=== PATIENT | male | born 1995 | race Caucasian/White ===

== ENCOUNTER 2018-12-30 19:53 | Emergency (ER) | payer SELFPAY ==
[2018-12-30] MEDS ORDERED: METHYLPREDNISOLONE 125 MG INJ ONE (20:53)
[2018-12-30] MEDS ORDERED: ALBUTEROL 2.5 MG/3 ML NEB SOL ONE (20:54)
[2018-12-30] MEDS ORDERED: NA CHLORIDE 0.9% 1,000 ML ONE (20:54)
[2018-12-30] MEDS ORDERED: IPRATROPIUM BROM 0.5MG/2.5ML ONE (20:54)
--- NOTE | 2018-12-30 22:01 | ER ---
Nurse's Notes [facility] Name: Reggie Calvo Age: 23 yrs Sex: Male : 1995 Arrival Date: 12/30/2018 Time: 19:57 Bed 26 Private MD: Diagnosis: Unspecified asthma with (acute) exacerbation Presentation: 12/30 19:59 Presenting complaint: Patient states: Asthma exacerbation for 2 days with little relief aj from rescue inhaler. Transition of care: patient was not received from another setting of care. Onset of symptoms was December 28, 2018. Risk Assessment: Do you want to hurt yourself or someone else? Patient reports no desire to harm self or others. Initial Sepsis Screen: Does the patient meet any 2 criteria? No. Patient's initial sepsis screen is negative. Does the patient have a suspected source of infection? No. Patient's initial sepsis screen is negative. Care prior to arrival: None. 19:59 Method Of Arrival: Ambulatory aj 19:59 Acuity: LINDA 4 aj Triage Assessment: 20:01 General: Appears in no apparent distress. comfortable, Behavior is calm, cooperative, aj appropriate for age. Pain: Denies pain. Neuro: Level of Consciousness is awake, alert, obeys commands, Oriented to person, place, time, situation, Appropriate for age. Respiratory: Reports shortness of breath Breath sounds with wheezes bilaterally. the patient has mild shortness of breath. Derm: Skin is intact, is healthy with good turgor, Skin is pink, warm \T\ dry. normal. Historical: - Allergies: 20:01 No Known Allergies; aj - Home Meds: 20:01 Singulair Oral [Active]; ProAir HFA inhalation inhalation [Active]; aj - PMHx: 20:01 Asthma; aj - PSHx: 20:01 None; aj - Immunization history:: Adult Immunizations up to date. - Social history:: Smoking status: Patient uses tobacco products, smokes one-half pack cigarettes per day. - Ebola Screening: : Patient negative for fever greater than or equal to 101.5 degrees Fahrenheit, and additional compatible Ebola Virus Disease symptoms Patient denies exposure to infectious person Patient denies travel to an Ebola-affected area in the 21 days before illness onset No symptoms or risks identified at this time. Screenin:34 Abuse screen: Denies threats or abuse. Denies injuries from another. Nutritional rv screening: No deficits noted. Tuberculosis screening: No symptoms or risk factors identified. Fall Risk None identified. Assessment: 20:32 General: Appears in no apparent distress. comfortable, Behavior is calm, cooperative. rv Pain: Denies pain. Neuro: Level of Consciousness is awake, alert, obeys commands, Oriented to person, place, time, situation. Cardiovascular: Patient's skin is warm and dry. Respiratory: Airway is patent Respiratory effort is even, Breath sounds with wheezes bilaterally. GI: No signs and/or symptoms were reported involving the gastrointestinal system. : No signs and/or symptoms were reported regarding the genitourinary system. EENT: No signs and/or symptoms were reported regarding the EENT system. Derm: Skin is intact. Musculoskeletal: No signs and/or symptoms reported regarding the musculoskeletal system. 21:58 Reassessment: Patient appears in no apparent distress at this time. Patient and/or rv family updated on plan of care and expected duration. Pain level reassessed. Patient is alert, oriented x 3, equal unlabored respirations, skin warm/dry/pink. Patient denies pain at this time. Patient states feeling better. Patient states symptoms have improved. Vital Signs: 20:01 BP 114 / 74; Pulse 66; Resp 21; Temp 97.8; Pulse Ox 97% on R/A; Weight 54.43 kg; Height aj 5 ft. 5 in. (165.10 cm); 21:00 BP 111 / 65; Pulse 77; Resp 17; Temp 98; Pulse Ox 96% on R/A; rv 21:49 BP 109 / 68; Pulse 73; Resp 18; Pulse Ox 100% on R/A; mg2 20:01 Body Mass Index 19.97 (54.43 kg, 165.10 cm) ED Course: 19:57 Patient arrived in ED. do 20:00 Triage completed. aj 20:01 Arm band placed on right wrist. Patient placed in an exam room. aj 20:06 Brigette Cat FNP-C is PHCP. snw 20:06 David Reyes MD is Attending Physician. snw 20:17 Joseph Harris RN is Primary Nurse. rv 20:33 Inserted saline lock: 20 gauge in right forearm, using aseptic technique. rv 20:34 Patient has correct armband on for positive identification. Bed in low position. Call rv light in reach. Side rails up X 1. Adult w/ patient. Pulse ox on. NIBP on. 21:50 No provider procedures requiring assistance completed. mg2 22:07 IV discontinued, intact, bleeding controlled, No redness/swelling at site. Pressure rv dressing applied. Administered Medications: 20:30 Drug: DuoNeb (3:1) (2.5 mg - 0.5 mg) 3 ml Route: Nebulizer; rv 20:50 Follow up: Response: Marked relief of symptoms rv 20:35 Drug: SOLU-Medrol 125 mg Route: IVP; Site: right forearm; rv 20:49 Follow up: Response: Marked relief of symptoms rv 20:35 Drug: NS 0.9% 1000 ml Route: IV; Rate: 1 bolus; Site: right forearm; rv 21:19 Follow up: IV Status: Completed infusion; IV Intake: 1000ml rv Intake: 21:19 IV: 1000ml; Total: 1000ml. rv Outcome: 22:00 Discharged to home ambulatory. rv 22:00 Condition: improved 22:00 Discharge instructions given to patient, Instructed on discharge instructions, follow up and referral plans. medication usage, Demonstrated understanding of instructions, follow-up care, medications, Prescriptions given X 3. 22:01 Discharge ordered by MD. arechiga 22:07 Patient left the ED. rv Signatures: Lucía Rivera, RN RN Brigette Galan FNP-C PROCEDURES ANALYST-Csnw Salome Alicea Michele, RN RN mg2 Vicente, Ronaldo, RN RN rv
--- NOTE | 2018-12-30 22:02 | EDPHYS ---
Physician Documentation [facility] Name: Reggie Calvo Age: 23 yrs Sex: Male : 1995 Arrival Date: 12/30/2018 Time: 19:57 Bed 26 Private MD: ED Physician David Reyes HPI: 12/30 21:28 This 23 yrs old Male presents to ER via Ambulatory with complaints of Asthma snw Exacerbation. 21:28 The patient presents to the emergency department with wheezing, Current therapy: snw albuterol inhaler, singulair. Onset: The symptoms/episode began/occurred suddenly, 2 day(s) ago, and became persistent. Modifying factors: The symptoms are alleviated by nothing. Associated signs and symptoms: The patient has no apparent associated signs or symptoms. Severity of symptoms: At their worst the symptoms were moderate in the emergency department the symptoms are unchanged. It is unknown whether or not the patient has had similar symptoms in the past. The patient has not recently seen a physician. pt unable to afford symbicort. 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 Historical: - Allergies: 20:01 No Known Allergies; aj - Home Meds: 20:01 Singulair Oral [Active]; ProAir HFA inhalation inhalation [Active]; aj - PMHx: 20:01 Asthma; aj - PSHx: 20:01 None; aj - Immunization history:: Adult Immunizations up to date. - Social history:: Smoking status: Patient uses tobacco products, smokes one-half pack cigarettes per day. - Ebola Screening: : Patient negative for fever greater than or equal to 101.5 degrees Fahrenheit, and additional compatible Ebola Virus Disease symptoms Patient denies exposure to infectious person Patient denies travel to an Ebola-affected area in the 21 days before illness onset No symptoms or risks identified at this time. ROS: 20:36 Constitutional: Negative for fever, chills, and weight loss, Eyes: Negative for injury, snw pain, redness, and discharge, ENT: Negative for injury, pain, and discharge, Neck: Negative for injury, pain, and swelling, Cardiovascular: Negative for chest pain, palpitations, and edema, Abdomen/GI: Negative for abdominal pain, nausea, vomiting, diarrhea, and constipation, Back: Negative for injury and pain, : Negative for injury, bleeding, discharge, and swelling, MS/Extremity: Negative for injury and deformity, Skin: Negative for injury, rash, and discoloration, Neuro: Negative for headache, weakness, numbness, tingling, and seizure, Psych: Negative for depression, anxiety, suicide ideation, homicidal ideation, and hallucinations. 20:36 Respiratory: Positive for cough, shortness of breath, wheezing. Exam: 20:36 Constitutional: This is a well developed, well nourished patient who is awake, alert, snw and in no acute distress. Head/Face: Normocephalic, atraumatic. Eyes: Pupils equal round and reactive to light, extra-ocular motions intact. Lids and lashes normal. Conjunctiva and sclera are non-icteric and not injected. Cornea within normal limits. Periorbital areas with no swelling, redness, or edema. ENT: Nares patent. No nasal discharge, no septal abnormalities noted. Tympanic membranes are normal and external auditory canals are clear. Oropharynx with no redness, swelling, or masses, exudates, or evidence of obstruction, uvula midline. Mucous membranes moist. Neck: Trachea midline, no thyromegaly or masses palpated, and no cervical lymphadenopathy. Supple, full range of motion without nuchal rigidity, or vertebral point tenderness. No Meningismus. Chest/axilla: Normal chest wall appearance and motion. Nontender with no deformity. No lesions are appreciated. Cardiovascular: Regular rate and rhythm with a normal S1 and S2. No gallops, murmurs, or rubs. Normal PMI, no JVD. No pulse deficits. Abdomen/GI: Soft, non-tender, with normal bowel sounds. No distension or tympany. No guarding or rebound. No evidence of tenderness throughout. Back: No spinal tenderness. No costovertebral tenderness. Full range of motion. Skin: Warm, dry with normal turgor. Normal color with no rashes, no lesions, and no evidence of cellulitis. MS/ Extremity: Pulses equal, no cyanosis. Neurovascular intact. Full, normal range of motion. Neuro: Awake and alert, GCS 15, oriented to person, place, time, and situation. Cranial nerves II-XII grossly intact. Motor strength 5/5 in all extremities. Sensory grossly intact. Cerebellar exam normal. Normal gait. Psych: Awake, alert, with orientation to person, place and time. Behavior, mood, and affect are within normal limits. 20:36 Respiratory: mild respiratory distress is noted, Respirations: labored breathing, shallow respirations, tachypnea, Breath sounds: decreased breath sounds, wheezing: Vital Signs: 20:01 BP 114 / 74; Pulse 66; Resp 21; Temp 97.8; Pulse Ox 97% on R/A; Weight 54.43 kg; Height aj 5 ft. 5 in. (165.10 cm); 21:00 BP 111 / 65; Pulse 77; Resp 17; Temp 98; Pulse Ox 96% on R/A; rv 21:49 BP 109 / 68; Pulse 73; Resp 18; Pulse Ox 100% on R/A; mg2 20:01 Body Mass Index 19.97 (54.43 kg, 165.10 cm) aj MDM: 20:07 Patient medically screened. barry 22:00 Data reviewed: vital signs, nurses notes. Data interpreted: Pulse oximetry: on room air snw is 100 %. Interpretation: normal. Counseling: I had a detailed discussion with the patient and/or guardian regarding: the historical points, exam findings, and any diagnostic results supporting the discharge/admit diagnosis, the need for outpatient follow up, to return to the emergency department if symptoms worsen or persist or if there are any questions or concerns that arise at home, smoking cessation. Response to treatment: the patient's symptoms have markedly improved after treatment. Special discussion: Based on the history and exam findings, there is no indication for further emergent testing or inpatient evaluation. I discussed with the patient/guardian the need to see the primary care provider for further evaluation of the symptoms. 12/30 20:35 Order name: IV Start; Complete Time: 20:35 rv Administered Medications: 20:30 Drug: DuoNeb (3:1) (2.5 mg - 0.5 mg) 3 ml Route: Nebulizer; rv 20:50 Follow up: Response: Marked relief of symptoms rv 20:35 Drug: SOLU-Medrol 125 mg Route: IVP; Site: right forearm; rv 20:49 Follow up: Response: Marked relief of symptoms rv 20:35 Drug: NS 0.9% 1000 ml Route: IV; Rate: 1 bolus; Site: right forearm; rv 21:19 Follow up: IV Status: Completed infusion; IV Intake: 1000ml rv Disposition: 12/31 06:49 Co-signature as Attending Physician, David Reyes MD I agree with the assessment and barry plan of care. Disposition: 12/30/18 22:01 Discharged to Home. Impression: Unspecified asthma with (acute) exacerbation. - Condition is Stable. - Discharge Instructions: Asthma, Adult, Steps to Quit Smoking, Smoking Hazards, Form - Asthma Action Plan, Adult. - Prescriptions for Zyrtec 10 mg Oral Tablet - take 1 tablet by ORAL route once daily As needed; 20 tablet. Prednisone 20 mg Oral Tablet - take 2 tablet by ORAL route once daily for 5 days; 10 tablet. Albuterol Sulfate 90 mcg/actuation - inhale 1-2 puff by INHALATION route every 4-6 hours; 1 Inhaler. - Work release form, Medication Reconciliation Form, Thank You Letter, Antibiotic Education, Prescription Opioid Use form. - Follow up: Private Physician; When: 2 - 3 days; Reason: Recheck today's complaints, Continuance of care, Re-evaluation by your physician. Follow up: Emergency Department; When: As needed; Reason: Worsening of condition. Signatures: Lucía Rivera, RN David Taveras MD MD cha Therrien, Shelly, SEED POTATO ARRANGER-C SEED POTATO ARRANGER-Csnw Joseph Harris RN RN rv Corrections: (The following items were deleted from the chart) 12/30 22:07 22:01 12/30/2018 22:01 Discharged to Home. Impression: Unspecified asthma with (acute) rv exacerbation. Condition is Stable. Discharge Instructions: Asthma, Adult, Form - Asthma Action Plan, Adult. Prescriptions for Zyrtec 10 mg Oral Tablet - take 1 tablet by ORAL route once daily As needed; 20 tablet, Prednisone 20 mg Oral Tablet - take 2 tablet by ORAL route once daily for 5 days; 10 tablet, Albuterol Sulfate 90 mcg/actuation - inhale 1-2 puff by INHALATION route every 4-6 hours; 1 Inhaler. and Forms are Work release form, Medication Reconciliation Form, Thank You Letter, Antibiotic Education, Prescription Opioid Use. Follow up: Private Physician; When: 2 - 3 days; Reason: Recheck today's complaints, Continuance of care, Re-evaluation by your physician. Follow up: Emergency Department; When: As needed; Reason: Worsening of condition. snw
== END 2018-12-30 22:07 | disposition home or self-care (01) ==
LOC: ER 19:53
DX: J45.901 Unspecified asthma with (acute) exacerbation (principal); F17.210 Nicotine dependence, cigarettes, uncomplicated
CPT/HCPCS: 94640; 96361; 96374; 99284; J2930; J7030

== ENCOUNTER 2019-01-19 13:49 | Observation (INO) | payer SELFPAY ==
--- OUTSIDE RECORDS SUMMARY | 2019-01-19 13:54 | XMS REPORT ---
:1995 Author Organization [employer] Care Team Providers Name Role Phone Cydney Mccollum Provider Role Unavailable Allergies No Known Allergies Problems Problem Type Condition Code Onset Dates Condition Status Problem Costochondral chest pain R07.1 Active Problem Allergic rhinitis, unspecified J30.9 Active Problem Asthma J45.909 Active Medications No Known Medications Results No Known Results Summary Purpose [employer] Submission
--- OUTSIDE RECORDS SUMMARY | 2019-01-19 13:54 | XMS REPORT ---
:1995 [facility] Address [address] [place]. [address] [place] [id number] Care Team Providers Name Role Phone Unavailable Unavailable Unavailable Problems This patient has no known problems. Allergies, Adverse Reactions, Alerts This patient has no known allergies or adverse reactions. Medications This patient has no known medications.
--- OUTSIDE RECORDS SUMMARY | 2019-01-19 13:54 | XMS REPORT ---
:1995 Author Organization [employer] Care Team Providers Name Role Phone Cydney Mccollum Provider Role Unavailable Allergies, Adverse Reactions, Alerts Substance Reaction Event Type Pet dander shortness of breath Non Drug Allergy Problems Problem Type Condition Code Onset Dates Condition Status Problem Costochondral chest pain R07.1 Active Problem Allergic rhinitis, unspecified J30.9 Active Problem Asthma J45.909 Active Assessment Asthma J45.909 Active Medications Medication Code Code Instructions Start End Date Status Dosage System Date Symbicort [facility] 87732515035 160-4.5 MCG/ACT Jul 08, Active 2 puffs Inhalation Twice 2019 a day Albuterol [facility] [id number] 108 (90 Base) Active 2 puffs Sulfate HFA MCG/ACT as needed Inhalation every 6 hrs Results No Known Results Summary Purpose [employer]Works Submission
--- OUTSIDE RECORDS SUMMARY | 2019-01-19 13:54 | XMS REPORT ---
:1995 Author Organization [employer] Care Team Providers Name Role Phone [place] gam[place] Provider Role Unavailable Allergies, Adverse Reactions, Alerts Substance Reaction Event Type Pet dander shortness of breath Non Drug Allergy Problems Problem Type Condition Code Onset Dates Condition Status Problem Costochondral chest pain R07.1 Active Problem Allergic rhinitis, unspecified J30.9 Active Problem Asthma J45.909 Active Assessment Hemorrhoids, external K64.4 Active Assessment Asthma J45.909 Active Medications Medication Code Code Instructions Start End Status Dosage System Date Date Symbicort [facility] 54334508832 160-4.5 MCG/ACT Jul 08, November 05, Active 2 puffs Inhalation Twice 2018 2019 a day Albuterol [facility] [address]-93 108 (90 Base) Active 2 puffs Sulfate HFA MCG/ACT as needed Inhalation every 6 hrs Results No Known Results Summary Purpose eClinicalWorks Submission
--- OUTSIDE RECORDS SUMMARY | 2019-01-19 13:54 | XMS REPORT ---
:1995 Author Organization [employer] Care Team Providers Name Role Phone Citronelle Cydney Provider Role Unavailable Allergies No Known Allergies Problems Problem Type Condition Code Onset Dates Condition Status Problem Costochondral chest pain R07.1 Active Problem Allergic rhinitis, unspecified J30.9 Active Problem Asthma J45.909 Active Medications No Known Medications Results No Known Results Summary Purpose [employer]ClinicalWorks Submission
[2019-01-19] MEDS ORDERED: dexAMETHasone 10 MG/ML VIAL ONE ×2 (13:58→14:02)
[2019-01-19] MEDS ORDERED: METHYLPREDNISOLONE 125 MG INJ ONE ×2 (13:58→14:02)
[2019-01-19] MEDS ORDERED: IPRATROPIUM BROM 0.5MG/2.5ML ONE ×2 (13:59→14:02)
[2019-01-19] MEDS ORDERED: ALBUTEROL 2.5 MG/3 ML NEB SOL ONE (13:59)
[2019-01-19] MEDS ORDERED: LEVALBUTEROL 1.25 MG/3 ML NEB ONE ×2 (14:03→15:27)
--- NOTE | 2019-01-19 14:07 | ER ---
Nurse's Notes [facility] Name: Reggie Calvo Age: 23 yrs Sex: Male : 1995 Arrival Date: 01/19/2019 Time: 13:50 Bed 19 Private MD: Diagnosis: Asthma;Acute upper respiratory infection, unspecified;Hypoxemia Presentation: 01/19 13:53 Presenting complaint: Patient states: SOB with difficulty breathing since waking up. aj Albuterol not helping. Transition of care: patient was not received from another setting of care. Onset of symptoms was January 19, 2019 at 13:53. Risk Assessment: Do you want to hurt yourself or someone else? Patient reports no desire to harm self or others. Initial Sepsis Screen: Does the patient meet any 2 criteria? No. Patient's initial sepsis screen is negative. Does the patient have a suspected source of infection? No. Patient's initial sepsis screen is negative. Care prior to arrival: None. 13:53 Method Of Arrival: Ambulatory 13:53 Acuity: LINDA 2 hb Triage Assessment: 13:54 General: Appears in no apparent distress. uncomfortable, Behavior is calm, cooperative, aj appropriate for age. Pain: Denies pain. Neuro: Level of Consciousness is awake, alert, obeys commands, Oriented to person, place, time, situation, Appropriate for age. Respiratory: Reports shortness of breath at rest Airway is patent Respiratory effort is even, unlabored, Respiratory pattern is tachypnea. Derm: Skin is intact, is healthy with good turgor, Skin is pink, warm \T\ dry. normal. Historical: - Allergies: 13:54 No Known Allergies; aj - Home Meds: 15:35 ProAir HFA inhalation [Active]; Singulair Oral [Active]; hb - PMHx: 15:35 Asthma; hb - PSHx: 15:35 None; hb - Immunization history:: Adult Immunizations up to date. - Social history:: Smoking status: Patient uses tobacco products, smokes one pack cigarettes per day. - Ebola Screening: : Patient negative for fever greater than or equal to 101.5 degrees Fahrenheit, and additional compatible Ebola Virus Disease symptoms Patient denies exposure to infectious person Patient denies travel to an Ebola-affected area in the 21 days before illness onset No symptoms or risks identified at this time. - Family history:: not pertinent. Screenin:30 Abuse screen: Denies threats or abuse. Denies injuries from another. Nutritional hb screening: No deficits noted. Tuberculosis screening: No symptoms or risk factors identified. Fall Risk None identified. Assessment: 14:00 General: Appears distressed, Behavior is cooperative, anxious, restless. Pain: Denies hb pain. Neuro: Level of Consciousness is awake, alert, obeys commands, Oriented to person, place, time, situation. Cardiovascular: Heart tones S1 S2 present Capillary refill < 3 seconds Patient's skin is warm and dry. Respiratory: Airway is patent Respiratory effort is labored, Respiratory pattern is tachypnea Breath sounds with wheezes bilaterally. GI: No signs and/or symptoms were reported involving the gastrointestinal system. : No signs and/or symptoms were reported regarding the genitourinary system. EENT: No signs and/or symptoms were reported regarding the EENT system. Derm: Skin is intact, is healthy with good turgor, Skin is pink, warm \T\ dry. Musculoskeletal: No signs and/or symptoms reported regarding the musculoskeletal system. 15:00 Reassessment: Patient and/or family updated on plan of care and expected duration. Pain hb level reassessed. Patient is alert, oriented x 3, equal unlabored respirations, skin warm/dry/pink. R22-26, respirations mildly labored, improved from previous assessment. SpO2 94-98% on RA. Dr. Reyes aware. Family remains at bedside. Vital Signs: 13:54 BP 141 / 86; Pulse 100; Resp 29; Temp 97.6; Pulse Ox 92% on R/A; Weight 54.43 kg; aj Height 5 ft. 5 in. (165.10 cm); 14:15 BP 132 / 82; Pulse 78; Resp 22; Pulse Ox 96% on R/A; hb 14:30 BP 127 / 68; Pulse 97; Resp 24; Pulse Ox 94% on R/A; Pain 0/10; hb 13:54 Body Mass Index 19.97 (54.43 kg, 165.10 cm) ED Course: 13:50 Patient arrived in ED. as 13:51 David Reyes MD is Attending Physician. [facility] 13:54 Triage completed. aj 13:54 Arm band placed on left wrist. Patient placed in an exam room. aj 14:05 Will, Salman, MD is Hospitalizing Provider. barry 14:05 Initial lab(s) drawn, by me, sent to lab. Inserted saline lock: 20 gauge in right dh3 antecubital area, using aseptic technique. Blood collected. 14:08 Jaida Beaulieu, RN is Primary Nurse. hb 14:16 XRAY Chest (1 view) In Process Unspecified. EDMS 14:20 Second set of blood cultures drawn by me. 3 14:30 Patient has correct armband on for positive identification. Bed in low position. Call hb light in reach. Side rails up X 1. 14:43 EKG done, by solid waste technician. reviewed by David Reyes MD. 3 14:51 BIPAP Sent. hb 15:55 No provider procedures requiring assistance completed. Patient admitted, IV remains in hb place. Administered Medications: 14:08 Drug: AtroVENT Aerosol 0.5 mg Route: Inhalation; hb 15:00 Follow up: Response: No adverse reaction hb 14:09 Drug: Xopenex 3.75 mg Route: Inhalation; hb 15:00 Follow up: Response: No adverse reaction hb 14:09 Drug: SOLU-Medrol 125 mg Route: IVP; Site: right antecubital; hb 14:40 Follow up: Response: No adverse reaction hb 14:09 Drug: Decadron - Dexamethasone 10 mg Route: IVP; Site: right antecubital; hb 14:40 Follow up: Response: No adverse reaction hb 14:24 Drug: Rocephin 1 grams Route: IV; Rate: per protocol; Site: right antecubital; hb 15:00 Follow up: Response: No adverse reaction; IV Status: Completed infusion hb 14:24 Drug: Magnesium Sulfate 2 grams Route: IVPB; Infused Over: 2 hrs; Site: right hb antecubital; 15:57 Follow up: IV Status: Infusion continued upon admission hb 15:24 Drug: Zithromax 500 mg Route: IVPB; Infused Over: 1 hrs; Site: right antecubital; hb 15:50 Follow up: IV Status: Infusion continued upon admission hb 15:30 Drug: Xopenex 2.5 mg Route: Inhalation; hb 15:54 Follow up: Response: No adverse reaction hb Outcome: 14:05 Decision to Hospitalize by Provider. barry 15:55 Admitted to Med/surg accompanied by tech, via wheelchair, room 224, with chart, Report hb called to Niyah HOYT 15:55 Condition: stable 15:55 Instructed on the need for admit, Demonstrated understanding of instructions. 15:55 Patient left the ED. hb Signatures: Dispatcher [employer] Lucía Sharma, David Taveras RN, MD MD cha Martinez, Amelia as Baxter, Heather, RN RN hb Herrera, Deanna 3 Martina Renee 3 Corrections: (The following items were deleted from the chart) 14:10 13:53 Acuity: LINDA 3 aj seng
--- NOTE | 2019-01-19 14:07 | EDPHYS ---
Physician Documentation [facility] Name: Reggie Calvo Age: 23 yrs Sex: Male : 1995 Arrival Date: 01/19/2019 Time: 13:50 Bed 19 Private MD: ED Physician David Reyes HPI: 01/19 14:01 This 23 yrs old Male presents to ER via Ambulatory with complaints of Asthma barry Exacerbation. 14:01 The patient presents to the emergency department with wheezing, Current therapy: barry albuterol nebs, that began without any particular precipitating event. Onset: The symptoms/episode began/occurred yesterday. Modifying factors: The symptoms are alleviated by nothing, the symptoms are aggravated by nothing. Associated signs and symptoms: The patient has no apparent associated signs or symptoms. Severity of symptoms: At their worst the symptoms were mild in the emergency department the symptoms are unchanged. The patient has not experienced similar symptoms in the past. Historical: - Allergies: 13:54 No Known Allergies; aj - Home Meds: 15:35 ProAir HFA inhalation [Active]; Singulair Oral [Active]; hb - PMHx: 15:35 Asthma; hb - PSHx: 15:35 None; hb - Immunization history:: Adult Immunizations up to date. - Social history:: Smoking status: Patient uses tobacco products, smokes one pack cigarettes per day. - Ebola Screening: : Patient negative for fever greater than or equal to 101.5 degrees Fahrenheit, and additional compatible Ebola Virus Disease symptoms Patient denies exposure to infectious person Patient denies travel to an Ebola-affected area in the 21 days before illness onset No symptoms or risks identified at this time. - Family history:: not pertinent. ROS: 14:01 Constitutional: Negative for fever, chills, and weight loss, Eyes: Negative for injury, barry pain, redness, and discharge, ENT: Negative for injury, pain, and discharge, Neck: Negative for injury, pain, and swelling, Cardiovascular: Negative for chest pain, palpitations, and edema, Abdomen/GI: Negative for abdominal pain, nausea, vomiting, diarrhea, and constipation, Back: Negative for injury and pain, : Negative for injury, bleeding, discharge, and swelling, MS/Extremity: Negative for injury and deformity, Skin: Negative for injury, rash, and discoloration, Neuro: Negative for headache, weakness, numbness, tingling, and seizure, Psych: Negative for depression, anxiety, suicide ideation, homicidal ideation, and hallucinations, Allergy/Immunology: Negative for hives, rash, and allergies, Endocrine: Negative for neck swelling, polydipsia, polyuria, polyphagia, and marked weight changes, Hematologic/Lymphatic: Negative for swollen nodes, abnormal bleeding, and unusual bruising. 14:01 Respiratory: Positive for cough, shortness of breath, wheezing, inspiratory, expiratory. Exam: 14:01 Constitutional: This is a well developed, well nourished patient who is awake, alert, barry and in no acute distress. Head/Face: Normocephalic, atraumatic. Eyes: Pupils equal round and reactive to light, extra-ocular motions intact. Lids and lashes normal. Conjunctiva and sclera are non-icteric and not injected. Cornea within normal limits. Periorbital areas with no swelling, redness, or edema. ENT: Nares patent. No nasal discharge, no septal abnormalities noted. Tympanic membranes are normal and external auditory canals are clear. Oropharynx with no redness, swelling, or masses, exudates, or evidence of obstruction, uvula midline. Mucous membranes moist. Neck: Trachea midline, no thyromegaly or masses palpated, and no cervical lymphadenopathy. Supple, full range of motion without nuchal rigidity, or vertebral point tenderness. No Meningismus. Chest/axilla: Normal chest wall appearance and motion. Nontender with no deformity. No lesions are appreciated. Cardiovascular: Regular rate and rhythm with a normal S1 and S2. No gallops, murmurs, or rubs. Normal PMI, no JVD. No pulse deficits. Abdomen/GI: Soft, non-tender, with normal bowel sounds. No distension or tympany. No guarding or rebound. No evidence of tenderness throughout. Back: No spinal tenderness. No costovertebral tenderness. Full range of motion. Male : Normal genitalia with no discharge or lesions. Skin: Warm, dry with normal turgor. Normal color with no rashes, no lesions, and no evidence of cellulitis. MS/ Extremity: Pulses equal, no cyanosis. Neurovascular intact. Full, normal range of motion. Neuro: Awake and alert, GCS 15, oriented to person, place, time, and situation. Cranial nerves II-XII grossly intact. Motor strength 5/5 in all extremities. Sensory grossly intact. Cerebellar exam normal. Normal gait. Psych: Awake, alert, with orientation to person, place and time. Behavior, mood, and affect are within normal limits. 14:01 Respiratory: moderate respiratory distress is noted, Respirations: labored breathing, that is moderate, Breath sounds: bronchial sounds, decreased breath sounds, rhonchi, + upper airway congestion. wheezing: inspiratory expiratory is heard diffusely. Vital Signs: 13:54 BP 141 / 86; Pulse 100; Resp 29; Temp 97.6; Pulse Ox 92% on R/A; Weight 54.43 kg; aj Height 5 ft. 5 in. (165.10 cm); 14:15 BP 132 / 82; Pulse 78; Resp 22; Pulse Ox 96% on R/A; hb 14:30 BP 127 / 68; Pulse 97; Resp 24; Pulse Ox 94% on R/A; Pain 0/10; hb 13:54 Body Mass Index 19.97 (54.43 kg, 165.10 cm) aj MDM: 13:58 Patient medically screened. [facility] 14:03 Data reviewed: vital signs, nurses notes, lab test result(s), EKG, radiologic studies, barry plain films. 01/19 14:01 Order name: Basic Metabolic Panel; Complete Time: 15:16 [facility] 01/19 14:01 Order name: CBC with Diff; Complete Time: 15:16 [facility] 01/19 14:01 Order name: LFT's; Complete Time: 15:16 [facility] 01/19 14:01 Order name: Magnesium; Complete Time: 15:16 [facility] 01/19 14:01 Order name: NT PRO-BNP; Complete Time: 15:16 [facility] 01/19 14:01 Order name: PT-INR; Complete Time: 15:16 [facility] 01/19 14:01 Order name: Troponin (emerg Dept Use Only); Complete Time: 15:16 [facility] 01/19 14:01 Order name: XRAY Chest (1 view); Complete Time: 15:16 [facility] 01/19 14:01 Order name: Blood Culture Adult (2) [facility] 01/19 14:01 Order name: BIPAP [facility] 01/19 14:01 Order name: Flu [facility] 01/19 14:01 Order name: EKG; Complete Time: 14:03 [facility] 01/19 14:01 Order name: Cardiac monitoring; Complete Time: 14:09 [facility] 01/19 14:01 Order name: EKG - Nurse/Tech; Complete Time: 14:51 [facility] 01/19 14:01 Order name: IV Saline Lock; Complete Time: 14:10 [facility] 01/19 14:01 Order name: Labs collected and sent; Complete Time: 14:14 [facility] 01/19 14:01 Order name: O2 Per Protocol; Complete Time: 14:10 [facility] 01/19 14:01 Order name: O2 Sat Monitoring; Complete Time: 14:14 [facility] Administered Medications: 14:08 Drug: AtroVENT Aerosol 0.5 mg Route: Inhalation; hb 15:00 Follow up: Response: No adverse reaction hb 14:09 Drug: Xopenex 3.75 mg Route: Inhalation; hb 15:00 Follow up: Response: No adverse reaction hb 14:09 Drug: SOLU-Medrol 125 mg Route: IVP; Site: right antecubital; hb 14:40 Follow up: Response: No adverse reaction hb 14:09 Drug: Decadron - Dexamethasone 10 mg Route: IVP; Site: right antecubital; hb 14:40 Follow up: Response: No adverse reaction hb 14:24 Drug: Rocephin 1 grams Route: IV; Rate: per protocol; Site: right antecubital; hb 15:00 Follow up: Response: No adverse reaction; IV Status: Completed infusion hb 14:24 Drug: Magnesium Sulfate 2 grams Route: IVPB; Infused Over: 2 hrs; Site: right hb antecubital; 15:57 Follow up: IV Status: Infusion continued upon admission hb 15:24 Drug: Zithromax 500 mg Route: IVPB; Infused Over: 1 hrs; Site: right antecubital; hb 15:50 Follow up: IV Status: Infusion continued upon admission hb 15:30 Drug: Xopenex 2.5 mg Route: Inhalation; hb 15:54 Follow up: Response: No adverse reaction hb Disposition: 01/19/19 14:05 Hospitalization ordered by Maral Solis for Inpatient Admission. Preliminary diagnosis are Asthma, Acute upper respiratory infection, unspecified, Hypoxemia. - Bed requested for Telemetry/MedSurg (Inpatient). - Status is Inpatient Admission. hb - Condition is Serious. - Problem is new. - Symptoms have improved. UTI on Admission? No Signatures: Dispatcher [employer] EDMS Magdalene Oropeza Lucía Rivera RN RN David Reyes MD MD barry Jaida Beaulieu, RN EVELINA Joe Vega RN RN ja1 Corrections: (The following items were deleted from the chart) 15:15 14:05 Hospitalization Ordered by Maral Solis MD for Inpatient Admission. Preliminary bd diagnosis is Asthma; Acute upper respiratory infection, unspecified; Hypoxemia. Bed requested for Telemetry/MedSurg (Inpatient). Status is Inpatient Admission. Condition is Serious. Problem is new. Symptoms have improved. UTI on Admission? No. barry 15:25 15:15 01/19/2019 14:05 Hospitalization Ordered by Maral Solis MD for Inpatient ja1 Admission. Preliminary diagnosis is Asthma; Acute upper respiratory infection, unspecified; Hypoxemia. Bed requested for Telemetry/MedSurg (Inpatient). Status is Inpatient Admission. Condition is Serious. Problem is new. Symptoms have improved. UTI on Admission? No. bd 15:55 15:25 01/19/2019 14:05 Hospitalization Ordered by Maral Solis MD for Inpatient Admission. Preliminary diagnosis is Asthma; Acute upper respiratory infection, unspecified; Hypoxemia. Bed requested for Telemetry/MedSurg (Inpatient). Status is Inpatient Admission. Condition is Serious. Problem is new. Symptoms have improved. UTI on Admission? No. ja1
[2019-01-19] MEDS ORDERED: CEFTRIAXONE/SWI 1gm 1 GM/10 ML SYR ONE (14:14)
[2019-01-19] MEDS ORDERED: Magnesium Sulfate 2gm IVPB 2 G/50 ML BAG IV ONE (14:14)
[2019-01-19 14:23] LABS: Absolute Lymphocytes (CBC) 2.6 K/uL (0.7-4.9); Basophils % 0.7 % (0-1.3); Hematocrit 51.5 % (39.6-49.0); Lymphocytes % 26.9 % (15.3-44.8); MPV 9.7 fL (7.6-11.3); RBC Red Blood Cell Count 5.48 M/uL (4.33-5.43)
[2019-01-19 14:26] LABS: Protime INR 1.01
[2019-01-19] MEDS ORDERED: AZITHROMYCIN IV 500 MG in NA CHLORIDE 0.9% 250 ML IVPB ONE (14:30)
--- NOTE | 2019-01-19 14:39 | RAD REPORT ---
EXAM DESCRIPTION: RAD - Chest Single View - 01/19/2019 2:14 pm CLINICAL HISTORY: Dyspnea, shortness of breath COMPARISON: None. TECHNIQUE: AP portable chest image was obtained 1407 hours . FINDINGS: Lung serrano are hyperexpanded but otherwise clear. No peribronchial thickening. Interstiti al markings are not outside of normal range. Heart and vasculature are normal. No measurable pleural effusion and no pneumothorax. No acute bony abnormality seen. No acute aortic findings suspected. IMPRESSION: No infiltrate or other acute cardiopulmonary finding seen. Hyper expanded lung serrano are present. This may be baseline for the patient but could indicate react corky airway disease.
[2019-01-19 14:51] LABS: ALT/SGPT 20 U/L (12-78); AST/SGOT 17 U/L (15-37); Albumin 4.2 g/dL (3.4-5.0); Alkaline Phosphatase 64 U/L (45-117); BUN Blood Urea Nitrogen 9 mg/dL (7-18); Bicarbonate 25 mmol/L (21-32); Bilirubin Direct 0.2 mg/dL (0-0.2); Bilirubin Total 0.9 mg/dL (0.2-1.0); Glucose Level 100 mg/dL (74-106); Magnesium 2.4 mg/dL (1.8-2.4); NT PRO-BNP 147 pg/mL (<125); Potassium 4.1 mmol/L (3.5-5.1); Protein, Total 8.2 g/dL (6.4-8.2); Sodium Level 141 mmol/L (136-145); Troponin (Emerg Dept Use Only) < 0.02 ng/mL (0.0-0.045)
[2019-01-19] MEDS ORDERED: ONDANSETRON 4 MG/2 ML VIAL IV PRN (16:43)
[2019-01-19] MEDS ORDERED: ACETAMINOPHEN 500 MG TAB PO PRN (16:43)
[2019-01-19] MEDS: METHYLPREDNISOLONE 40 MG INJ IV SCH (16:47)
[2019-01-19] MEDS: IPRATROPIUM BROM 0.5MG/2.5ML NEB SCH ×2 (18:05→20:00)
[2019-01-19] MEDS: ALBUTEROL 2.5 MG/3 ML NEB SOL NEB SCH ×2 (18:05→20:00)
[2019-01-19] MEDS: DULERA 200/5 (MOMETASONE/FORMOTEROL) INHALER IH SCH (20:11)
[2019-01-19] MEDS ORDERED: MONTELUKAST 10 MG TAB PO SCH (21:00)
[2019-01-20 01:06] LABS: Urine Appearance CLEAR; Urine Bilirubin NEGATIVE (NEG); Urine Blood NEGATIVE (NEG); Urine Color YELLOW; Urine Glucose 3+ (NEG); Urine Protein NEGATIVE (NEG); Urine Specific Gravity >=1.030 (1.005-1.030); Urine Urobilinogen 0.2 mg/dL (0.2-1.0)
[2019-01-20 01:09] LABS: Urine Microscopic Reflex NO UMIC
[2019-01-20] MEDS: METHYLPREDNISOLONE 40 MG INJ IV SCH ×2 (01:19→08:59)
[2019-01-20] MEDS: NA CHLORIDE 0.9% 1,000 ML IV SCH ×2 (02:18→02:19)
--- NOTE | 2019-01-20 03:20 | HP ---
Date of Admission: 01/19/2019 Chief Complaint: Shortness of breath. History Of Present Illness: The patient is a 23-year-old male with past medical history of asthma, c omes in with shortness of breath, which is worse than his usual wheezing and which is worsened with e xertion. The patient states he is allergic to cats and dogs; however, he has both cats and dogs and live with him. He was on Singulair and Symbicort. However, currently due to lack of insurance, he i s only using a ProAir rescue inhaler. He is not on any maintenance medications. He does have nightt beverly symptoms as well. Patient's symptoms were constant, moderate, progressively worsening, therefore he came into the ER for further evaluation. Upon arrival, his vitals showed 92% on room air. He wa s tachycardic and tachypneic. The patient was then started on breathing treatments and given IV ster oids as well as IV antibiotics, which helped to improve his symptoms. The patient has received 2 g o f magnesium. The patient was then referred for admission. When seen in the ER, he was awake, alert, oriented x3. Past Medical History: Asthma. Past Surgical History: None. Allergies: NO KNOWN DRUG ALLERGIES. Medications: ProAir rescue inhaler as needed. Family History: Mother has diabetes and pancreatitis and father of complications from coronary artery disease. Social History: Patient smokes electronic cigarettes and states he drinks every other week. Denies any illicit drug use. The patient is . Review of Systems: Ten-point system reviewed, negative except as per HPI. Physical Examination: Vital Signs: Blood pressure 141/86, pulse 100, respirations 29, temperature 97.6, O2 92% on room air . General: Awake, alert, oriented x3, in some mild respiratory distress, ill-appearing male. HEENT: Normocephalic, atraumatic. PERRLA. EOMI. Moist mucous membranes. Oropharynx is clear. No rmal dentition. Conjunctivae are anicteric. Neck: Supple. No JVD. Trachea midline. CV: S1, S2. Sinus tachycardia. Peripheral pulses present. No murmurs. Respiratory: Diminished breath sounds. Diffuse wheezing is heard. Patient is tachypneic. With use of accessory muscles. Gastrointestinal: Abdomen is soft, nontender, nondistended. Positive bowel sounds. No guarding or rigidity. Extremities: No clubbing, cyanosis, or edema. No calf tenderness. Neuro: Cranial nerves 2 through 12 intact grossly. No focal neurological deficit. Speech is normal . Strength is 5/5 bilateral upper and lower extremities. Sensation intact to light touch. Skin: No rashes, normal skin turgor. Psych: Mood is okay. Affect is full. Insight and judgment are good. Laboratory Data: Sodium 141, potassium 4.1, chloride 110, CO2 25, BUN 9, creatinine 0.94, glucose 10 0, calcium 8.6. Magnesium 2.4. Troponin less than 0.02. WBC 9.7, hemoglobin and hematocrit 17.1 an d 51.5, platelets 203, neutrophils 58%. INR 1. Influenza screen pending. Chest x-ray personally re viewed, shows no infiltrate or other acute cardiopulmonary finding. Hyperexpanded lung serrano are pr esent. This may be baseline for the patient could indicate reactive airway disease. Assessment: A 23-year-old male with: 1.Acute asthma exacerbation. The patient has moderate persistent asthma with daily symptoms and nig httime symptoms more than twice a week. The patient is allergic to cats and dogs, however, still con tinues to have pets that live with him indoors. The patient currently out of his Symbicort and Singu lair. For now, we will continue on nebulizer treatments and IV steroids. Measure peak flow now and before discharge. The patient will need an action plan upon discharge as well. 2.Acute respiratory distress, improved with supplemental oxygenation. 3.Allergic status to pet dander specifically cats and dogs. 4.Deep venous thrombosis prophylaxis with Lovenox. Plan: Admit the patient to Med-Surg, place as observation. Patient was given information on good Rx . Patient is able to apply for prescription assistance program with [employer] and can receive his Symbicort better discounted delatorre. The patient counseled regarding avoiding allergens including pet dander. The patient voiced understanding, however, at this time is not ready to part with his pets. JOSE Voice ID: [id number]
[2019-01-20] MEDS: ALBUTEROL 2.5 MG/3 ML NEB SOL NEB SCH ×4 (04:00→12:00)
[2019-01-20] MEDS: IPRATROPIUM BROM 0.5MG/2.5ML NEB SCH ×4 (04:00→12:00)
--- NOTE | 2019-01-20 05:31 | EKG ---
Test Date: 2019-01-19 Test Time: 14:39:01 Representative Government Relations: YUDI MEASUREMENT RESULTS: Intervals: Rate: 92 NJ: 136 QRSD: 92 QT: 344 QTc: 425 [place]: P: 87 NJ: 136 QRS: 265 T: 82 INTERPRETIVE STATEMENTS: Normal sinus rhythm Right atrial enlargement Right superior axis deviation Pulmonary disease pattern Incomplete right bundle branch block Abnormal ECG No previous ECG available for comparison Electronically Signed On 01-20-19 05:30:46 CDT by Wilfrido Soto
[2019-01-20 06:38] LABS: Absolute Lymphocytes (CBC) 0.7 K/uL (0.7-4.9); Basophils % 0.3 % (0-1.3); Hematocrit 42.1 % (39.6-49.0); Lymphocytes % 5.1 % (15.3-44.8); MPV 9.6 fL (7.6-11.3); RBC Red Blood Cell Count 4.49 M/uL (4.33-5.43)
[2019-01-20 06:39] LABS: BUN Blood Urea Nitrogen 8 mg/dL (7-18); Bicarbonate 22 mmol/L (21-32); Glucose Level 154 mg/dL (74-106); Potassium 3.9 mmol/L (3.5-5.1); Sodium Level 142 mmol/L (136-145)
[2019-01-20 08:16] LABS: Blood Morphology Comment NOT SEEN (NOT SEEN); Platelet Estimate ADEQ
[2019-01-20 08:26] LABS: Platelets, Giant PRESENT
[2019-01-20] MEDS: DULERA 200/5 (MOMETASONE/FORMOTEROL) INHALER IH SCH (08:59)
[2019-01-20] MEDS ORDERED: ENOXAPARIN 40 MG/0.4 ML SQ SCH (09:00)
[2019-01-20] MEDS ORDERED: POTASSIUM CL SA 10 MEQ TAB PO ONE (09:00)
--- NOTE | 2019-01-21 06:50 | DS ---
Date of Discharge: 01/20/2019 Discharge Diagnoses: 1.Acute asthma exacerbation. 2.Acute respiratory distress. 3.Allergic status to pet dander. 4.Metabolic acidosis. 5.Steroid-induced leukocytosis. 6.Nicotine dependence with cigarette smoking, uncomplicated. Hospital Course: Patient is a 23-year-old male with a past medical history of moderate persistent as thma, who has not been on his Symbicort or Singulair due to financial constraints, comes in with shor tness of breath. Patient was tachycardic, tachypneic, in respiratory distress, requiring supplementa l oxygen. He was admitted to the hospital for asthma exacerbation. He improved with nebulizer treat ments and IV steroids. Patient was able to be weaned off oxygen and was able to ambulate without dif ficulty. The patient did receive magnesium in the ER as well as a dose of antibiotics. He did not h ave any evidence of bacterial infection, therefore antibiotics were discontinued. His chest x-ray di d not show any acute infiltrates, however, did show some reactive airway disease. Patient was counse led regarding avoiding asthma triggers including pet dander. He states that currently his living sit uation has animals including a cat, however, he will make arrangements so that he is not exposed to t he cat. Overall, patient did well over the course of the hospital stay. He was encouraged to use [employer]ake, which he can download the forms to fill up [place] to request patient's assistance for the Symbicort. Patient was then cleared for discharge, sent home in a stable condition. Activity: As tolerated. Medications: As per medication reconciliation list. No smoking. Followup: Follow up with primary care physician in 2 to 3 days. Return to ER for worsening conditio n. Physical Examination: General: Awake, alert, oriented x3. No acute distress. CV: S1, S2. No murmurs. Respiratory: Moving air well bilaterally. No wheezing. Gastrointestinal: Abdomen is soft, nontender, nondistended. Positive bowel sounds. Extremities: No clubbing, cyanosis, or edema. Neurologic: Nonfocal. SA/MODL Voice ID: [id number] Report ID: [id number]
== END 2019-01-20 12:00 | disposition home or self-care (01) ==
LOC: ER 13:49 → ERHOLD 14:59 → 2ND 15:49
PROVIDERS: ADMIT Family Medicine; ATTEND Family Medicine
DX: J45.901 Unspecified asthma with (acute) exacerbation (principal); R06.03 Acute respiratory distress; E87.2 Acidosis; D72.829 Elevated white blood cell count, unspecified; F17.210 Nicotine dependence, cigarettes, uncomplicated; Z99.81 Dependence on supplemental oxygen
CPT/HCPCS: 36415; 71045; 80048; 80076; 81003; 83735; 83880; 84484; 85025; 85610; 87040; 87804; 93005; 94010; 96365; 96367; 96368; 96375; 99285; G0378; J0456; J0696; J1100; J1650; J2920; J2930; J3475; J7030; J7606

== ENCOUNTER 2019-04-29 04:29 | Emergency (ER) | payer SELFPAY ==
--- OUTSIDE RECORDS SUMMARY | 2019-04-29 04:31 | XMS REPORT ---
:1995 Author Organization [employer] Care Team Providers Name Role Phone RubyBessie gamay Provider Role Unavailable Allergies, Adverse Reactions, [...] End Status Dosage System Date Date Symbicort [facility] 23727051923 160-4.5 MCG/ACT Jul 08, November 05, Active 2 puffs Inhalation Twice 2018 2019 a day Albuterol [facility] [address]-22 108 (90 Base) Active 2 puffs Sulfate HFA MCG/ACT as needed Inhalation every 6 hrs Results No Known Results Summary Purpose [employer] Submission
--- OUTSIDE RECORDS SUMMARY | 2019-04-29 04:31 | XMS REPORT ---
[...] End Date Status Dosage System Date Symbicort [facility] 47404303990 160-4.5 MCG/ACT Jul 08, Active 2 puffs Inhalation Twice 2019 a day Albuterol [facility] [id number] 108 (90 Base) Active 2 puffs Sulfate HFA MCG/ACT as needed Inhalation every 6 hrs Results No Known Results Summary Purpose [employer] Submission
--- OUTSIDE RECORDS SUMMARY | 2019-04-29 04:31 | XMS REPORT ---
:1995 [facility] Address [address] [place]. [address] [place] [id number] Care Team Providers Name Role Phone Unavailable Unavailable Unavailable Problems This patient has no known problems. Allergies, Adverse Reactions, Alerts This patient has no known allergies or adverse reactions. Medications This patient has no known medications.
--- OUTSIDE RECORDS SUMMARY | 2019-04-29 04:31 | XMS REPORT ---
:1995 Author Organization [employer] Care Team Providers Name Role Phone [place] C[place] Provider Role Unavailable Allergies No Known Allergies Problems Problem Type Condition Code Onset Dates Condition Status Problem Costochondral chest pain R07.1 Active Problem Allergic rhinitis, unspecified J30.9 Active Problem Asthma J45.909 Active Medications No Known Medications Results No Known Results Summary Purpose [employer] Submission
[2019-04-29] MEDS ORDERED: METHYLPREDNISOLONE 125 MG INJ ONE (05:06)
[2019-04-29] MEDS ORDERED: ALBUTEROL 2.5 MG/3 ML NEB SOL ONE ×2 (05:06→05:59)
[2019-04-29] MEDS ORDERED: ONDANSETRON 4 MG/2 ML VIAL ONE (05:07)
[2019-04-29] MEDS ORDERED: MORPHINE 2 MG/ML SYR ONE (05:07)
[2019-04-29] MEDS ORDERED: PIPER/TAZO/NS 3.375gm 3.375 GM/100 ML BAG ONE (05:07)
[2019-04-29] MEDS ORDERED: NA CHLORIDE 0.9% 1,000 ML ONE (05:07)
[2019-04-29] MEDS ORDERED: IPRATROPIUM BROM 0.5MG/2.5ML ONE (05:07)
[2019-04-29 05:45] LABS: Protime INR 1.13
[2019-04-29 05:52] LABS: Absolute Lymphocytes (CBC) 3.1 K/uL (0.7-4.9); Basophils % 0.6 % (0-1.3); Hematocrit 46.3 % (39.6-49.0); Lymphocytes % 23.1 % (15.3-44.8); MPV 9.8 fL (7.6-11.3); RBC Red Blood Cell Count 5.07 M/uL (4.33-5.43)
[2019-04-29 05:59] LABS: ALT/SGPT 26 U/L (12-78); AST/SGOT 23 U/L (15-37); Albumin 4.1 g/dL (3.4-5.0); Alkaline Phosphatase 59 U/L (45-117); BUN Blood Urea Nitrogen 14 mg/dL (7-18); Bicarbonate 27 mmol/L (21-32); Bilirubin Direct 0.2 mg/dL (0-0.2); Bilirubin Total 0.5 mg/dL (0.2-1.0); Glucose Level 87 mg/dL (74-106); Magnesium 2.2 mg/dL (1.8-2.4); NT PRO-BNP 40 pg/mL (<125); Potassium 4.2 mmol/L (3.5-5.1); Protein, Total 7.7 g/dL (6.4-8.2); Sodium Level 138 mmol/L (136-145); Troponin (Emerg Dept Use Only) < 0.02 ng/mL (0.0-0.045)
[2019-04-29] MEDS ORDERED: VANCOMYCIN 1 GM/VIAL ONE (05:59)
[2019-04-29] MEDS ORDERED: NA CHLORIDE 0.9% 250 ML ONE (06:00)
[2019-04-29] MEDS ORDERED: SMZ./TMP. 800/160 MG TABLET ONE (06:03)
[2019-04-29] MEDS ORDERED: predniSONE 20 MG TAB ONE (06:03)
[2019-04-29] MEDS ORDERED: LIDOCAINE 1% W/EPI 1:100,000 MDV 20 ML VIAL ONE (06:04)
[2019-04-29] MEDS ORDERED: DOXYCYCLINE 100 MG CAP PO ONE (06:04)
--- NOTE | 2019-04-29 06:07 | ER ---
Nurse's Notes [facility] Name: Reggie Calvo Age: 24 yrs Sex: Male : 1995 Arrival Date: 04/29/2019 Time: 04:37 Bed 7 Private MD: Diagnosis: Asthma;Cutaneous abscess of buttock;Tobacco abuse counseling;Tobacco use Presentation: 04/29 04:37 Presenting complaint: Patient states: cough and int SOB for past couple weeks. Reports aa1 hx of asthma and has not had inhaler. Also states he's allergic to dogs and has been around dogs lately. Transition of care: patient was not received from another setting of care. Onset of symptoms was March 2019. Risk Assessment: Do you want to hurt yourself or someone else? Patient reports no desire to harm self or others. Initial Sepsis Screen: Does the patient meet any 2 criteria? No. Patient's initial sepsis screen is negative. Does the patient have a suspected source of infection? No. Patient's initial sepsis screen is negative. Care prior to arrival: None. 04:37 Method Of Arrival: Ambulatory aa1 04:37 Acuity: LINDA 4 aa1 Triage Assessment: 04:37 General: Appears in no apparent distress. comfortable, Behavior is calm, cooperative, aa1 appropriate for age. Historical: - Allergies: 05:24 No Known Allergies; rr5 - Home Meds: 05:24 Albuterol Nebulizer [Active]; ProAir HFA inhalation [Active]; Singulair Oral [Active]; rr5 - PMHx: 05:24 Asthma; rr5 - PSHx: 05:24 None; rr5 - Immunization history:: Flu vaccine is not up to date. - Social history:: Smoking status: Patient uses tobacco products, smokes one pack cigarettes per day. - Ebola Screening: : Patient denies exposure to infectious person Patient denies travel to an Ebola-affected area in the 21 days before illness onset. Screenin:37 Abuse screen: Denies threats or abuse. Denies injuries from another. Nutritional rr5 screening: No deficits noted. Tuberculosis screening: No symptoms or risk factors identified. Fall Risk None identified. Total Braun Fall Scale indicates No Risk (0-24 pts). Assessment: 04:39 General: Appears uncomfortable, Behavior is calm, cooperative, appropriate for age. rr5 Pain: Complains of pain in chest Pain does not radiate. Pain currently is 5 out of 10 on a pain scale. Quality of pain is described as aching, Pain began gradually, Is intermittent. Neuro: Level of Consciousness is awake, alert, obeys commands, Oriented to person, place, time, situation, Appropriate for age. Cardiovascular: Capillary refill < 3 seconds Patient's skin is warm and dry. Respiratory: Reports shortness of breath Airway is patent Respiratory effort is even, unlabored, Respiratory pattern is regular, symmetrical, tachypnea Breath sounds with wheezes. GI: No signs and/or symptoms were reported involving the gastrointestinal system. : No signs and/or symptoms were reported regarding the genitourinary system. EENT: Reports abscess right butt area. Derm: Skin is intact, is healthy with good turgor, Skin temperature is warm. Musculoskeletal: Circulation, motion, and sensation intact. Capillary refill < 3 seconds. 04:39 Cardiovascular: Reports chest pain. rr5 05:30 Reassessment: Patient appears in no apparent distress at this time. Patient is alert, rr5 oriented x 3, equal unlabored respirations, skin warm/dry/pink. Patient states feeling better. Patient states symptoms have improved. Vital Signs: 04:37 BP 127 / 102; Pulse 83; Resp 20; Temp 97.8; Pulse Ox 97% on R/A; Weight 54.43 kg; aa1 Height 5 ft. 5 in. (165.10 cm); Pain 5/10; 05:30 BP 115 / 70; Pulse 80; Resp 17; Pulse Ox 98% on R/A; Pain 0/10; rr5 06:30 BP 110 / 62; Pulse 89; Resp 16; Pulse Ox 98% on R/A; rr5 07:00 BP 116 / 84; Pulse 80; Resp 18; Temp 99.2; Pulse Ox 98% on R/A; Pain 0/10; rr5 04:37 Body Mass Index 19.97 (54.43 kg, 165.10 cm) aa1 ED Course: 04:37 Patient arrived in ED. aa1 04:37 Lang Man RN is Primary Nurse. rr5 04:37 Patient has correct armband on for positive identification. Bed in low position. Call rr5 light in reach. Side rails up X 1. Pulse ox on. NIBP on. 04:37 Arm band placed on right wrist. aa1 04:41 Triage completed. aa1 04:51 David Reyes MD is Attending Physician. barry 05:13 EKG done, by ED staff, reviewed by David Reyes MD. Inserted saline lock: 20 gauge in ao right antecubital area, using aseptic technique. Blood collected. 05:51 XRAY Chest (1 view) In Process Unspecified. EDMS 06:05 Isidro Colorado MD is Referral Physician. barry 06:05 Tc Palomo MD is Referral Physician. barry 06:50 Assist provider with I \T\ D: of an abscess on right gluteal area Set up I\T\D tray. rr 5 Performed by David Reyes MD Culture sent to lab. Wound packed. iodoform gauze, Dressing with Neosporin and 4X4s, tape Patient tolerated well. 06:50 IV discontinued, intact, bleeding controlled, No redness/swelling at site. Pressure rr5 dressing applied. Administered Medications: 05:10 Drug: Albuterol - atroVENT (3:1) (2.5 mg - 0.5 mg) 3 ml Route: Nebulizer; rr5 06:00 Follow up: Response: No adverse reaction; Marked relief of symptoms rr5 05:11 Drug: SOLU-Medrol 125 mg Route: IVP; Site: right antecubital; rr5 06:11 Follow up: Response: No adverse reaction rr5 05:15 Drug: NS 0.9% 1000 ml Route: IV; Rate: 1 bolus; Site: right antecubital; rr5 06:15 Follow up: Response: No adverse reaction; IV Status: Completed infusion; IV Intake: rr5 1000ml 05:15 Drug: Zofran 4 mg Route: IVP; Site: right antecubital; rr5 07:02 Follow up: Response: No adverse reaction rr5 05:17 Drug: morphine 2 mg {Note: rass 0.} Route: IVP; Site: right antecubital; rr5 06:20 Follow up: Response: No adverse reaction; Pain is decreased; RASS: Alert and Calm (0) rr5 05:23 Dru.375 grams of (Zosyn 3.375 grams, NS 0.9% 100 ml) Route: IVPB; Infused Over: 60 rr5 mins; Site: right antecubital; 06:20 Follow up: Response: No adverse reaction; IV Status: Completed infusion; IV Intake: rr5 100ml 05:59 Not Given (Duplicate Order): vancoMYCIN 1 grams IVPB once over 2 hrs barry 06:07 Drug: Albuterol 5 mg Route: Inhalation; rr5 06:08 Drug: predniSONE 40 mg Route: PO; rr5 07:01 Follow up: Response: No adverse reaction; Marked relief of symptoms rr5 06:08 Drug: Bactrim (160 mg-800 mg (DS) 1 tablet Route: PO; rr5 07:01 Follow up: Response: No adverse reaction rr5 06:08 Drug: Doxycycline 100 mg Route: PO; rr5 07:00 Follow up: Response: No adverse reaction rr5 06:18 Drug: Lidocaine-Epinephrine -1%: (1:100,000) 10 ml {Note: given by dr. reyes.} rr5 Volume: 20 ml; Route: Infiltration; 06:20 Drug: Albuterol 5 mg Route: Inhalation; rr5 06:30 Drug: Albuterol 5 mg Route: Inhalation; rr5 07:01 Follow up: Response: No adverse reaction; Marked relief of symptoms rr5 Intake: 06:15 IV: 1000ml; Total: 1000ml. rr5 06:20 IV: 100ml; Total: 1100ml. rr5 Outcome: 06:06 Discharge ordered by . barry 07:00 Discharged to home ambulatory. rr5 07:00 Condition: stable 07:00 Discharge instructions given to patient, Instructed on discharge instructions, follow up and referral plans. medication usage, Demonstrated understanding of instructions, follow-up care, medications, Prescriptions given X 4. 07:05 Patient left the ED. rr5 Addendum: 05/02/2019 09:56 Addendum: Culture Results: Positive wound culture. No further action required. Bacteria i w sensitive to prescribed antibiotic. Signatures: Dispatcher [employer] EDMS Susy Sorensen RN RN aaDavid Cardenas MD MD cha Williams, Irene, RN RN iw Ortiz, Alex, RN RN ao Roque, Raymond RN RN rr5 Corrections: (The following items were deleted from the chart) 04/29 05:26 04:39 EENT: No signs and/or symptoms were reported regarding the EENT system. rr5 rr5
--- NOTE | 2019-04-29 06:07 | EDPHYS ---
Physician Documentation [facility] Name: Reggie Calvo Age: 24 yrs Sex: Male : 1995 Arrival Date: 04/29/2019 Time: 04:37 Bed 7 Private MD: ED Physician David Reyes HPI: 04/29 05:03 This 24 yrs old Male presents to ER via Ambulatory with complaints of barry Shortness Of Breath. 05:03 The patient has shortness of breath at rest, with light activity. Onset: The barry symptoms/episode began/occurred 2 day(s) ago. Duration: The symptoms are continuous, and are steadily getting worse. Historical: - Allergies: 05:24 No Known Allergies; rr5 - Home Meds: 05:24 Albuterol Nebulizer [Active]; ProAir HFA inhalation [Active]; Singulair Oral [Active]; rr5 - PMHx: 05:24 Asthma; rr5 - PSHx: 05:24 None; rr5 - Immunization history:: Flu vaccine is not up to date. - Social history:: Smoking status: Patient uses tobacco products, smokes one pack cigarettes per day. - Ebola Screening: : Patient denies exposure to infectious person Patient denies travel to an Ebola-affected area in the 21 days before illness onset. ROS: 05:03 Constitutional: Negative for fever, chills, and weight loss, Eyes: Negative for injury, barry pain, redness, and discharge, ENT: Negative for injury, pain, and discharge, Neck: Negative for injury, pain, and swelling, Cardiovascular: Negative for chest pain, palpitations, and edema, Abdomen/GI: Negative for abdominal pain, nausea, vomiting, diarrhea, and constipation, Back: Negative for injury and pain, : Negative for injury, bleeding, discharge, and swelling, MS/Extremity: Negative for injury and deformity, Neuro: Negative for headache, weakness, numbness, tingling, and seizure, Psych: Negative for depression, anxiety, suicide ideation, homicidal ideation, and hallucinations, Allergy/Immunology: Negative for hives, rash, and allergies, Endocrine: Negative for neck swelling, polydipsia, polyuria, polyphagia, and marked weight changes, Hematologic/Lymphatic: Negative for swollen nodes, abnormal bleeding, and unusual bruising. 05:03 Respiratory: Positive for cough, shortness of breath, wheezing, inspiratory, expiratory. 05:03 Skin: Positive for abscess, cellulitis, swelling, of the right gluteus harpreet. Exam: 05:03 Constitutional: This is a well developed, well nourished patient who is awake, alert, barry and in no acute distress. Head/Face: Normocephalic, atraumatic. Eyes: Pupils equal round and reactive to light, extra-ocular motions intact. Lids and lashes normal. Conjunctiva and sclera are non-icteric and not injected. Cornea within normal limits. Periorbital areas with no swelling, redness, or edema. ENT: Nares patent. No nasal discharge, no septal abnormalities noted. Tympanic membranes are normal and external auditory canals are clear. Oropharynx with no redness, swelling, or masses, exudates, or evidence of obstruction, uvula midline. Mucous membranes moist. Neck: Trachea midline, no thyromegaly or masses palpated, and no cervical lymphadenopathy. Supple, full range of motion without nuchal rigidity, or vertebral point tenderness. No Meningismus. Chest/axilla: Normal chest wall appearance and motion. Nontender with no deformity. No lesions are appreciated. Cardiovascular: Regular rate and rhythm with a normal S1 and S2. No gallops, murmurs, or rubs. Normal PMI, no JVD. No pulse deficits. Abdomen/GI: Soft, non-tender, with normal bowel sounds. No distension or tympany. No guarding or rebound. No evidence of tenderness throughout. Back: No spinal tenderness. No costovertebral tenderness. Full range of motion. Male : Normal genitalia with no discharge or lesions. MS/ Extremity: Pulses equal, no cyanosis. Neurovascular intact. Full, normal range of motion. Neuro: Awake and alert, GCS 15, oriented to person, place, time, and situation. Cranial nerves II-XII grossly intact. Motor strength 5/5 in all extremities. Sensory grossly intact. Cerebellar exam normal. Normal gait. Psych: Awake, alert, with orientation to person, place and time. Behavior, mood, and affect are within normal limits. 05:03 Respiratory: mild respiratory distress is noted, Respirations: labored breathing, that is mild, that is moderate, Breath sounds: bronchial sounds, decreased breath sounds, rhonchi, that are mild, wheezing: inspiratory expiratory Vital Signs: 04:37 BP 127 / 102; Pulse 83; Resp 20; Temp 97.8; Pulse Ox 97% on R/A; Weight 54.43 kg; aa1 Height 5 ft. 5 in. (165.10 cm); Pain 5/10; 05:30 BP 115 / 70; Pulse 80; Resp 17; Pulse Ox 98% on R/A; Pain 0/10; rr5 06:30 BP 110 / 62; Pulse 89; Resp 16; Pulse Ox 98% on R/A; rr5 07:00 BP 116 / 84; Pulse 80; Resp 18; Temp 99.2; Pulse Ox 98% on R/A; Pain 0/10; rr5 04:37 Body Mass Index 19.97 (54.43 kg, 165.10 cm) aa1 MDM: 04:51 Patient medically screened. [facility] [place] 05:03 Data reviewed: vital signs, nurses notes, lab test result(s), EKG, radiologic studies, barry plain films. 04/29 05:02 Order name: Basic Metabolic Panel [facility] [place] 04/29 05:02 Order name: CBC with Diff; Complete Time: 05:59 [facility] [place] 04/29 05:02 Order name: LFT's [facility] [place] 04/29 05:02 Order name: Magnesium [facility] [place] 04/29 05:02 Order name: NT PRO-BNP [facility] [place] 04/29 05:02 Order name: PT-INR; Complete Time: 05:55 [facility] [place] 04/29 05:02 Order name: Troponin (emerg Dept Use Only) [facility] [place] 04/29 05:02 Order name: XRAY Chest (1 view) [facility] [place] 04/29 06:03 Order name: Wound Culture [facility] [place] 04/29 05:02 Order name: EKG; Complete Time: 05:03 [facility] [place] 04/29 05:02 Order name: Cardiac monitoring; Complete Time: 05:19 [facility] [place] 04/29 05:02 Order name: EKG - Nurse/Tech; Complete Time: 05:19 [facility] [place] 04/29 05:02 Order name: IV Saline Lock; Complete Time: 05:19 [facility] [place] 04/29 05:02 Order name: Labs collected and sent; Complete Time: 05:19 [facility] [place] 04/29 05:02 Order name: O2 Per Protocol; Complete Time: 05:19 [facility] [place] 04/29 05:02 Order name: O2 Sat Monitoring; Complete Time: 05:19 [facility] [place] 04/29 06:03 Order name: Dressing - Wound; Complete Time: 06:18 [facility] [place] 04/29 06:03 Order name: Gloves, Sterile; Complete Time: 06:18 [facility] [place] 04/29 06:03 Order name: Setup Suture Tray; Complete Time: 06:18 [facility] [place] Administered Medications: 05:10 Drug: Albuterol - atroVENT (3:1) (2.5 mg - 0.5 mg) 3 ml Route: Nebulizer; rr5 06:00 Follow up: Response: No adverse reaction; Marked relief of symptoms rr5 05:11 Drug: SOLU-Medrol 125 mg Route: IVP; Site: right antecubital; rr5 06:11 Follow up: Response: No adverse reaction rr5 05:15 Drug: NS 0.9% 1000 ml Route: IV; Rate: 1 bolus; Site: right antecubital; rr5 06:15 Follow up: Response: No adverse reaction; IV Status: Completed infusion; IV Intake: rr5 1000ml 05:15 Drug: Zofran 4 mg Route: IVP; Site: right antecubital; rr5 07:02 Follow up: Response: No adverse reaction rr5 05:17 Drug: morphine 2 mg {Note: rass 0.} Route: IVP; Site: right antecubital; rr5 06:20 Follow up: Response: No adverse reaction; Pain is decreased; RASS: Alert and Calm (0) rr5 05:23 Dru.375 grams of (Zosyn 3.375 grams, NS 0.9% 100 ml) Route: IVPB; Infused Over: 60 rr5 mins; Site: right antecubital; 06:20 Follow up: Response: No adverse reaction; IV Status: Completed infusion; IV Intake: rr5 100ml 05:59 Not Given (Duplicate Order): vancoMYCIN 1 grams IVPB once over 2 hrs barry 06:07 Drug: Albuterol 5 mg Route: Inhalation; rr5 06:08 Drug: predniSONE 40 mg Route: PO; rr5 07:01 Follow up: Response: No adverse reaction; Marked relief of symptoms rr5 06:08 Drug: Bactrim (160 mg-800 mg (DS) 1 tablet Route: PO; rr5 07:01 Follow up: Response: No adverse reaction rr5 06:08 Drug: Doxycycline 100 mg Route: PO; rr5 07:00 Follow up: Response: No adverse reaction rr5 06:18 Drug: Lidocaine-Epinephrine -1%: (1:100,000) 10 ml {Note: given by dr. reyes.} rr5 Volume: 20 ml; Route: Infiltration; 06:20 Drug: Albuterol 5 mg Route: Inhalation; rr5 06:30 Drug: Albuterol 5 mg Route: Inhalation; rr5 07:01 Follow up: Response: No adverse reaction; Marked relief of symptoms rr5 Disposition: 04/29/19 06:06 Discharged to Home. Impression: Asthma, Cutaneous abscess of buttock, Tobacco abuse counseling, Tobacco use. - Condition is Stable. - Discharge Instructions: Skin Abscess, Asthma, Adult, Incision and Drainage, Steps to Quit Smoking, Smoking Hazards, Skin Abscess, [id number], Asthma, Adult, Lybr-td-Iumj, Steps to Quit Smoking, [id number]-[id number]. - Prescriptions for Albuterol Sulfate 2.5 mg /3 mL (0.083 %) Inhalation Solution for Nebulization - inhale 1 unit by NEBULIZATION route every 8 hours As needed; 1 box. Doxycycline Hyclate 100 mg Oral Tablet - take 1 tablet by ORAL route every 12 hours; 20 tablet. Bactrim DS 800- 160 mg Oral Tablet - take 1 tablet by ORAL route every 12 hours for 10 days; 20 tablet. Prednisone 20 mg Oral Tablet - take 2 tablets by ORAL route once daily for 6 days; 12 tablet. Albuterol Sulfate 90 mcg/actuation - inhale 1-2 puff by INHALATION route every 4-6 hours; 1 Inhaler. - Medication Reconciliation Form, Thank You Letter, Antibiotic Education, Prescription Opioid Use form. - Follow up: Private Physician; When: 2 - 3 days; Reason: Recheck today's complaints, Continuance of care, Re-evaluation by your physician. Follow up: Isidro [place] MD; When: 2 - 3 days; Reason: Recheck today's complaints, Re-evaluation by your physician. Follow up: Tc Palomo MD; When: 2 - 3 days; Reason: Recheck today's complaints, Re-evaluation by your physician. - Problem is new. - Symptoms have improved. Signatures: Dispatcher [employer] EDSusy Huddleston RN RN aa1 Eric, David, MD MD barry Man, Lang, RN RN rr5 Corrections: (The following items were deleted from the chart) 07:05 06:06 04/29/2019 06:06 Discharged to Home. Impression: Asthma; Cutaneous abscess of rr5 buttock; Tobacco abuse counseling; Tobacco use. Condition is Stable. Forms are Medication Reconciliation Form, Thank You Letter, Antibiotic Education, Prescription Opioid Use. Follow up: Private Physician; When: 2 - 3 days; Reason: Recheck today's complaints, Continuance of care, Re-evaluation by your physician. Follow up: Isidro [place]; When: 2 - 3 days; Reason: Recheck today's complaints, Re-evaluation by your physician. Follow up: Tc Palomo; When: 2 - 3 days; Reason: Recheck today's complaints, Re-evaluation by your physician. Problem is new. Symptoms have improved. barry
[2019-04-29 07:11] VITALS: O2SAT 98
[2019-04-29 07:13] VITALS: BP 116/84; TEMP 99.2
--- NOTE | 2019-04-29 07:54 | EKG ---
Test Date: 2019-04-29 Test Time: 05:14:48 Internal Grinder Tender: MISTY MEASUREMENT RESULTS: Intervals: Rate: 75 [place]: 142 QRSD: 96 QT: 360 QTc: 402 [place]: P: 87 [place]: 142 QRS: 20 T: 77 INTERPRETIVE STATEMENTS: Normal sinus rhythm with sinus arrhythmia Right atrial enlargement Incomplete right bundle branch block Borderline ECG Compared to ECG 01/19/2019 14:39:01 Right superior axis no longer present Electronically Signed On 04-29-19 07:53:59 CLERICAL ADVISER by Wilfrido Soto
--- NOTE | 2019-04-29 08:44 | RAD REPORT ---
EXAM DESCRIPTION: RAD - Chest Single View - 04/29/2019 5:54 am CLINICAL HISTORY: Cough;Dyspnea Chest pain. COMPARISON: Chest Single View dated 01/19/2019 FINDINGS: Portable technique limits examination quality. The lungs are grossly clear. The heart is normal in size. No displaced fractures. IMPRESSION: No acute intrathoracic process suspected.
== END 2019-04-29 07:05 | disposition home or self-care (01) ==
LOC: ER 04:29
DX: J45.909 Unspecified asthma, uncomplicated (principal); L02.31 Cutaneous abscess of buttock; Z72.0 Tobacco use; Z71.6 Tobacco abuse counseling
CPT/HCPCS: 36415; 71045; 80048; 80076; 83735; 83880; 84484; 85025; 85610; 87070; 87077; 87186; 87205; 93005; J2270; J2405; J2543; J2930; J7030; J7512

== ENCOUNTER 2019-05-09 03:38 | Emergency (ER) | payer SELFPAY ==
--- OUTSIDE RECORDS SUMMARY | 2019-05-09 03:40 | XMS REPORT ---
:1995 Author Organization [employer] Care Team Providers Name Role Phone HooppoleBessie gamay Provider Role Unavailable Allergies, Adverse Reactions, [...] End Status Dosage System Date Date Symbicort [facility] [id number] 160-4.5 MCG/ACT Jul 08, November 05, Active 2 puffs Inhalation Twice 2018 2019 a day Albuterol [facility] [id number] 108 (90 Base) Active 2 puffs Sulfate HFA MCG/ACT as needed Inhalation every 6 hrs Results No Known Results Summary Purpose [employer] Submission
--- OUTSIDE RECORDS SUMMARY | 2019-05-09 03:40 | XMS REPORT ---
:1995 Author Organization [employer] Care Team Providers Name Role Phone [place] Provider Role Unavailable Allergies No Known Allergies Problems Problem Type Condition Code Onset Dates Condition Status Problem Costochondral chest pain R07.1 Active Problem Allergic rhinitis, unspecified J30.9 Active Problem Asthma J45.909 Active Medications No Known Medications Results No Known Results Summary Purpose [employer] Submission
--- OUTSIDE RECORDS SUMMARY | 2019-05-09 03:40 | XMS REPORT ---
:1995 [facility] Address [address] [place]. [address] [place] [id number] Care Team Providers Name Role Phone Unavailable Unavailable Unavailable Problems This patient has no known problems. Allergies, Adverse Reactions, Alerts This patient has no known allergies or adverse reactions. Medications This patient has no known medications.
--- OUTSIDE RECORDS SUMMARY | 2019-05-09 03:40 | XMS REPORT ---
[...] End Date Status Dosage System Date Symbicort [facility] [id number] 160-4.5 MCG/ACT Jul 08, Active 2 puffs Inhalation Twice 2019 a day Albuterol [facility] [id number] 108 (90 Base) Active 2 puffs Sulfate HFA MCG/ACT as needed Inhalation every 6 hrs Results No Known Results Summary Purpose [employer] Submission
[2019-05-09] MEDS ORDERED: ALBUTEROL 2.5 MG/3 ML NEB SOL ONE (03:48)
[2019-05-09] MEDS ORDERED: IPRATROPIUM BROM 0.5MG/2.5ML ONE (03:48)
--- NOTE | 2019-05-09 04:27 | EDPHYS ---
Physician Documentation [facility] Name: Reggie Calvo Age: 24 yrs Sex: Male : 1995 Arrival Date: 05/09/2019 Time: 03:41 Bed 8 Private MD: ED Physician Moshe Pride HPI: 05/09 04:27 This 24 yrs old Male presents to ER via Ambulatory with complaints of tw4 Shortness Of Breath. 04:27 The patient has shortness of breath at rest. Onset: The symptoms/episode began/occurred tw4 2 day(s) ago. Duration: The symptoms are continuous, and are unchanged since they started. The patient's shortness of breath has no apparent modifying factors. Associated signs and symptoms: The patient has no apparent associated signs or symptoms. Severity of symptoms: At their worst the symptoms were mild in the emergency department the symptoms are unchanged. The patient has experienced similar episodes in the past, several times. Historical: - Allergies: 03:50 No Known Allergies; aa1 - Home Meds: 03:50 Albuterol Inhl [Active]; ProAir HFA inhalation [Active]; Singulair Oral [Active]; aa1 Prednisone Oral [Active]; - PMHx: 03:50 Asthma; aa1 - PSHx: 03:50 None; aa1 - Immunization history:: Flu vaccine is not up to date. - Social history:: Smoking status: Patient uses tobacco products, reports quitting a couple weeks ago. - Ebola Screening: : Patient denies exposure to infectious person Patient denies travel to an Ebola-affected area in the 21 days before illness onset. ROS: 04:27 Constitutional: Negative for fever, chills, and weight loss, Eyes: Negative for injury, tw4 pain, redness, and discharge, Cardiovascular: Negative for chest pain, palpitations, and edema, Abdomen/GI: Negative for abdominal pain, nausea, vomiting, diarrhea, and constipation, Back: Negative for injury and pain, MS/Extremity: Negative for injury and deformity, Skin: Negative for injury, rash, and discoloration, Neuro: Negative for headache, weakness, numbness, tingling, and seizure. 04:27 Respiratory: Positive for shortness of breath, wheezing. Exam: 04:27 Constitutional: This is a well developed, well nourished patient who is awake, alert, tw4 and in no acute distress. Head/Face: Normocephalic, atraumatic. Chest/axilla: Normal chest wall appearance and motion. Nontender with no deformity. No lesions are appreciated. Cardiovascular: Regular rate and rhythm with a normal S1 and S2. No gallops, murmurs, or rubs. Normal PMI, no JVD. No pulse deficits. Abdomen/GI: Soft, non-tender, with normal bowel sounds. No distension or tympany. No guarding or rebound. No evidence of tenderness throughout. Back: No spinal tenderness. No costovertebral tenderness. Full range of motion. Skin: Warm, dry with normal turgor. Normal color with no rashes, no lesions, and no evidence of cellulitis. MS/ Extremity: Pulses equal, no cyanosis. Neurovascular intact. Full, normal range of motion. Neuro: Awake and alert, GCS 15, oriented to person, place, time, and situation. Cranial nerves II-XII grossly intact. Motor strength 5/5 in all extremities. Sensory grossly intact. Cerebellar exam normal. Normal gait. 04:27 Respiratory: the patient does not display signs of respiratory distress, Respirations: normal, Breath sounds: wheezing: Vital Signs: 03:50 BP 140 / 108; Pulse 95; Resp 24; Temp 97.6; Pulse Ox 98% on R/A; Weight 54.43 kg; aa1 Height 5 ft. 5 in. (165.10 cm); Pain 5/10; 04:10 BP 119 / 78; Pulse 91; Resp 20; Pulse Ox 100% on Nebulizer Mask; rr5 03:50 Body Mass Index 19.97 (54.43 kg, 165.10 cm) aa1 MDM: 03:46 Patient medically screened. tw4 03:47 Data reviewed: vital signs, nurses notes. Counseling: I had a detailed discussion with tw4 the patient and/or guardian regarding: smoking cessation. 04:27 Differential diagnosis: asthma, Bronchitis pneumonia, Pneumothorax reactive airway tw4 disease. Antibiotic administration: Not indicated, the patient does not have an appreciated infiltrate. Data interpreted: Pulse oximetry: Interpretation: normal. Medication response: albuterol nebulizer treatment(s) relieved the patient's symptoms. The patient is no longer wheezing. Response to treatment: the patient's symptoms have resolved after treatment, and as a result, I will discharge patient. Special discussion: I discussed with the patient/guardian in detail that at this point there is no indication for admission to the hospital. It is understood, however, that if the symptoms persist or worsen the patient needs to return immediately for re-evaluation. Administered Medications: 03:55 Drug: Albuterol - atroVENT (3:1) (2.5 mg - 0.5 mg) 3 ml Route: Nebulizer; rr5 04:15 Follow up: Response: No adverse reaction; Marked relief of symptoms ea Disposition: 05/09/19 04:25 Discharged to Home. Impression: Mild intermittent asthma with (acute) exacerbation. - Condition is Stable. - Discharge Instructions: Asthma, Adult, Metered Dose Inhaler (No Spacer Used). - Prescriptions for Advair Diskus 500- 50 mcg/Dose Inhalation Disk with Device - inhale 1 puff by INHALATION route every 12 hours; 1 packet. - Medication Reconciliation Form, Thank You Letter, Antibiotic Education, Prescription Opioid Use form. - Follow up: Private Physician; When: Upon discharge from the Emergency Department; Reason: Recheck today's complaints, Continuance of care. - Problem is an ongoing problem. - Symptoms have improved. Signatures: Susy Sorensen RN RN aa1 Annie Cason RN RN Moshe Delgado MD MD tw4 Lang Man RN RN rr5 Corrections: (The following items were deleted from the chart) 04:32 04:25 05/09/2019 04:25 Discharged to Home. Impression: Mild intermittent asthma with ea (acute) exacerbation. Condition is Stable. Forms are Medication Reconciliation Form, Thank You Letter, Antibiotic Education, Prescription Opioid Use. Follow up: Private Physician; When: Upon discharge from the Emergency Department; Reason: Recheck today's complaints, Continuance of care. Problem is an ongoing problem. Symptoms have improved. tw4
--- NOTE | 2019-05-09 04:27 | ER ---
Nurse's Notes [facility] Name: Reggie Calvo Age: 24 yrs Sex: Male : 1995 Arrival Date: 05/09/2019 Time: 03:41 Bed 8 Private MD: Diagnosis: Mild intermittent asthma with (acute) exacerbation Presentation: 05/09 03:48 Presenting complaint: Patient states: cough \T\ SOB for past couply days; not relied with aa1 breathing tx. Transition of care: patient was not received from another setting of care. Onset of symptoms was May 05, 2019. Risk Assessment: Do you want to hurt yourself or someone else? Patient reports no desire to harm self or others. Initial Sepsis Screen: Does the patient meet any 2 criteria? RR > 20 per min. HR > 90 bpm. Does the patient have a suspected source of infection? No. Patient's initial sepsis screen is negative. Care prior to arrival: None. 03:48 Method Of Arrival: Ambulatory aa1 03:48 Acuity: LINDA 3 aa1 Triage Assessment: 03:50 General: Appears in no apparent distress. uncomfortable, Behavior is calm, cooperative, aa1 appropriate for age. Historical: - Allergies: 03:50 No Known Allergies; aa1 - Home Meds: 03:50 Albuterol Inhl [Active]; ProAir HFA inhalation [Active]; Singulair Oral [Active]; aa1 Prednisone Oral [Active]; - PMHx: 03:50 Asthma; aa1 - PSHx: 03:50 None; aa1 - Immunization history:: Flu vaccine is not up to date. - Social history:: Smoking status: Patient uses tobacco products, reports quitting a couple weeks ago. - Ebola Screening: : Patient denies exposure to infectious person Patient denies travel to an Ebola-affected area in the 21 days before illness onset. Screenin:48 Abuse screen: Denies threats or abuse. Denies injuries from another. Nutritional rr5 screening: No deficits noted. Tuberculosis screening: No symptoms or risk factors identified. Fall Risk None identified. Total Braun Fall Scale indicates No Risk (0-24 pts). Assessment: 03:48 General: Appears uncomfortable, mild distress. Behavior is calm, cooperative, rr5 appropriate for age, agitated. Pain: Complains of pain in back and chest Pain does not radiate. Pain currently is 5 out of 10 on a pain scale. Quality of pain is described as aching, Pain began gradually, Is intermittent. Neuro: Level of Consciousness is awake, alert, obeys commands, Oriented to person, place, time, situation, Appropriate for age. Cardiovascular: Reports chest pain, from coughing Capillary refill < 3 seconds Patient's skin is warm and dry. Rhythm is regular. Respiratory: Airway is patent Respiratory effort is even, pursed lip, Respiratory pattern is tachypnea Breath sounds with wheezes. GI: No signs and/or symptoms were reported involving the gastrointestinal system. : No signs and/or symptoms were reported regarding the genitourinary system. EENT: No signs and/or symptoms were reported regarding the EENT system. Derm: Skin is intact, Skin is pink, warm \T\ dry. Skin temperature is warm. Musculoskeletal: Circulation, motion, and sensation intact. Capillary refill < 3 seconds. 04:15 Reassessment: Patient appears in no apparent distress at this time. Patient is alert, rr5 oriented x 3, equal unlabored respirations, skin warm/dry/pink. Patient states feeling better. Patient states symptoms have improved. 04:31 Reassessment: Patient and/or family updated on plan of care and expected duration. Pain ea level reassessed. Patient is alert, oriented x 3, equal unlabored respirations, skin warm/dry/pink. Discharge instruction given to patient, verbalized the understanding of instruction. Pt left ED ambulatory accompanied by family tolerating well Patient states feeling better. Patient states symptoms have improved. Vital Signs: 03:50 BP 140 / 108; Pulse 95; Resp 24; Temp 97.6; Pulse Ox 98% on R/A; Weight 54.43 kg; aa1 Height 5 ft. 5 in. (165.10 cm); Pain 5/10; 04:10 BP 119 / 78; Pulse 91; Resp 20; Pulse Ox 100% on Nebulizer Mask; rr5 03:50 Body Mass Index 19.97 (54.43 kg, 165.10 cm) aa1 ED Course: 03:41 Patient arrived in ED. jg7 03:46 Moshe Pride MD is Attending Physician. tw4 03:48 Lang Man RN is Primary Nurse. rr5 03:49 Triage completed. aa1 03:50 Arm band placed on right wrist. aa1 03:51 Patient has correct armband on for positive identification. Bed in low position. Call rr5 light in reach. Pulse ox on. NIBP on. 03:51 Initial Neb Treatment Given as ordered Patient was instructed and evaluated on rr5 procedure. 04:31 No provider procedures requiring assistance completed. Patient did not have IV access ea during this emergency room visit. Administered Medications: 03:55 Drug: Albuterol - atroVENT (3:1) (2.5 mg - 0.5 mg) 3 ml Route: Nebulizer; rr5 04:15 Follow up: Response: No adverse reaction; Marked relief of symptoms ea Outcome: 04:25 Discharge ordered by . tw4 04:32 Discharged to home ambulatory, with family. ea 04:32 Condition: stable 04:32 Discharge instructions given to patient, Instructed on discharge instructions, follow up and referral plans. medication usage, Demonstrated understanding of instructions, follow-up care, medications, Prescriptions given X 1. 04:32 Patient left the ED. ea Signatures: Susy Sorensen, RN RN aa1 Annie Cason RN RN Moshe Delgado MD MD tw4 Lang Mna RN RN rr5 Connie Lemus7
[2019-05-09 04:37] VITALS: TEMP 97.6
[2019-05-09 04:39] VITALS: BP 119/78; O2SAT 100
== END 2019-05-09 04:32 | disposition home or self-care (01) ==
LOC: ER 03:38
DX: J45.21 Mild intermittent asthma with (acute) exacerbation (principal)
CPT/HCPCS: 94640; 99284

== ENCOUNTER 2020-03-31 15:03 | Emergency (ER) | payer SELFPAY ==
--- OUTSIDE RECORDS SUMMARY | 2020-03-31 15:05 | XMS REPORT | Continuity of Care Document ---
:1995 Author Organization [facility] t Address [address] [place] [address] [address] [place] [address] Care Team Providers Name Role Phone Unavailable Unavailable Unavailable Problems Condition Condition Condition Status Onset Resolution Last Treating Co mments Source Name Details Category Date Date Treatment Clinician Date Costochond Costochond Problem Active [facility] chest [facility] Allergic All[facility] Problem [facility], [facility] - unspecifie unspecifie Me moria d d [facility] Asthma Asthma Problem [facility] Allergies, Adverse Reactions, Alerts Allergy Allergy Status Severity Reaction(s) Onset Inactive Treating Comm ents Source Name Type Date Date Clinician Pet Adverse Active shortness of [facility] Reaction breath [facility] Medications Ordered Filled Start Stop Current Ordering Indication Dosage Frequency Signature Comments Components Source Medication Medication Date Date Medication? Clinician (SIG) Name Name Symbicort Symbicort 2019- No [place] [address] [facility] 1-24 05-24 [facility] Albuterol Albuterol Yes [place] [address] [facility] Sulfate HFA Sulfate HFA needed [facility] Procedures This patient has no known procedures. Encounters Start End Encounter Admission Attending Care Care Encounter Source Date/Time Date/Time Type Type Clinicians Facility Department ID 2018-10-01 2018-10-01 Outpatient Nelson Griffith [id number] [facility] 10[facility]30:00 10:30:[facility] Family [facility] 2018-08-09 2018-08-09 Outpatient Nelson Griffith [id number] [facility] 11:30[facility]00 11:30:[address] [facility] 2018-07-12 2018-07-12 Outpatient Nelson Griffith [id number] [facility] 14:13:00 14:13:00 t [facility] ent Clinics 2018-07-08 2018-07-08 Outpatient Nelson Griffith [id number] [facility] [address] 09:30:00 09:30:[address] [facility] ent Clinics Results This patient has no known results.
[2020-03-31] MEDS ORDERED: IPRATROPIUM BROM 0.5MG/2.5ML ONE (15:40)
[2020-03-31] MEDS ORDERED: dexAMETHasone 10 MG/ML VIAL ONE (15:40)
[2020-03-31] MEDS ORDERED: NA CHLORIDE 0.9% 1,000 ML ONE (15:40)
[2020-03-31] MEDS ORDERED: ALBUTEROL 2.5 MG/3 ML NEB SOL ONE (15:40)
[2020-03-31] MEDS ORDERED: MAGNESIUM SULFATE 1 gm IVPB 1 GM/100 ML BAG IV ONE (15:41)
[2020-03-31] MEDS ORDERED: DIPHENHYDRAMINE 50 MG/ML VIAL ONE (15:56)
[2020-03-31] MEDS ORDERED: FAMOTIDINE 20 MG/2 ML VIAL IV ONE (15:56)
--- NOTE | 2020-03-31 16:40 | EDPHYS ---
Physician Documentation [facility] Name: Reggie Calvo Age: 25 yrs Sex: Male : 1995 Arrival Date: 03/31/2020 Time: 15:03 Bed 17 Private MD: ED Physician Kai Goodwin HPI: 03/31 15:52 This 25 yrs old Male presents to ER via Unassigned with complaints of Asthma snw Exacerbation. 15:52 The patient presents to the emergency department with wheezing, Current therapy: snw albuterol nebs, that began after exposure to animal dander, the patient was reported to have audible wheezing, chest congestion, chest tightness, intercostal retractions, non-productive cough, trouble breathing, Pre-hospital care: ran out of albuterol last pm. Onset: The symptoms/episode began/occurred suddenly, last night. Modifying factors: The symptoms are alleviated by nothing, the symptoms are aggravated by animal dander, dust. Associated signs and symptoms: The patient has no apparent associated signs or symptoms. Severity of symptoms: At their worst the symptoms were moderate severe in the emergency department the symptoms are unchanged. The patient has experienced similar episodes in the past, multiple times. The patient has not recently seen a physician. Historical: - Allergies: 15:15 No Known Allergies; rb1 - Home Meds: 15:15 None [Active]; rb1 - PMHx: 15:15 Asthma; rb1 - PSHx: 15:15 None; rb1 - Immunization history:: Adult Immunizations not up to date. - Social history:: Smoking status: Reported history of juuling and/or vaping. ROS: 15:51 Constitutional: Negative for fever, chills, and weight loss, Eyes: Negative for injury, snw pain, redness, and discharge, ENT: Negative for injury, pain, and discharge, Neck: Negative for injury, pain, and swelling, Cardiovascular: Negative for chest pain, palpitations, and edema, Abdomen/GI: Negative for abdominal pain, nausea, vomiting, diarrhea, and constipation, Back: Negative for injury and pain, : Negative for injury, bleeding, discharge, and swelling, MS/Extremity: Negative for injury and deformity, Skin: Negative for injury, rash, and discoloration, Neuro: Negative for headache, weakness, numbness, tingling, and seizure, Psych: Negative for depression, anxiety, suicide ideation, homicidal ideation, and hallucinations. 15:51 Respiratory: Positive for cough, shortness of breath, at rest. wheezing. Exam: 15:51 Constitutional: This is a well developed, well nourished patient who is awake, alert, snw and in no acute distress. Head/Face: Normocephalic, atraumatic. Eyes: Pupils equal round and reactive to light, extra-ocular motions intact. Lids and lashes normal. Conjunctiva and sclera are non-icteric and not injected. Cornea within normal limits. Periorbital areas with no swelling, redness, or edema. ENT: Nares patent. No nasal discharge, no septal abnormalities noted. Tympanic membranes are normal and external auditory canals are clear. Oropharynx with no redness, swelling, or masses, exudates, or evidence of obstruction, uvula midline. Mucous membranes moist. Neck: Trachea midline, no thyromegaly or masses palpated, and no cervical lymphadenopathy. Supple, full range of motion without nuchal rigidity, or vertebral point tenderness. No Meningismus. Chest/axilla: Normal chest wall appearance and motion. Nontender with no deformity. No lesions are appreciated. Cardiovascular: Regular rate and rhythm with a normal S1 and S2. No gallops, murmurs, or rubs. Normal PMI, no JVD. No pulse deficits. Abdomen/GI: Soft, non-tender, with normal bowel sounds. No distension or tympany. No guarding or rebound. No evidence of tenderness throughout. Back: No spinal tenderness. No costovertebral tenderness. Full range of motion. Skin: Warm, dry with normal turgor. Normal color with no rashes, no lesions, and no evidence of cellulitis. MS/ Extremity: Pulses equal, no cyanosis. Neurovascular intact. Full, normal range of motion. Neuro: Awake and alert, GCS 15, oriented to person, place, time, and situation. Cranial nerves II-XII grossly intact. Motor strength 5/5 in all extremities. Sensory grossly intact. Cerebellar exam normal. Normal gait. Psych: Awake, alert, with orientation to person, place and time. Behavior, mood, and affect are within normal limits. 15:51 Respiratory: moderate respiratory distress is noted, Respirations: accessory muscle usage, that is moderate, intercostal retractions, shallow respirations, tachypnea, Breath sounds: wheezing: inspiratory expiratory that is severe, is heard diffusely, Respiratory rate: 24 Vital Signs: 15:15 BP 117 / 62; Pulse 73; Resp 22; Pulse Ox 96% on R/A; Weight 54.43 kg; Height 5 ft. 2 rb1 in. (157.48 cm); Pain 3/10; 16:15 BP 120 / 65; Pulse 84; Resp 18; Pulse Ox 97% on R/A; rb1 16:45 BP 110 / 71; Pulse 85; Resp 17; Pulse Ox 98% on R/A; rb1 15:15 Body Mass Index 21.95 (54.43 kg, 157.48 cm) rb1 Procedures: 15:33 Peripheral line: by aseptic technique a peripheral line was placed in the right forearm snw vein. MDM: 15:16 Patient medically screened. snw 16:48 Data reviewed: vital signs, nurses notes. Data interpreted: Pulse oximetry: on room air snw is 96 %. Plan: will initiate a nebulizer treatment. Counseling: I had a detailed discussion with the patient and/or guardian regarding: the historical points, exam findings, and any diagnostic results supporting the discharge/admit diagnosis, the need for outpatient follow up, to return to the emergency department if symptoms worsen or persist or if there are any questions or concerns that arise at home. Response to treatment: the patient's symptoms have markedly improved after treatment. Special discussion: Based on the history and exam findings, there is no indication for further emergent testing or inpatient evaluation. I discussed with the patient/guardian the need to see the windows application administrator for further evaluation of the symptoms. I discussed with the patient/guardian the need to see the primary care provider for further evaluation of the symptoms. I discussed with the patient/guardian the need to see the clinical laboratory medical director for further evaluation of the symptoms. Administered Medications: 15:31 Drug: Albuterol - atroVENT (3:1) (2.5 mg - 0.5 mg) 3 ml Route: Nebulizer; rb1 16:04 Follow up: Response: No adverse reaction; Marked relief of symptoms rb1 15:33 Drug: Decadron - Dexamethasone 10 mg Route: IVP; Site: right forearm; rb1 15:50 Follow up: Response: No adverse reaction rb1 15:33 Drug: NS 0.9% 1000 ml Route: IV; Rate: 1 bolus; Site: right forearm; rb1 16:30 Follow up: IV Status: Completed infusion rb1 15:37 Drug: Benadryl 25 mg Route: IVP; Site: right forearm; rb1 15:50 Follow up: Response: No adverse reaction rb1 15:37 Drug: Pepcid 20 mg Route: IVP; Site: right forearm; rb1 15:50 Follow up: Response: No adverse reaction rb1 15:51 Drug: Magnesium Sulfate 1 grams Route: IVPB; Infused Over: 1 hrs; Site: right forearm; rb1 16:55 Follow up: Response: No adverse reaction; IV Status: Completed infusion rb1 Disposition: 17:20 Co-signature as Attending Physician, Kai Goodwin MD. rn Disposition: 03/31/20 16:40 Discharged to Home. Impression: Unspecified asthma with (acute) exacerbation, Allergy, unspecified. - Condition is Stable. - Discharge Instructions: Allergies, Adult, Asthma, Adult, How to Use an Inhaler, Form - Asthma Action Plan, Adult. - Prescriptions for Advair Diskus 500- 50 mcg/Dose Inhalation Disk with Device - inhale 1 puff by INHALATION route every 12 hours; 1 packet. Zyrtec 10 mg Oral Tablet - take 1 tablet by ORAL route once daily As needed; 20 tablet. Albuterol Sulfate 2.5 mg /3 mL (0.083 %) Inhalation Solution for Nebulization - inhale 1 unit by NEBULIZATION route every 8 hours As needed; 1 box. Prednisone 20 mg Oral Tablet - take 2 tablet by ORAL route once daily for 5 days; 10 tablet. Albuterol Sulfate 90 mcg/actuation - inhale 1-2 puff by INHALATION route every 4-6 hours; 1 Inhaler. - Work release form, Medication Reconciliation Form, Thank You Letter, Antibiotic Education, Prescription Opioid Use form. - Follow up: Private Physician; When: 2 - 3 days; Reason: Recheck today's complaints, Continuance of care, Re-evaluation by your physician. Follow up: Emergency Department; When: As needed; Reason: Trouble breathing, Worsening of condition. - Notes: Rinse mouth with water after inhaler use (especially Advair). Signatures: Brigette Andrew FNP-C FELTMAKER-Csnw Goodwin, Kai, MD MD rn Leger, [place], RN RN rb1 Corrections: (The following items were deleted from the chart) 17:00 16:40 03/31/2020 16:40 Discharged to Home. Impression: Unspecified asthma with (acute) rb1 exacerbation; Allergy, unspecified. Condition is Stable. Forms are Medication Reconciliation Form, Thank You Letter, Antibiotic Education, Prescription Opioid Use. Follow up: Private Physician; When: 2 - 3 days; Reason: Recheck today's complaints, Continuance of care, Re-evaluation by your physician. Follow up: Emergency Department; When: As needed; Reason: Trouble breathing, Worsening of condition. snw
--- NOTE | 2020-03-31 16:40 | ER ---
Nurse's Notes [facility] Name: Reggie Calvo Age: 25 yrs Sex: Male : 1995 Arrival Date: 03/31/2020 Time: 15:03 Bed 17 Private MD: Diagnosis: Unspecified asthma with (acute) exacerbation;Allergy, unspecified Presentation: 03/31 15:15 Chief complaint: Patient states: His has three cats and last night he started rb1 having difficulty breathing due to his asthma. 15:15 Coronavirus screen: Client denies travel out of the [place] in the last 14 days. Ebola rb1 Screen: Patient denies travel to an Ebola-affected area in the 21 days before illness onset. Initial Sepsis Screen: Does the patient meet any 2 criteria? No. Patient's initial sepsis screen is negative. Does the patient have a suspected source of infection? No. Patient's initial sepsis screen is negative. Risk Assessment: Do you want to hurt yourself or someone else? Patient reports no desire to harm self or others. Onset of symptoms was March 30, 2020. 15:15 Method Of Arrival: Ambulatory rb1 15:15 Acuity: LINDA 3 rb1 Triage Assessment: 15:15 General: Appears uncomfortable, Behavior is calm, cooperative, Denies fever. Pain: rb1 Complains of pain in back Pain currently is 3 out of 10 on a pain scale. Pain began last night. Pt. reports that his back hurts from trying to breathe. Neuro: Level of Consciousness is awake, alert, obeys commands, Oriented to person, place, time, situation. Cardiovascular: Capillary refill Patient's skin is warm and dry. Respiratory: Airway is patent Respiratory effort is even, labored, Respiratory pattern is regular, symmetrical. GI: No signs and/or symptoms were reported involving the gastrointestinal system. : No signs and/or symptoms were reported regarding the genitourinary system. Derm: Skin is pink, warm \T\ dry. Musculoskeletal: Range of motion: intact in all extremities. Historical: - Allergies: 15:15 No Known Allergies; rb1 - Home Meds: 15:15 None [Active]; rb1 - PMHx: 15:15 Asthma; rb1 - PSHx: 15:15 None; rb1 - Immunization history:: Adult Immunizations not up to date. - Social history:: Smoking status: Reported history of juuling and/or vaping. Screenin:15 Abuse screen: Denies threats or abuse. Nutritional screening: No deficits noted. rb1 Tuberculosis screening: No symptoms or risk factors identified. Fall Risk None identified. Assessment: 15:15 General: See triage assessment. rb1 16:00 Reassessment: Patient appears in no apparent distress at this time. Patient and/or rb1 family updated on plan of care and expected duration. Pain level reassessed. Patient is alert, oriented x 3, equal unlabored respirations, skin warm/dry/pink. Patient states symptoms have improved. 16:48 Reassessment: Patient appears in no apparent distress at this time. Patient states rb1 feeling better. Patient states symptoms have improved. Vital Signs: 15:15 BP 117 / 62; Pulse 73; Resp 22; Pulse Ox 96% on R/A; Weight 54.43 kg; Height 5 ft. 2 rb1 in. (157.48 cm); Pain 3/10; 16:15 BP 120 / 65; Pulse 84; Resp 18; Pulse Ox 97% on R/A; rb1 16:45 BP 110 / 71; Pulse 85; Resp 17; Pulse Ox 98% on R/A; rb1 15:15 Body Mass Index 21.95 (54.43 kg, 157.48 cm) rb1 ED Course: 15:03 Patient arrived in ED. as 15:11 Brigette Andrew FNP-Guera is PHCP. snw 15:12 Kai Goodwin MD is Attending Physician. snw 15:15 Arm band placed on right wrist. rb1 15:15 Patient has correct armband on for positive identification. Bed in low position. Call rb1 light in reach. Side rails up X 1. Pulse ox on. NIBP on. 15:20 Inserted saline lock: 20 gauge in right forearm, using aseptic technique. ,using rb1 aseptic technique. IV started GABE Machuca Blood collected. 15:24 Lourdes Leger, RN is Primary Nurse. rb1 15:55 Triage completed. rb1 16:59 No provider procedures requiring assistance completed. IV discontinued, intact, rb1 bleeding controlled, No redness/swelling at site. Pressure dressing applied. Administered Medications: 15:31 Drug: Albuterol - atroVENT (3:1) (2.5 mg - 0.5 mg) 3 ml Route: Nebulizer; rb1 16:04 Follow up: Response: No adverse reaction; Marked relief of symptoms rb1 15:33 Drug: Decadron - Dexamethasone 10 mg Route: IVP; Site: right forearm; rb1 15:50 Follow up: Response: No adverse reaction rb1 15:33 Drug: NS 0.9% 1000 ml Route: IV; Rate: 1 bolus; Site: right forearm; rb1 16:30 Follow up: IV Status: Completed infusion rb1 15:37 Drug: Benadryl 25 mg Route: IVP; Site: right forearm; rb1 15:50 Follow up: Response: No adverse reaction rb1 15:37 Drug: Pepcid 20 mg Route: IVP; Site: right forearm; rb1 15:50 Follow up: Response: No adverse reaction rb1 15:51 Drug: Magnesium Sulfate 1 grams Route: IVPB; Infused Over: 1 hrs; Site: right forearm; rb1 16:55 Follow up: Response: No adverse reaction; IV Status: Completed infusion rb1 Outcome: 16:40 Discharge ordered by MD. arechiga 16:59 Discharged to home ambulatory, with family. rb1 16:59 Condition: stable 16:59 Discharge instructions given to patient, Instructed on discharge instructions, follow up and referral plans. medication usage, Demonstrated understanding of instructions, follow-up care, medications, Prescriptions given X x 5 17:00 Patient left the ED. rb1 Signatures: Brigette Andrew FNP-C FNP-Geno Ramos Rebecca, RN RN rb1
[2020-03-31 17:10] VITALS: BP 110/71; O2SAT 98
== END 2020-03-31 17:00 | disposition home or self-care (01) ==
LOC: ER 15:03
DX: J45.901 Unspecified asthma with (acute) exacerbation (principal); T78.40XA Allergy, unspecified, initial encounter
CPT/HCPCS: 96365; 96375; 99284; J1100; J1200; J3475; J7030

== ENCOUNTER 2020-12-10 18:49 | Emergency (ER) | payer SELFPAY ==
--- OUTSIDE RECORDS SUMMARY | 2020-12-10 18:51 | XMS REPORT | Continuity of Care Document ---
:[address] [facility] t Address [address] [place] [address] [address]. [address] [place] [address] Care Team Providers Name Role Phone Unavailable Unavailable Unavailable Problems Condition Condition Condition Status Onset Resolution Last Treating Co mments Source Name Details Category Date Date Treatment Clinician Date Costochond Costochond Problem Active [facility] chest ral chest [facility] - pain pain [facility] Allergic Allergic Problem [facility] - unspecifie unspecifie Me moria d d [facility] Asthma Asthma Problem [facility] Allergies, Adverse Reactions, Alerts Allergy Allergy Status Severity Reaction(s) Onset Inactive Treating Comm ents Source Name Type Date Date Clinician Pet Adverse Active shortness of [facility] Reaction [facility] Medications Ordered Filled Start Stop Current Ordering Indication Dosage Frequency Signature Comments Components Source Medication Medication Date Date Medication? Clinician (SIG) Name Name Symbicort Symbicort 2019- No Cydney Sumner [address] 1-24 05-24 [facility] - 00[facility] 00[facility]00 [facility] Albuterol Albuterol Yes Cydney Sumner [address] Sulfate HFA Sulfate HFA needed [facility] Procedures This patient has no known procedures. Encounters Start End Encounter Admission Attending Care Care Encounter Source Date/Time Date/Time Type Type Clinicians Facility Department ID 2018-10-01 2018-10-01 Outpatient Nelson Griffith [id number] [address] 10:30:00 10:30:00 [facility] 2018-08-09 2018-08-09 Outpatient Nelson Griffith [id number] 11:30:00 11:30:00 t [facility] 2018-07-12 2018-07-12 Outpatient Nelson Griffith [id number] 14:13:00 14:13:00 t [facility] 2018-07-08 2018-07-08 Outpatient Nelson Griffith [id number] [facility] [address] 09:30:00 09:30:00 [facility] ent Clinics Results This patient has no known results.
[2020-12-10 20:36] LABS: Absolute Lymphocytes (CBC) 2.1 K/uL (0.7-4.9); Basophils % 0.6 % (0-1.3); Hematocrit 43.1 % (39.6-49.0); Lymphocytes % 21.6 % (15.3-44.8); MPV 9.2 fL (7.6-11.3); RBC Red Blood Cell Count 4.71 M/uL (4.33-5.43)
[2020-12-10 20:49] LABS: ALT/SGPT 28 U/L (12-78); AST/SGOT 20 U/L (15-37); Albumin 4.6 g/dL (3.4-5.0); Alkaline Phosphatase 46 U/L (45-117); BUN Blood Urea Nitrogen 18 mg/dL (7-18); Bicarbonate 26 mmol/L (21-32); Bilirubin Direct 0.2 mg/dL (0-0.2); Bilirubin Total 0.4 mg/dL (0.2-1.0); Glucose Level 90 mg/dL (74-106); Magnesium 2.3 mg/dL (1.8-2.4); NT PRO-BNP 15 pg/mL (<125); Potassium 4.1 mmol/L (3.5-5.1); Protein, Total 8.1 g/dL (6.4-8.2); Sodium Level 140 mmol/L (136-145); Troponin (Emerg Dept Use Only) < 0.02 ng/mL (0.0-0.045)
[2020-12-10 21:00] LABS: Protime INR 1.08
--- NOTE | 2020-12-10 21:05 | RAD REPORT ---
EXAM DESCRIPTION: CT - Abdomen Pelvis W Contrast - 12/10/2020 8:39 pm CLINICAL HISTORY: LUQ pain COMPARISON: No comparisons TECHNIQUE: Biphasic, helical CT imaging of the abdomen and pelvis was performed following 100 ml non -ionic IV contrast. No oral contrast was given. All CT scans are performed using dose optimization technique as appropriate and may include automated exposure control or mA/KV adjustment according to patient size. FINDINGS: No suspicious findings in the lung bases. The liver, spleen, and pancreas show no suspicious findings. Gallbladder and biliary tree are also wi thout suspicious finding. Symmetric renal function is seen with no hydronephrosis or suspicious renal mass. No pyelonephritis o r acute parenchymal process. No bladder abnormalities. No adrenal abnormalities. No dilated bowel loops or bowel wall thickening. No free air, free fluid or inflammatory stranding. No hernia, mass or bulky lymphadenopathy. No suspicious bony findings. IMPRESSION: Contrast enhanced CT abdomen and pelvis showing no significant or suspicious finding.
--- NOTE | 2020-12-10 21:11 | RAD REPORT ---
EXAM DESCRIPTION: RAD - Chest Single View - 12/10/2020 8:50 pm CLINICAL HISTORY: PALPITATIONS COMPARISON: Portable April 2019 TECHNIQUE: AP portable chest image was obtained 12/10/2020 8:50 pm . FINDINGS: Lungs are clear. Heart and vasculature are normal. No measurable pleural effusion and no p neumothorax. No acute bony abnormality seen. No acute aortic findings suspected. IMPRESSION: No acute cardiopulmonary process.
[2020-12-10 22:04] LABS: Urine Blood Negative (Negative); Urine Glucose Negative (Negative); Urine Protein Negative (Negative); Urine Specific Gravity 1.015 (1.005-1.030)
[2020-12-10 22:48] LABS: Barbiturates NEGATIVE (NEGATIVE); Benzodiazepines NEGATIVE (NEGATIVE); Cocaine NEGATIVE (NEGATIVE); METHAMPHETAM NEGATIVE (NEGATIVE); Methadone NEGATIVE (NEGATIVE); Opiates NEGATIVE (NEGATIVE); Phencyclidine NEGATIVE (NEGATIVE); THC Cannibis POSITIVE (NEGATIVE)
--- NOTE | 2020-12-10 22:56 | ER ---
Nurse's Notes [facility] [place] [place] Name: Reggie Calvo Age: 25 yrs Sex: Male : 1995 Arrival Date: 12/10/2020 Time: 18:51 Bed 19 Private MD: Diagnosis: Palpitations;Abdominal pain, unspecified; Cannabis abuse Presentation: 12/10 19:02 Chief complaint: Patient states: "I am having some upper left sided stomach pain that ss feels heavy and like an intermittent squeezing sensation. I am having some nausea as well. it started about a week ago and has been getting worse.". Coronavirus screen: At this time, the client does not indicate any symptoms associated with coronavirus-19. Ebola Screen: Patient negative for fever greater than or equal to 101.5 degrees Fahrenheit, and additional compatible Ebola Virus Disease symptoms. Initial Sepsis Screen: Does the patient meet any 2 criteria? No. Patient's initial sepsis screen is negative. Does the patient have a suspected source of infection? No. Patient's initial sepsis screen is negative. Risk Assessment: Do you want to hurt yourself or someone else? Patient reports no desire to harm self or others. Onset of symptoms was December 03, 2020. 19:02 Method Of Arrival: Ambulatory ss 19:02 Acuity: LINDA 3 ss Historical: - Allergies: 19:06 cats and dogs; ss - Home Meds: 19:06 Albuterol Inhl [Active]; ss - PMHx: 19:06 Asthma; ss - PSHx: 19:06 None; ss - Immunization history:: Adult Immunizations up to date. - Social history:: Smoking status: Reported history of juuling and/or vaping. Patient uses street drugs, marijuana. Screenin:10 Abuse screen: Denies threats or abuse. Nutritional screening: No deficits noted. jb4 Tuberculosis screening: No symptoms or risk factors identified. Fall Risk None identified. Assessment: 19:35 General: Appears in no apparent distress. uncomfortable, Behavior is cooperative, jb4 anxious. Pain: Complains of pain in diaphragm Pain radiates to upper chest Pain currently is 8 out of 10 on a pain scale. Neuro: Level of Consciousness is awake, alert, obeys commands, Oriented to person, place, time, situation. Cardiovascular: Patient's skin is warm and dry. Respiratory: Airway is patent Respiratory effort is even, unlabored, Respiratory pattern is regular, symmetrical. GI: No signs and/or symptoms were reported involving the gastrointestinal system. : No signs and/or symptoms were reported regarding the genitourinary system. EENT: No signs and/or symptoms were reported regarding the EENT system. Derm: Skin is intact, Skin is pink, warm \\T\\ dry. Musculoskeletal: Circulation, motion, and sensation intact. Range of motion: intact in all extremities. 21:00 Reassessment: Patient appears in no apparent distress at this time. Patient and/or jb4 family updated on plan of care and expected duration. Pain level reassessed. Patient is alert, oriented x 3, equal unlabored respirations, skin warm/dry/pink. 22:00 Reassessment: Patient appears in no apparent distress at this time. Patient and/or jb4 family updated on plan of care and expected duration. Pain level reassessed. Patient is alert, oriented x 3, equal unlabored respirations, skin warm/dry/pink. 23:00 Reassessment: Patient appears in no apparent distress at this time. Patient and/or jb4 family updated on plan of care and expected duration. Pain level reassessed. Patient is alert, oriented x 3, equal unlabored respirations, skin warm/dry/pink. Vital Signs: 19:06 BP 130 / 84; Pulse 88; Resp 17 S; Temp 98.5(TE); Pulse Ox 99% on R/A; Weight 54.43 kg ss (R); Height 5 ft. 5 in. (165.10 cm) (R); Pain 8/10; 21:30 BP 120 / 75; Pulse 54; Resp 16; Pulse Ox 98% on R/A; jb4 19:06 Body Mass Index 19.97 (54.43 kg, 165.10 cm) ED Course: 18:51 Patient arrived in ED. ds1 19:04 Triage completed. ss 19:07 Arm band placed on. ss 19:34 Mike Montoya NP is PHCP. pm1 19:34 Clayton Nuno MD is Attending Physician. pm1 19:40 Patient has correct armband on for positive identification. Bed in low position. Call jb4 light in reach. Side rails up X 1. Pulse ox on. NIBP on. 19:50 Initial lab(s) drawn, by me. Inserted saline lock: 18 gauge in right forearm, using jb4 aseptic technique. Blood collected. 20:39 CT Abd/Pelvis - IV Contrast Only In Process Unspecified. EDMS 20:50 XRAY Chest (1 view) In Process Unspecified. EDMS 21:10 Yaya Bernal, RN is Primary Nurse. jb4 23:21 No provider procedures requiring assistance completed. Patient did not have IV access jb4 during this emergency room visit. Administered Medications: No medications were administered Outcome: 22:56 Discharge ordered by MD. pm1 23:22 Discharged to home ambulatory. jb4 23:22 Condition: stable 23:22 Discharge instructions given to family, Instructed on discharge instructions, follow up and referral plans. Demonstrated understanding of instructions, follow-up care. 23:22 Patient left the ED. jb4 Signatures: Dispatcher [employer] [facility] Edith Kohli ds1 Kate Velasquez RN RN ss Mike Montoya, MEAT CARVER MEAT CARVER pm1 Yaya Bernal, RN RN jb4 Corrections: (The following items were deleted from the chart) 23:22 21:10 Patient has correct armband on for positive identification. Bed in low position. jb4 Call light in reach. Side rails up X 1. jb4 23:22 21:10 Pulse ox on. NIBP on. jb4 jb4
--- NOTE | 2020-12-10 22:56 | EDPHYS ---
Physician Documentation [facility] Name: Reggie Calvo Age: 25 yrs Sex: Male : 1995 Arrival Date: 12/10/2020 Time: 18:51 Bed 19 Private MD: ED Physician Clayton Nuno Historical: - Allergies: 12/10 19:06 cats and dogs; ss - Home Meds: 19:06 Albuterol Inhl [Active]; ss - PMHx: 19:06 Asthma; ss - PSHx: 19:06 None; ss - Immunization history:: Adult Immunizations up to date. - Social history:: Smoking status: Reported history of juuling and/or vaping. Patient uses street drugs, marijuana. Vital Signs: 19:06 BP 130 / 84; Pulse 88; Resp 17 S; Temp 98.5(TE); Pulse Ox 99% on R/A; Weight 54.43 kg ss (R); Height 5 ft. 5 in. (165.10 cm) (R); Pain 8/10; 21:30 BP 120 / 75; Pulse 54; Resp 16; Pulse Ox 98% on R/A; jb4 19:06 Body Mass Index 19.97 (54.43 kg, 165.10 cm) ss MDM: 19:34 Patient medically screened. pm1 22:54 Data reviewed: vital signs. Data interpreted: Pulse oximetry: on room air is 98 %. pm1 Interpretation: normal. Counseling: I had a detailed discussion with the patient and/or guardian regarding: the historical points, exam findings, and any diagnostic results supporting the discharge/admit diagnosis, lab results, radiology results, the need for outpatient follow up, to return to the emergency department if symptoms worsen or persist or if there are any questions or concerns that arise at home. 12/10 19:40 Order name: Basic Metabolic Panel; Complete Time: 21:34 pm1 12/10 19:40 Order name: CBC with Diff; Complete Time: 21:34 pm1 12/10 19:40 Order name: LFT's; Complete Time: 21:34 pm1 12/10 19:40 Order name: Magnesium; Complete Time: 21:34 pm1 12/10 19:40 Order name: NT PRO-BNP; Complete Time: 21:34 pm1 12/10 19:40 Order name: PT-INR; Complete Time: 21:34 pm12/10 19:40 Order name: Troponin (emerg Dept Use Only); Complete Time: 21:34 pm12/10 19:40 Order name: XRAY Chest (1 view); Complete Time: 21:34 pm12/10 19:40 Order name: EKG; Complete Time: 19:41 pm12/10 19:40 Order name: Cardiac monitoring; Complete Time: 19:50 pm1 12/10 19:40 Order name: EKG - Nurse/Tech; Complete Time: 19:50 pm12/10 19:40 Order name: UDS; Complete Time: 22:54 pm1 12/10 19:41 Order name: CT Abd/Pelvis - IV Contrast Only; Complete Time: 21:34 pm12/10 22:03 Order name: Urine Dipstick-Ancillary; Complete Time: 22:54 EDMS 12/10 19:40 Order name: IV Saline Lock; Complete Time: 21:10 pm12/10 19:40 Order name: Labs collected and sent; Complete Time: 21:10 pm12/10 19:40 Order name: O2 Per Protocol; Complete Time: 19:51 pm12/10 19:40 Order name: O2 Sat Monitoring; Complete Time: 19:51 pm12/10 19:40 Order name: Urine Dipstick-Ancillary (obtain specimen); Complete Time: 22:19 pm1 Administered Medications: No medications were administered Disposition: 12/10/20 22:56 Discharged to Home. Impression: Palpitations, Abdominal pain, unspecified, Cannabis abuse. - Condition is Stable. - Discharge Instructions: Abdominal Pain, Adult, Cannabis Use Disorder, Palpitations. - Medication Reconciliation Form, Thank You Letter, Antibiotic Education, Prescription Opioid Use form. - Follow up: Emergency Department; When: As needed; Reason: Worsening of condition. Follow up: Private Physician; When: 2 - 3 days; Reason: Recheck today's complaints, Continuance of care, Re-evaluation by your physician. - Problem is new. - Symptoms have improved. Addendum: 12/11/2020 08:13 Co-signature as Attending Physician, Clayton lopez kl 14:33 Addendum: HPI: This 25 yo Male presents to the ER via ambulatory with complaints of p m1 palpitations. The patient presents to the ER with palpations and abdominal pain. Context: the symptoms occur at rest. Onset: yesterday. Duration: the patient reports multiple episodes. Modifying factors: the symptoms are aggravated by nothing. The symptoms are alleviated by nothing. Associated signs and symptoms: the patient has no apparent associated signs and symptoms. Pertinet negatives: No chest pain. No shortness of breath, n/v/d. Patient has experienced similar symptoms about 1 year ago. Has not seen a physician recently. 14:41 Addendum: ROS: Constitutional: negative for fever, chills, and weight loss. p m1 Cardiovascular: positive for palpitations. negative for chest pain and edema. Respiratory: Negative for shortness of breath, cough. Back: Negative for injury and pain, : Negative for injury and deformity. Skin: negative for injury, rash, and discoloration. Neuro: negative for headache, weakness, numbness, and tingling. Abdomen/GI: positive for abdominal pain in left upper quadrant and rib cage. Negative for nausea, vomiting, and diarrhea. All other systems are negative. 14:42 Addendum: Exam: Constitutional: This is a well developed, well nourished patient who is p m1 awake, alert, and in acute distress. Head/Face: Normocephalic, atraumatic. Eyes: Exam is negative for acute changes, ENT: Mouth: Lips: normal, oral mucosa: normal pink, intact, moist. Cardiovascular: RRR, no pulse deficits. Respiratory: CTA bilaterally. No respiratory distress. Back: No spinal tenderness. No costovertebral tenderness. FROM. Skin: Warm, dry with normal turgor. Normal color with no rashes, no lesions, no evidence of cellulitis. MS/Extremity: Pulses equal, no cyanosis. Neurovascular intact, FROM. Abdomen: Mild tenderness present to LUQ and anterior left lower rib cage. Soft in all quadrants. Signatures: Dispatcher [employer] EDMS Clayton Nuno MD MD pkl Smirch, Shelby, RN RN ss Mike Montoya, MAN MODERN LANGUAGES PROFESSOR pm1 Yaya Bernal RN RN jb4 Corrections: (The following items were deleted from the chart) 12/10 23:22 22:56 12/10/2020 22:56 Discharged to Home. Impression: Palpitations; Unspecified jb4 abdominal pain; Cannabis abuse. Condition is Stable. Forms are Medication Reconciliation Form, Thank You Letter, Antibiotic Education, Prescription Opioid Use. Follow up: Emergency Department; When: As needed; Reason: Worsening of condition. Follow up: Private Physician; When: 2 - 3 days; Reason: Recheck today's complaints, Continuance of care, Re-evaluation by your physician. Problem is new. Symptoms have improved. pm1
[2020-12-10 23:40] VITALS: TEMP 98.5
[2020-12-10 23:41] VITALS: BP 120/75; O2SAT 98
--- NOTE | 2020-12-11 12:57 | EKG ---
Test Date: 2020-12-10 Test Time: 19:49:08 Mine Engineer: LUZ MARINA MEASUREMENT RESULTS: Intervals: Rate: 60 HI: 156 QRSD: 98 QT: 392 QTc: 392 Baring: P: 86 HI: 156 QRS: 88 T: 79 INTERPRETIVE STATEMENTS: Normal sinus rhythm with sinus arrhythmia Normal ECG Compared to ECG 04/29/2019 05:14:48 Atrial abnormality no longer present Incomplete right bundle-branch block no longer present Electronically Signed On 12-11-20 12:53:55 CDT by Ishaan Caal
== END 2020-12-10 23:22 | disposition home or self-care (01) ==
LOC: ER 18:49
DX: F12.10 Cannabis abuse, uncomplicated (principal); R10.12 Left upper quadrant pain; J45.909 Unspecified asthma, uncomplicated
CPT/HCPCS: 36415; 71045; 74177; 80048; 80076; 80307; 81003; 83735; 83880; 84484; 85025; 85610; 93005; 99284; Q9967

== ENCOUNTER 2021-04-29 21:07 | Emergency (ER) | payer SELFPAY ==
--- OUTSIDE RECORDS SUMMARY | 2021-04-29 21:11 | XMS REPORT | Continuity of Care Document ---
:1995 Author Organization [facility] t Address [address] [place] [address] Dr. [address]z [address] [place] [address] Care Team Providers Name Role Phone Unavailable Unavailable Unavailable Problems Condition Condition Condition Status Onset Resolution Last Treating Co mments Source Name Details Category Date Date Treatment Clinician Date Costochond Costochond Problem Active [facility] ral chest ral chest [facility] - pain pain [facility] Allergic Allergic Problem [facility] - unspecifie unspecifie Me moria d d l [facility] Asthma Asthma Problem [facility] Allergies, Adverse Reactions, Alerts Allergy Allergy Status Severity Reaction(s) Onset Inactive Treating Comm ents Source Name Type Date Date Clinician Pet Adverse Active shortness of [facility] Reaction [facility] Medications Ordered Filled Start Stop Current Ordering Indication Dosage Frequency Signature Comments Components Source Medication Medication Date Date Medication? Clinician (SIG) Name Name Symbicort Symbicort 2019- No Cydney Dallas [address] 1-24 05-24 [facility] 00[facility]00 [facility] Albuterol Albuterol Yes Cydney Dallas [address] [address] Sulfate HFA Sulfate HFA needed [facility] Procedures This patient has no known procedures. Encounters Start End Encounter Admission Attending Care Care Encounter Source Date/Time Date/Time Type Type Clinicians Facility Department ID 2018-10-01 2018-10-01 Outpatient Nelson Griffith [id number] [facility] 10:30:00 10:30:00 [facility] Family [facility] 2018-08-09 2018-08-09 Outpatient Nelson Griffith [id number] [facility] 11:30:00 11:30:00 t [facility] 2018-07-12 2018-07-12 Outpatient Nelson Griffith [id number] [facility] 14:13:00 14:13:00 t [facility] 2018-07-08 2018-07-08 Outpatient Nelson Griffith [id number] [facility] St 09:30:00 09:30:00 [facility] Clinics Results This patient has no known results.
[2021-04-29] MEDS ORDERED: FAMOTIDINE 20 MG/2 ML VIAL IV ONE (21:51)
[2021-04-29] MEDS ORDERED: ONDANSETRON 4 MG/2 ML VIAL ONE (21:51)
[2021-04-29] MEDS ORDERED: NA CHLORIDE 0.9% 1,000 ML ONE (21:51)
[2021-04-29] MEDS ORDERED: MORPHINE 2 MG/ML SYR ONE (21:51)
[2021-04-29 22:08] LABS: Absolute Lymphocytes (CBC) 1.8 K/uL (0.7-4.9); Hematocrit 45.9 % (39.6-49.0); Lymphocytes % 26.9 % (15.3-44.8); MPV 8.6 fL (7.6-11.3); RBC Red Blood Cell Count 4.98 M/uL (4.33-5.43)
[2021-04-29 22:25] LABS: ALT/SGPT 31 U/L (12-78); AST/SGOT 22 U/L (15-37); Albumin 4.7 g/dL (3.4-5.0); Alkaline Phosphatase 51 U/L (45-117); BUN Blood Urea Nitrogen 12 mg/dL (7-18); Bicarbonate 26 mmol/L (21-32); Bilirubin Direct 0.2 mg/dL (0-0.2); Bilirubin Total 0.6 mg/dL (0.2-1.0); Glucose Level 116 mg/dL (74-106); Lipase 132 U/L (73-393); Protein, Total 8.4 g/dL (6.4-8.2); Sodium Level 141 mmol/L (136-145)
--- NOTE | 2021-04-29 23:47 | EDPHYS ---
Physician Documentation [facility] Name: Reggie Calvo Age: 26 yrs Sex: Male : 1995 Arrival Date: 04/29/2021 Time: 21:11 Bed 12 Private MD: OMA Physician David Reyes HPI: 04/29 21:47 This 26 yrs old Male presents to ER via Ambulatory with complaints of barry Abdominal Pain - LUQ. 21:47 The patient presents with abdominal pain in the epigastric area, in the upper abdomen. barry Onset: The symptoms/episode began/occurred today. The symptoms do not radiate. Associated signs and symptoms: none. The symptoms are described as crampy, stabbing. Modifying factors: The symptoms are alleviated by nothing, the symptoms are aggravated by spicy food. Severity of pain: At its worst the pain was mild moderate in the emergency department the pain is unchanged. The patient has experienced similar episodes in the past, several times. Historical: - Allergies: 21:20 cats and dogs; df1 - Home Meds: 21:20 Albuterol Inhl [Active]; ProAir HFA inhalation [Active]; df1 - PMHx: 21:20 Asthma; df1 - PSHx: 21:20 None; df1 - Immunization history:: Adult Immunizations not up to date, Client reports having NOT received the Covid vaccine. - Social history:: Smoking status: Reported history of juuling and/or vaping. Patient uses alcohol, only on a social basis. street drugs, marijuana. - Family history:: not pertinent. ROS: 21:47 Constitutional: Negative for fever, chills, and weight loss, Eyes: Negative for injury, barry pain, redness, and discharge, ENT: Negative for injury, pain, and discharge, Neck: Negative for injury, pain, and swelling, Cardiovascular: Negative for chest pain, palpitations, and edema, Respiratory: Negative for shortness of breath, cough, wheezing, and pleuritic chest pain, Back: Negative for injury and pain, : Negative for injury, bleeding, discharge, and swelling, MS/Extremity: Negative for injury and deformity, Skin: Negative for injury, rash, and discoloration, Neuro: Negative for headache, weakness, numbness, tingling, and seizure, Psych: Negative for depression, anxiety, suicide ideation, homicidal ideation, and hallucinations, Allergy/Immunology: Negative for hives, rash, and allergies, Endocrine: Negative for neck swelling, polydipsia, polyuria, polyphagia, and marked weight changes, Hematologic/Lymphatic: Negative for swollen nodes, abnormal bleeding, and unusual bruising. 21:47 Abdomen/GI: Positive for abdominal pain, of the left upper quadrant and left lower quadrant. Exam: 21:47 Constitutional: This is a well developed, well nourished patient who is awake, alert, barry and in no acute distress. Head/Face: Normocephalic, atraumatic. Eyes: Pupils equal round and reactive to light, extra-ocular motions intact. Lids and lashes normal. Conjunctiva and sclera are non-icteric and not injected. Cornea within normal limits. Periorbital areas with no swelling, redness, or edema. ENT: Nares patent. No nasal discharge, no septal abnormalities noted. Tympanic membranes are normal and external auditory canals are clear. Oropharynx with no redness, swelling, or masses, exudates, or evidence of obstruction, uvula midline. Mucous membranes moist. Neck: Trachea midline, no thyromegaly or masses palpated, and no cervical lymphadenopathy. Supple, full range of motion without nuchal rigidity, or vertebral point tenderness. No Meningismus. Chest/axilla: Normal chest wall appearance and motion. Nontender with no deformity. No lesions are appreciated. Cardiovascular: Regular rate and rhythm with a normal S1 and S2. No gallops, murmurs, or rubs. Normal PMI, no JVD. No pulse deficits. Respiratory: Lungs have equal breath sounds bilaterally, clear to auscultation and percussion. No rales, rhonchi or wheezes noted. No increased work of breathing, no retractions or nasal flaring. Back: No spinal tenderness. No costovertebral tenderness. Full range of motion. Male : Normal genitalia with no discharge or lesions. Skin: Warm, dry with normal turgor. Normal color with no rashes, no lesions, and no evidence of cellulitis. MS/ Extremity: Pulses equal, no cyanosis. Neurovascular intact. Full, normal range of motion. Neuro: Awake and alert, GCS 15, oriented to person, place, time, and situation. Cranial nerves II-XII grossly intact. Motor strength 5/5 in all extremities. Sensory grossly intact. Cerebellar exam normal. Normal gait. Psych: Awake, alert, with orientation to person, place and time. Behavior, mood, and affect are within normal limits. 21:47 Abdomen/GI: Inspection: abdomen appears normal, Bowel sounds: normal, Palpation: moderate abdominal tenderness, in the left upper quadrant. Vital Signs: 21:18 BP 116 / 88; Pulse 85; Resp 18; Temp 98.5; Pulse Ox 100% on R/A; Weight 54.43 kg; df1 Height 5 ft. 5 in. (165.10 cm); Pain 0/10; 21:26 BP 121 / 92; Pulse 89; Resp 18; Pulse Ox 100% on R/A; Pain 5/10; ld1 22:58 BP 118 / 90; Pulse 87; Resp 18; Pulse Ox 100% on R/A; ld1 21:18 Body Mass Index 19.97 (54.43 kg, 165.10 cm) df1 MDM: 21:34 Patient medically screened. [facility] 04/29 21:45 Order name: Basic Metabolic Panel; Complete Time: 22:27 [facility] 04/29 21:45 Order name: CBC with Diff; Complete Time: 22:27 [facility] 04/29 21:45 Order name: Hepatic Function; Complete Time: 22:27 [facility] 04/29 21:45 Order name: Lipase; Complete Time: 22:27 [facility] 04/29 21:45 Order name: CT Abd/Pelvis - IV Contrast Only [facility] 04/29 21:45 Order name: IV Saline Lock; Complete Time: 21:48 [facility] 04/29 21:45 Order name: Labs collected and sent; Complete Time: 21:48 [facility] Administered Medications: 21:59 Drug: NS 0.9% 1000 ml Route: IV; Rate: 1 bolus; Site: right antecubital; ld1 21:59 Drug: Pepcid (famotidine) 20 mg Route: IVP; Site: right antecubital; ld1 21:59 Follow up: Response: No adverse reaction ld1 21:59 Drug: morphine 2 mg Route: IVP; Site: right antecubital; ld1 21:59 Follow up: Response: No adverse reaction ld1 21:59 Drug: Zofran (Ondansetron) 4 mg Route: IVP; Site: right antecubital; ld1 21:59 Follow up: Response: No adverse reaction ld1 Disposition Summary: 04/29/21 23:46 Discharge Ordered Location: Home [facility] Problem: new [facility] Symptoms: have improved [facility] Condition: Stable [facility] Diagnosis - Abdominal tenderness barry - Acute gastritis barry Followup: barry - With: Private Physician - When: 2 - 3 days - Reason: Recheck today's complaints, Continuance of care, Re-evaluation by your physician Discharge Instructions: - Discharge Summary Sheet barry - Abdominal Pain, Adult barry - Abdominal Pain, Adult, [id number] barry - Gastritis, Adult barry - Gastritis, Adult, [id number] [facility] Forms: - Medication Reconciliation Form [facility] - Thank You Letter [facility] - Antibiotic Education [facility] - Prescription Opioid Use [facility] Prescriptions: - Pepcid 20 mg Oral Tablet - take 1 tablet by ORAL route every 12 hours for 10 days; 20 tablet; Refills: 0, [facility] Product Selection Permitted - Zofran 4 mg Oral Tablet - take 1 tablet by ORAL route every 12 hours As needed; 14 tablet; Refills: 0, [facility] Product Selection Permitted - dicyclomine 20 mg Oral Tablet - take 1 tablet by ORAL route 4 times per day; 28 tablet; Refills: 0, Product [facility] Selection Permitted Signatures: Dispatcher [employer] David Patel MD MD cha Dibbern, Lauren RN RN ld1 Criss Rg df1
--- NOTE | 2021-04-29 23:47 | ER ---
Nurse's Notes [facility] Name: Reggie Calvo Age: 26 yrs Sex: Male : 1995 Arrival Date: 04/29/2021 Time: 21:11 Bed 12 Private MD: Diagnosis: Abdominal tenderness;Acute gastritis Presentation: 04/29 21:18 Chief complaint: Patient states: pt states abd spasms/pulsating x 2 months. Coronavirus df1 screen: Vaccine status: Patient reports being unvaccinated. Client denies travel out of the [place] in the last 14 days. At this time, the client does not indicate any symptoms associated with coronavirus-19. Ebola Screen: Patient negative for fever greater than or equal to 101.5 degrees Fahrenheit, and additional compatible Ebola Virus Disease symptoms Patient denies exposure to infectious person. Patient denies travel to an Ebola-affected area in the 21 days before illness onset. Initial Sepsis Screen: Does the patient meet any 2 criteria? No. Patient's initial sepsis screen is negative. Does the patient have a suspected source of infection? No. Patient's initial sepsis screen is negative. Risk Assessment: Do you want to hurt yourself or someone else? Patient reports no desire to harm self or others. Onset of symptoms is unknown. 21:18 Method Of Arrival: Ambulatory df1 21:18 Acuity: LINDA 3 df1 Historical: - Allergies: 21:20 cats and dogs; df1 - Home Meds: 21:20 Albuterol Inhl [Active]; ProAir HFA inhalation [Active]; df1 - PMHx: 21:20 Asthma; df1 - PSHx: 21:20 None; df1 - Immunization history:: Adult Immunizations not up to date, Client reports having NOT received the Covid vaccine. - Social history:: Smoking status: Reported history of juuling and/or vaping. Patient uses alcohol, only on a social basis. street drugs, marijuana. - Family history:: not pertinent. Screenin:26 Abuse screen: Denies threats or abuse. Denies injuries from another. Nutritional ld1 screening: No deficits noted. Tuberculosis screening: No symptoms or risk factors identified. Fall Risk None identified. Assessment: 21:26 General: Appears in no apparent distress. comfortable, Behavior is cooperative, ld1 anxious. Pain: Complains of pain in left upper quadrant Pain does not radiate. Pain currently is 5 out of 10 on a pain scale. Quality of pain is described as throbbing, pulsating, Pain began X 2 months Is continuous. Neuro: Level of Consciousness is awake, alert, obeys commands, Oriented to person, place, time, situation, Appropriate for age. Cardiovascular: Capillary refill < 3 seconds Patient's skin is warm and dry. Respiratory: Airway is patent Respiratory effort is even, unlabored, Respiratory pattern is regular, symmetrical. GI: Abdomen is flat, non-distended, Bowel sounds present X 4 quads. Abd is soft Abdomen is tender to palpation in left upper quadrant Reports upper abdominal pain. : No signs and/or symptoms were reported regarding the genitourinary system. EENT: No signs and/or symptoms were reported regarding the EENT system. Derm: No signs and/or symptoms reported regarding the dermatologic system. Musculoskeletal: No signs and/or symptoms reported regarding the musculoskeletal system. 22:58 Reassessment: Patient appears in no apparent distress at this time. No changes from ld1 previously documented assessment. Patient and/or family updated on plan of care and expected duration. Pain level reassessed. Patient is alert, oriented x 3, equal unlabored respirations, skin warm/dry/pink. Vital Signs: 21:18 BP 116 / 88; Pulse 85; Resp 18; Temp 98.5; Pulse Ox 100% on R/A; Weight 54.43 kg; df1 Height 5 ft. 5 in. (165.10 cm); Pain 0/10; 21:26 BP 121 / 92; Pulse 89; Resp 18; Pulse Ox 100% on R/A; Pain 5/10; ld1 22:58 BP 118 / 90; Pulse 87; Resp 18; Pulse Ox 100% on R/A; ld1 21:18 Body Mass Index 19.97 (54.43 kg, 165.10 cm) df1 ED Course: 21:11 Patient arrived in ED. 21:20 Triage completed. df1 21:22 Mary Neri, RN is Primary Nurse. ld1 21:26 Patient has correct armband on for positive identification. Bed in low position. Call ld1 light in reach. Side rails up X2. Pulse ox on. NIBP on. Door closed. Noise minimized. 21:26 No provider procedures requiring assistance completed. ld1 21:34 David Reyes MD is Attending Physician. [facility] 21:59 Basic Metabolic Panel Sent. ld1 22:55 CT Abd/Pelvis - IV Contrast Only In Process Unspecified. EDMS 23:56 IV discontinued, intact, bleeding controlled, No redness/swelling at site. Pressure em dressing applied. Administered Medications: 21:59 Drug: NS 0.9% 1000 ml Route: IV; Rate: 1 bolus; Site: right antecubital; ld1 21:59 Drug: Pepcid (famotidine) 20 mg Route: IVP; Site: right antecubital; ld1 21:59 Follow up: Response: No adverse reaction ld1 21:59 Drug: morphine 2 mg Route: IVP; Site: right antecubital; ld1 21:59 Follow up: Response: No adverse reaction ld1 21:59 Drug: Zofran (Ondansetron) 4 mg Route: IVP; Site: right antecubital; ld1 21:59 Follow up: Response: No adverse reaction ld1 Outcome: 23:46 Discharge ordered by . [facility] 23:56 Discharged to home ambulatory. em 23:56 Condition: good 23:56 Discharge instructions given to patient, Instructed on discharge instructions, follow up and referral plans. medication usage, Demonstrated understanding of instructions, follow-up care, medications, Prescriptions given X 3. 23:57 Patient left the ED. em Signatures: Dispatcher [employer] EDOH David Reyes MD MD cha Munoz, Edgar, RN RN Mary Neri RN RN 1 Merle Reaves Criss Rg df1
[2021-04-30 00:51] VITALS: TEMP 98.5; O2SAT 100
[2021-04-30 00:54] VITALS: BP 118/90
--- NOTE | 2021-04-30 11:05 | RAD REPORT ---
EXAM DESCRIPTION: CT - Abdomen Pelvis W Contrast - 04/30/2021 6:51 am CLINICAL HISTORY: 26 years Male ABD PAIN COMPARISON: None TECHNIQUE: Images were obtained in axial, sagittal, and coronal planes. Arterial and venous phase im aging was performed. This exam was performed according to our departmental dose-optimization program which includes use of Automated Exposure Control, adjustment of the mA and/or kV according to patient size and/or use o f iterative reconstruction technique. FINDINGS: No abnormality involving the liver, spleen, pancreas, gallbladder, or adrenal glands bilat erally. No obstructing renal or ureteral calculi bilaterally. No hydronephrosis bilaterally. Moderate bladder distention. Appendix within normal limits. No bowel obstruction, perforation, or inflammation. No dilatation of abdominal aorta. Unremarkable portal vein. No adenopathy or abnormal fluid collectio ns seen. No abnormalities lower lungs bilaterally. No acute osseous abnormality. IMPRESSION: No acute intra-abdominal abnormality. 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 The interpreting r adiologist is fully responsible for the content of the report.
== END 2021-04-29 23:57 | disposition home or self-care (01) ==
LOC: ER 21:07
DX: K29.00 Acute gastritis without bleeding (principal); J45.909 Unspecified asthma, uncomplicated
CPT/HCPCS: 36415; 74177; 80048; 80076; 83690; 85025; J2270; J2405; J7030; Q9967

== ENCOUNTER 2021-12-03 20:03 | Emergency (ER) | payer SELFPAY ==
--- OUTSIDE RECORDS SUMMARY | 2021-12-03 20:06 | XMS REPORT | Continuity of Care Document ---
:1995 Author Organization [facility] t Address [address] [place] [address] [address] [place] [address] Care Team Providers Name Role Phone Unavailable Unavailable Unavailable Problems Condition Condition Condition Status Onset Resolution Last Treating Co mments Source Name Details Category Date Date Treatment Clinician Date Costochond Costochond Problem Active C ommon ral chest ral chest Spir it pain pain [facility] Allergic Allergic Problem Active Commo n rhinitis, rhinitis, Spir it unspecifie unspecifie - [facility] d d [facility] Asthma Asthma Problem Active Common [facility] Allergies, Adverse Reactions, Alerts Allergy Allergy Status Severity Reaction(s) Onset Inactive Treating Comm ents Source Name Type Date Date Clinician Pet Adverse Active shortness of Com mon dander Reaction breath [facility] Medications Ordered Filled Start Stop Current Ordering Indication Dosage Frequency Signature Comments Components Source Medication Medication Date Date Medication? Clinician (SIG) Name Name Symbicort Symbicort 2019- No Cydney Agenda 2 puffs Common -24 05-24 Spirit 00:00: 00:00 - [facility] 00 :00 [facility] Albuterol Albuterol Yes Cydney Agenda 2 puffs as Common Sulfate HFA Sulfate HFA needed [facility] Procedures This patient has no known procedures. Encounters Start End Encounter Admission Attending Care Care Encounter Source Date/Time Date/Time Type Type Clinicians Facility Department ID 2018-10-01 2018-10-01 Outpatient Nelson Damont [id number] Common 10:30:00 10:30:00 [facility] [address] [facility] 2018-08-09 2018-08-09 Outpatient Nelson Damont [id number] Common 11:30:00 11:30:00 [facility] [address] [facility] 2018-07-12 2018-07-12 Outpatient Nelson Griffith [id number] Common 14:13:00 14:13:00 t [facility] it [facility] 2018-07-08 2018-07-08 Outpatient Nelson Griffith [id number] Common 09:30:00 09:30:00 t [facility] it [facility] Results This patient has no known results.
[2021-12-03] MEDS ORDERED: METHYLPREDNISOLONE 125 MG INJ ONE (20:41)
[2021-12-03] MEDS ORDERED: ALBUTEROL 2.5 MG/3 ML NEB SOL ONE (20:41)
[2021-12-03] MEDS ORDERED: IPRATROPIUM BROM 0.5MG/2.5ML ONE (20:41)
[2021-12-03 20:52] LABS: Absolute Lymphocytes (CBC) 3.2 K/uL (0.7-4.9); Hematocrit 47.2 % (39.6-49.0); MPV 9.4 fL (7.6-11.3); RBC Red Blood Cell Count 5.19 M/uL (4.33-5.43)
[2021-12-03 20:55] LABS: Protime INR 1.08
[2021-12-03 21:09] LABS: Albumin 4.6 g/dL (3.4-5.0); Bilirubin Direct 0.1 mg/dL (0-0.2); Bilirubin Total 0.4 mg/dL (0.2-1.0); Magnesium 2.5 mg/dL (1.8-2.4); Potassium 3.9 mmol/L (3.5-5.1); Protein, Total 8.5 g/dL (6.4-8.2); Troponin High Sensitivity 3.5 pg/mL (<58.9)
[2021-12-03] MEDS ORDERED: LEVALBUTEROL 1.25 MG/3 ML NEB ONE (21:22)
--- NOTE | 2021-12-03 21:31 | RAD REPORT ---
EXAM DESCRIPTION: RAD - Chest Single View - 12/03/2021 9:15 pm CLINICAL HISTORY: SOB COMPARISON: Chest Single View dated 12/10/2020; Chest Single View dated 04/29/2019; Chest Single View dated 01/19/2019 FINDINGS: Lines: None. Lungs: No evidence of edema or pneumonia. Pleural: No significant pleural effusions or pneumothorax. Cardiac: The heart size is within normal limits. Bones: No acute fractures. Other: IMPRESSION: No acute cardiopulmonary disease.
--- NOTE | 2021-12-03 22:57 | EDPHYS ---
Physician Documentation [facility] Name: Reggie Calvo Age: 26 yrs Sex: Male : 1995 Arrival Date: 12/03/2021 Time: 20:04 Bed 26 Private MD: ED Physician Alexander Schulte HPI: 12/03 20:35 This 26 yrs old Male presents to ER via Ambulatory with complaints of Asthma cp Exacerbation. 20:35 The patient has shortness of breath at rest. Onset: The symptoms/episode began/occurred cp gradually, and became worse today. 20:35 Duration: The symptoms are continuous, and are steadily getting worse. Associated signs cp and symptoms: Pertinent negatives: chest pain, productive cough, diaphoresis, fever, vomiting. Patient reports he recently moved into parents home who have pet dogs and cats. Patient with history of asthma and known allergies to cats and dogs. Historical: - Allergies: 20:16 cats and dogs; as6 - Home Meds: 20:16 Albuterol Inhl [Active]; as6 - PMHx: 20:16 Asthma; as6 - PSHx: 20:16 None; as6 - Immunization history:: Client reports having NOT received the Covid vaccine. - Social history:: Smoking status: Reported history of juuling and/or vaping. ROS: 20:40 Constitutional: Negative for body aches, chills, fever, poor PO intake. cp 20:40 Eyes: Negative for injury, pain, redness, and discharge. cp 20:40 ENT: Negative for drainage from ear(s), ear pain, sore throat, difficulty swallowing, difficulty handling secretions. 20:40 Cardiovascular: Negative for chest pain, edema, palpitations. 20:40 Respiratory: Positive for shortness of breath, at rest. wheezing. 20:40 Abdomen/GI: Negative for abdominal pain, nausea, vomiting, and diarrhea. 20:40 Back: Negative for radiated pain. 20:40 Neuro: Negative for altered mental status, dizziness, headache, weakness. 20:40 All other systems are negative. Exam: 20:45 Constitutional: The patient appears alert, awake, non-diaphoretic, non-toxic, well cp developed, well nourished, in obvious distress, mildly distressed. 20:45 Head/Face: Normocephalic, atraumatic. cp 20:45 Eyes: Periorbital structures: appear normal, Conjunctiva: normal, no exudate, no injection, Sclera: no appreciated abnormality, Lids and lashes: appear normal, bilaterally. 20:45 ENT: External ear(s): are unremarkable, Ear canal(s): are normal, clear, TM's: dullness, bilaterally, Nose: is normal, Mouth: Lips: moist, Oral mucosa: pink and intact, moist, Posterior pharynx: Airway: no evidence of obstruction, patent, Tonsils: are normal in appearance, swelling, is not appreciated, erythema, is not appreciated, exudate, is not appreciated. 20:45 Neck: ROM/movement: is normal, is supple, without pain, no range of motions limitations. 20:45 Chest/axilla: Inspection: normal. 20:45 Cardiovascular: Rate: normal, Rhythm: regular, Edema: is not appreciated, JVD: is not appreciated. 20:45 Respiratory: mild respiratory distress is noted, Respirations: labored breathing, that is mild, shallow respirations, that is moderate, Breath sounds: decreased breath sounds, that are mild, throughout, stridor, is not appreciated, wheezing: that is moderate, is heard diffusely. 20:45 Abdomen/GI: Inspection: abdomen appears normal, Palpation: abdomen is soft and non-tender, in all quadrants. 20:45 Back: pain, is absent, ROM is normal. 20:45 Neuro: Orientation: to person, place \T\ time. Mentation: is normal, Cerebellar function: is grossly normal, Motor: moves all fours, strength is normal, Sensation: is normal. 21:00 ECG was reviewed by the Attending Physician. cp Vital Signs: 20:12 BP 130 / 87; Pulse 103; Resp 26 S; Temp 98.4(TE); Pulse Ox 90% on R/A; Weight 54.43 kg as6 (R); Height 5 ft. 5 in. (165.10 cm) (R); Pain 3/10; 20:22 BP 117 / 78; Pulse 93; Resp 26; Pulse Ox 93% on 3 lpm NC; bh1 21:27 BP 129 / 84; Pulse 104; Resp 20; Temp 98.3(O); Pulse Ox 94% on R/A; bh1 21:37 BP 112 / 76; Pulse 100; Resp 20; Pulse Ox 96% on R/A; bh1 22:11 BP 111 / 75; Pulse 86; Resp 18; Pulse Ox 96% on R/A; bh1 23:03 BP 102 / 67; Pulse 88; Resp 20; Temp 98.3(O); Pulse Ox 98% on R/A; bh1 20:12 Body Mass Index 19.97 (54.43 kg, 165.10 cm) as6 MDM: 20:28 Patient medically screened. cp 20:45 Differential diagnosis: asthma, Bronchitis CHF exacerbation, Chronic Obstructive cp Pulmonary Disease Myocardial Infarction pneumonia, Pneumothorax pulmonary edema, Pulmonary Embolism. 22:55 Data reviewed: vital signs, nurses notes, lab test result(s), EKG, radiologic studies, cp plain films. 22:55 Test interpretation: by ED physician or midlevel provider: ECG, plain radiologic cp studies. Response to treatment: the patient's symptoms have markedly improved after treatment, and as a result, I will discharge patient. ED course: VSS. Patient reports symptoms markedly improved. Will discharge to home for continued monitoring. 12/03 20:28 Order name: Basic Metabolic Panel; Complete Time: 22:26 cp 12/03 22:26 Interpretation: Normal except: CL 109. cp 12/03 20:28 Order name: CBC with Diff; Complete Time: 22:26 cp 12/03 22:54 Interpretation: Normal except: EOSINOPHIL % 8.6; EOSA 0.8. cp 12/03 20:28 Order name: D-Dimer; Complete Time: 22:26 cp 12/03 20:28 Order name: LFT's; Complete Time: 22:26 cp 12/03 22:54 Interpretation: Normal except: TP 8.5; GLOB 3.9. cp 12/03 20:28 Order name: Magnesium; Complete Time: 22:26 cp 12/03 22:26 Interpretation: Abnormal: MG 2.5. cp 12/03 20:28 Order name: NT PRO-BNP; Complete Time: 22:26 cp 12/03 22:54 Interpretation: Reviewed. cp 12/03 20:28 Order name: PT-INR; Complete Time: 22:26 cp 12/03 20:28 Order name: Troponin HS; Complete Time: 22:26 cp 12/03 20:28 Order name: XRAY Chest (1 view); Complete Time: 22:26 cp 12/03 20:28 Order name: EKG; Complete Time: 20: cp 12/03 20: Order name: Cardiac monitoring; Complete Time: 20: cp 12/03 20:28 Order name: EKG - Nurse/Tech; Complete Time: 21: cp 12/03 20:28 Order name: IV Saline Lock; Complete Time: 20:32 cp 12/03 20:28 Order name: Labs collected and sent; Complete Time: : cp 12/03 20: Order name: O2 Per Protocol; Complete Time: :32 cp 12/03 20: Order name: O2 Sat Monitoring; Complete Time: : EC:00 Rate is 94 beats/min. Rhythm is regular. HI interval is normal. QRS interval is normal. cp QT interval is normal. T waves are Inverted in lead aVR. Interpreted by me. Reviewed by me. Administered Medications: 20:41 Drug: Albuterol - atroVENT (ipratropium) (3:1) (2.5 mg - 0.5 mg) 3 ml Route: Nebulizer; 1 20:42 Follow up: Response: [facility] 20:41 Drug: SOLU-Medrol (methylPrednisoLONE) 125 mg Route: IVP; Site: right antecubital; [facility] 20:42 Follow up: Response: No adverse reaction [facility] 21:20 Drug: Xopenex (levalbuterol) 1.25 mg Route: Inhalation; 1 21:27 Follow up: Response: No adverse reaction [facility] Disposition: 12/04 01:41 Co-signature as Attending Physician, Alexander Schulte MD I agree with the assessment and kdr plan of care. Disposition Summary: 12/03/21 22:57 Discharge Ordered Location: Home cp Problem: an acute exacerbation cp Symptoms: have improved cp Condition: Stable cp Diagnosis - Unspecified asthma with (acute) exacerbation cp Followup: cp - With: Private Physician - When: 1 - 2 days - Reason: Recheck today's complaints Discharge Instructions: - Discharge Summary Sheet cp - Asthma, Adult cp Forms: - Medication Reconciliation Form cp - Thank You Letter cp - Antibiotic Education cp - Prescription Opioid Use cp Prescriptions: - albuterol sulfate 90 mcg/actuation Inhalation HFA aerosol inhaler - inhale 1 puff by INHALATION route every 4-6 hours; 1 Inhaler; Refills: 0, cp Product Selection Permitted - Singulair 10 mg Oral Tablet - take 1 tablet by ORAL route At bedtime; 20 tablet; Refills: 0, Product cp Selection Permitted - Albuterol Sulfate 2.5 mg /3 mL (0.083 %) Inhalation Solution for Nebulization - inhale 1 unit by NEBULIZATION route every 8 hours As needed; 1 box; Refills: 0, cp Product Selection Permitted - Prednisone 20 mg Oral Tablet - take 2 tablets by ORAL route once daily for 5 days; 10 tablet; Refills: 0, cp Product Selection Permitted Signatures: Dispatcher [employer] EDMS Alexander Schulte MD MD kdr David Snider PA PA cp Slawson, Ashby, RN RN as6 Magdalene Hoff RN RN bh1 Corrections: (The following items were deleted from the chart) 12/03 22:54 22:26 Normal except: EOSINOPHIL % 8.6. cp cp 12/04 20:49 12/03 20:30 Differential diagnosis: asthma, Bronchitis CHF exacerbation, Chronic cp Obstructive Pulmonary Disease Myocardial Infarction pneumonia, Pneumothorax pulmonary edema, Pulmonary Embolism cp
--- NOTE | 2021-12-03 22:57 | ER ---
Nurse's Notes [facility] Name: Reggie Calvo Age: 26 yrs Sex: Male : 1995 Arrival Date: 12/03/2021 Time: 20:04 Bed 26 Private MD: Diagnosis: Unspecified asthma with (acute) exacerbation Presentation: 12/03 20:12 Chief complaint: Patient states: he has been having shortness of breath all day today, as6 pt has a hx of asthma and reports he has been around animals all day, pt have taken albuterol x2 at home with no improvement. Coronavirus screen: At this time, the client does not indicate any symptoms associated with coronavirus-19. Ebola Screen: No symptoms or risks identified at this time. Initial Sepsis Screen: Does the patient meet any 2 criteria? RR > 20 per min. HR > 90 bpm. Yes Does the patient have a suspected source of infection? No. Patient's initial sepsis screen is negative. Risk Assessment: Do you want to hurt yourself or someone else? Patient reports no desire to harm self or others. Onset of symptoms was December 03, 2021. Care prior to arrival: Medication(s) given: Albuterol Neb x 2. 20:12 Method Of Arrival: Ambulatory as6 20:12 Acuity: LINDA 2 as6 Triage Assessment: 20:17 General: Appears slender, Behavior is calm, cooperative. Pain: Complains of pain in as6 chest. Respiratory: Reports shortness of breath. Historical: - Allergies: 20:16 cats and dogs; as6 - Home Meds: 20:16 Albuterol Inhl [Active]; as6 - PMHx: 20:16 Asthma; as6 - PSHx: 20:16 None; as6 - Immunization history:: Client reports having NOT received the Covid vaccine. - Social history:: Smoking status: Reported history of juuling and/or vaping. Screenin:22 Abuse screen: Denies threats or abuse. Nutritional screening: No deficits noted. bh1 Tuberculosis screening: No symptoms or risk factors identified. Fall Risk None identified. Assessment: 20:20 Reassessment: Patient appears in no apparent distress at this time. General: Appears bh1 distressed, Behavior is calm, cooperative, appropriate for age. Respiratory: Airway is patent Respiratory effort is labored, with nasal flaring. Vital Signs: 20:12 BP 130 / 87; Pulse 103; Resp 26 S; Temp 98.4(TE); Pulse Ox 90% on R/A; Weight 54.43 kg as6 (R); Height 5 ft. 5 in. (165.10 cm) (R); Pain 3/10; 20:22 BP 117 / 78; Pulse 93; Resp 26; Pulse Ox 93% on 3 lpm NC; bh1 21:27 BP 129 / 84; Pulse 104; Resp 20; Temp 98.3(O); Pulse Ox 94% on R/A; bh1 21:37 BP 112 / 76; Pulse 100; Resp 20; Pulse Ox 96% on R/A; bh1 22:11 BP 111 / 75; Pulse 86; Resp 18; Pulse Ox 96% on R/A; bh1 23:03 BP 102 / 67; Pulse 88; Resp 20; Temp 98.3(O); Pulse Ox 98% on R/A; bh1 20:12 Body Mass Index 19.97 (54.43 kg, 165.10 cm) as6 ED Course: 20:04 Patient arrived in ED. rg4 20:16 Triage completed. as6 20:17 Arm band placed on. as6 20:20 Magdalene Hoff, RN is Primary Nurse. 1 20:21 David Snider PA is PHCP. cp 20:21 Alexander Schulte MD is Attending Physician. cp 20:22 Appears restless. Awaiting ED provider evaluation. bh1 20:22 Patient has correct armband on for positive identification. Pulse ox on. NIBP on. bh1 20:22 No provider procedures requiring assistance completed. 1 20:32 Basic Metabolic Panel Sent. 1 20:32 CBC with Diff Sent. 1 20:32 D-Dimer Sent. 1 20:32 LFT's Sent. 1 20:32 Magnesium Sent. 1 20:32 NT PRO-BNP Sent. 1 20:32 PT-INR Sent. 1 20:32 Troponin HS Sent. 1 20:42 Inserted saline lock: 20 gauge in right antecubital area, using aseptic technique. 1 Blood collected. 21:02 EKG done, by ED staff, reviewed by David SWAIN. 1 21:16 XRAY Chest (1 view) In Process Unspecified. EDOR 21:28 No apparent distress. Awaiting lab results, Awaiting radiology results. bh1 21:38 No apparent distress. Awaiting lab results. bh1 22:11 No apparent distress. Awaiting disposition. [facility] 23:03 IV discontinued, intact, bleeding controlled, No redness/swelling at site. [facility] Administered Medications: 20:41 Drug: Albuterol - atroVENT (ipratropium) (3:1) (2.5 mg - 0.5 mg) 3 ml Route: Nebulizer; [facility] 20:42 Follow up: Response: No adverse reaction [facility] 20:41 Drug: SOLU-Medrol (methylPrednisoLONE) 125 mg Route: IVP; Site: right antecubital; [facility] 20:42 Follow up: Response: No adverse reaction [facility] 21:20 Drug: Xopenex (levalbuterol) 1.25 mg Route: Inhalation; [facility] 21:27 Follow up: Response: No adverse reaction [facility] Medication: 20:22 VIS not applicable for this client. [facility] Outcome: 22:57 Discharge ordered by . hayes 23:04 Discharged to home ambulatory. [facility] 23:04 Condition: good 23:04 Discharge instructions given to patient, Instructed on discharge instructions, follow up and referral plans. medication usage, benefits of quitting smoking, Demonstrated understanding of instructions, follow-up care, medications, Prescriptions given X 4. 23:04 Patient left the ED. [facility] Signatures: Dispatcher [employer] EDOR David Snider PA PA cp Garcia, Rubi rg4 Weston Dozier RN RN as6 Magdalene Hoff RN RN [facility]
[2021-12-03 23:25] VITALS: TEMP 98.3
[2021-12-03 23:30] VITALS: BP 102/67; O2SAT 98
--- NOTE | 2021-12-04 07:18 | EKG ---
Test Date: 2021-12-03 Test Time: 20:55:15 [place] Operator: [place] MEASUREMENT RESULTS: Intervals: Rate: 94 VA: 140 QRSD: 94 QT: 352 QTc: 440 [place]: P: 83 VA: 140 QRS: 262 T: 74 INTERPRETIVE STATEMENTS: Normal sinus rhythm Right atrial enlargement Right superior axis deviation Pulmonary disease pattern Incomplete right bundle branch block Abnormal ECG Compared to ECG 12/10/2020 19:49:08 Atrial abnormality now present Right superior axis now present Incomplete right bundle-branch block now present Sinus arrhythmia no longer present Electronically Signed On 12-04-21 07:17:09 CDT by Ishaan Caal
== END 2021-12-03 23:04 | disposition home or self-care (01) ==
LOC: ER 20:03
DX: J45.901 Unspecified asthma with (acute) exacerbation (principal)
CPT/HCPCS: 36415; 71045; 80048; 80076; 83735; 83880; 84484; 85025; 85379; 85610; 93005; J2930

== ENCOUNTER 2024-01-23 15:26 | Inpatient (IN) | payer SELFPAY ==
--- OUTSIDE RECORDS SUMMARY | 2024-01-23 15:29 | XMS REPORT | Continuity of Care Document ---
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 Name Role Phone Unavailable Unavailable Unavailable Problems Condition Name Condition Details Condition Category Status Onset Date Resolution Date Last Treatment Date Treating Clinician Comments Source Costochond ral chest pain Costochond ral chest pain Problem Active [facility] Allergic rhinitis, unspecifie d Allergic rhinitis, unspecifie d Problem Active [facility] Asthma Asthma Problem Active [facility] Allergies, Adverse Reactions, Alerts Allergy Name Allergy Type Status Severity Reaction(s) Onset Date Inactive Date Treating Clinician Comments Source Pet dander Adverse Reaction Active shortness of breath [facility] Medications Ordered Medication Name Filled Medication Name Start Date Stop Date Current Medication? Ordering Clinician Indication Dosage Frequency Signature (SIG) Comments Components Source Symbicort Symbicort 07-08 00:00: 00 11-05 00:00 :00 No Cydney George [address] [facility] Albuterol Sulfate HFA Albuterol Sulfate HFA Yes Cydney George 2 puffs a s needed [facility] Encounters Start Date/Time End Date/Time Encounter Type Admission Type Attending Clinicians Care Facility Care Department Encounter ID Source 2018-10-01 10:30:00 2018-10-01 10:30:00 Outpatient [facility] [id number] [facility] 2018-08-09 11:30:00 2018-08-09 11:30:00 Outpatient [facility] Medicine [facility] [id number] [facility] 2018-07-12 14:13:00 2018-07-12 14:13:00 Outpatient [facility] [id number] [facility] 2018-07-08 09:30:00 2018-07-08 09:30:00 Outpatient [facility] [id number] [facility]
[2024-01-23] MEDS ORDERED: IPRATROPIUM BROM 0.5MG/2.5ML ONE ×2 (15:56→18:53)
[2024-01-23] MEDS ORDERED: ALBUTEROL 2.5 MG/3 ML NEB SOL ONE ×3 (15:56→18:53)
[2024-01-23] MEDS ORDERED: METHYLPREDNISOLONE 125 MG INJ ONE (16:06)
[2024-01-23] MEDS ORDERED: CEFTRIAXONE 1000 MG/VIAL ONE (16:06)
[2024-01-23] MEDS ORDERED: predniSONE 20 MG TAB ONE (16:06)
[2024-01-23] MEDS ORDERED: Magnesium Sulfate 2gm IVPB 2 G/50 ML BAG IV ONE (16:06)
[2024-01-23] MEDS ORDERED: NA CHLORIDE 0.9% 1,000 ML ONE ×2 (16:07→19:41)
[2024-01-23 16:24] LABS: Absolute Basophils 0.1 K/uL (0-0.5); Absolute Eosinophils 0.4 K/uL (0-0.5); Absolute Lymphocytes (CBC) 1.6 K/uL (0.7-4.9); Absolute Monocytes 0.7 K/uL (0.1-1.3); Absolute Neutrophil 4.7 K/uL (1.8-8.0); Basophils % 0.8 % (0-1.3); Eosinophils % 4.9 % (0-4.4); Hemoglobin 15.1 g/dL (13.6-17.9); Lymphocytes % 21.6 % (15.3-44.8); MCH 31.3 pg (27.0-35.0); MCHC 32.9 g/dL (32.0-36.0); MCV 95.1 fL (80-100); MPV 9.1 fL (7.6-11.3); Monocytes % 9.5 % (3.3-12.3); Neutrophils % 63.2 % (41.7-73.7); Platelets 227 thou/uL (152-406); RBC Red Blood Cell Count 4.84 M/uL (4.33-5.43); Red Cell Distribution Width 14.3 % (12.1-15.2)
[2024-01-23 17:13] LABS: SARS-CoV-2 Antigen CONTROL BLUE LINE VIS/BG OK; SARS-CoV-2 Antigen Rapid Res Negative (Negative)
[2024-01-23 17:15] LABS: Albumin 4.1 g/dL (3.4-5.0); Albumin/Globulin Ratio 1.2 (1.1-1.8); Anion Gap 6.5 mEq/L (5.0-15.0); Bilirubin Total 0.8 mg/dL (0.2-1.0); Globulin 3.5 g/dL (2.3-3.5); Potassium 4.5 mEq/L (3.5-5.1); Protein, Total 7.6 g/dL (6.4-8.2)
--- NOTE | 2024-01-23 17:50 | EDPHYS ---
Physician Documentation [facility] Name: Reggie Calvo Age: 28 yrs Sex: Male : 1995 Arrival Date: 01/23/2024 Time: 15:26 Bed 12 Private MD: ED Physician David Reyes HPI: 01/22 16:02 This 28 yrs old Male presents to ER via Ambulatory with complaints of barry Breathing Difficulty. 16:02 The patient has shortness of breath with light activity. Onset: The symptoms/episode barry began/occurred 2 day(s) ago. Duration: The symptoms are continuous, and are steadily getting worse. The patient's shortness of breath is aggravated by coughing, exertion, light activity, talking. Associated signs and symptoms: Pertinent positives: non-productive cough. Severity of symptoms: At their worst the symptoms were moderate severe in the emergency department the symptoms are worse. The patient has experienced similar episodes in the past, multiple times. Historical: - Allergies: 15:53 cats and dogs; cm10 - PMHx: 15:53 Asthma; cm10 - Immunization history:: Adult Immunizations up to date. - Infectious Disease History:: Denies. - Social history:: Smoking status: Patient denies any tobacco usage or history of. ROS: 16:04 Constitutional: Negative for fever, chills, and weight loss, Eyes: Negative for injury, barry pain, redness, and discharge, ENT: Negative for injury, pain, and discharge, Neck: Negative for injury, pain, and swelling, Cardiovascular: Negative for chest pain, palpitations, and edema, Abdomen/GI: Negative for abdominal pain, nausea, vomiting, diarrhea, and constipation, Back: Negative for injury and pain, : Negative for injury, bleeding, discharge, and swelling, MS/Extremity: Negative for injury and deformity, Skin: Negative for injury, rash, and discoloration, Neuro: Negative for headache, weakness, numbness, tingling, and seizure, Psych: Negative for depression, anxiety, suicide ideation, homicidal ideation, and hallucinations, Allergy/Immunology: Negative for hives, rash, and allergies, Endocrine: Negative for neck swelling, polydipsia, polyuria, polyphagia, and marked weight changes, Hematologic/Lymphatic: Negative for swollen nodes, abnormal bleeding, and unusual bruising, 16:04 Cardiovascular: Positive for chest pain, palpitations, Exam: 16:04 Constitutional: This is a well developed, well nourished patient who is awake, alert, barry and in no acute distress. Head/Face: Normocephalic, atraumatic. Eyes: Pupils equal round and reactive to light, extra-ocular motions intact. Lids and lashes normal. Conjunctiva and sclera are non-icteric and not injected. Cornea within normal limits. Periorbital areas with no swelling, redness, or edema. ENT: Nares patent. No nasal discharge, no septal abnormalities noted. Tympanic membranes are normal and external auditory canals are clear. Oropharynx with no redness, swelling, or masses, exudates, or evidence of obstruction, uvula midline. Mucous membranes moist. Neck: Trachea midline, no thyromegaly or masses palpated, and no cervical lymphadenopathy. Supple, full range of motion without nuchal rigidity, or vertebral point tenderness. No Meningismus. Chest/axilla: Normal chest wall appearance and motion. Nontender with no deformity. No lesions are appreciated. Cardiovascular: Regular rate and rhythm with a normal S1 and S2. No gallops, murmurs, or rubs. Normal PMI, no JVD. No pulse deficits. Abdomen/GI: Soft, non-tender, with normal bowel sounds. No distension or tympany. No guarding or rebound. No evidence of tenderness throughout. Back: No spinal tenderness. No costovertebral tenderness. Full range of motion. Male : Normal genitalia with no discharge or lesions. Skin: Warm, dry with normal turgor. Normal color with no rashes, no lesions, and no evidence of cellulitis. MS/ Extremity: Pulses equal, no cyanosis. Neurovascular intact. Full, normal range of motion. Neuro: Awake and alert, GCS 15, oriented to person, place, time, and situation. Cranial nerves II-XII grossly intact. Motor strength 5/5 in all extremities. Sensory grossly intact. Cerebellar exam normal. Normal gait. Psych: Awake, alert, with orientation to person, place and time. Behavior, mood, and affect are within normal limits. 16:04 Respiratory: moderate respiratory distress is noted, severe repiratory distress is noted, Respirations: labored breathing, that is moderate, Breath sounds: decreased breath sounds, that are moderate, are scattered, rhonchi, that are mild, are scattered, stridor, is not appreciated, + upper airway congestion. wheezing: inspiratory expiratory Respiratory rate: 28 Vital Signs: 15:52 BP 147 / 68; Pulse 84; Resp 28; Temp 98.1; Pulse Ox 92% on R/A; Weight 56.7 kg; Height cm10 5 ft. 5 in. ; Pain 0/10; 16:30 BP 115 / 68; Pulse 68; Resp 17; Pulse Ox 95% on R/A; hb 18:30 Pulse Ox 93% on R/A; hb 18:55 BP 113 / 66; Pulse 71; Resp 18; Pulse Ox 99% on 2 lpm NC; hb 15:52 Body Mass Index 20.80 (56.70 kg, 165.1 cm) cm10 15:52 Pain Scale: Adult cm10 MDM: 15:55 Patient medically screened. [facility] 16:09 Differential diagnosis: CHF exacerbation, Chronic Obstructive Pulmonary Disease barry bronchitis, flu, URI, acute asthma, exercise-induced asthma, reactive airway, CHF, anaphylaxis, URI, pulmonary edema, Pulmonary Embolism reactive airway disease. Antibiotic administration: Rocephin and Zithromax given. Immunization status:. Data reviewed: vital signs, nurses notes, lab test result(s), radiologic studies, plain films. Consideration of Admission/Observation Patient was admitted/placed on observation. Escalation of care including admission/observation considered. I considered the following discharge prescriptions or medication management in the emergency department Medications were administered in the Emergency Department. See MAR. Independent interpretation of the following test(s) in the Emergency Department X-Ray: My interpretation is cxr. Test considered but Not performed: CT: no ct chest. Historians other than the Patient: pt well informed. Care significantly affected by the following chronic conditions: asthma. Counseling: I had a detailed discussion with the patient and/or guardian regarding the historical points, exam findings, and any diagnostic results supporting the discharge/admit diagnosis, lab results, radiology results, the need for further work-up and treatment in the hospital. 01/22 16: Order name: CBC with Diff; Complete Time: 17:45 [facility] 01/22 16: Order name: Comprehensive Metabolic Panel; Complete Time: 17:45 [facility] 01/22 16: Order name: Flu; Complete Time: 17:45 [facility] 01/22 16: Order name: SARS RAPID; Complete Time: 17:45 barry 01/22 18:31 Order name: Urinalysis w/ reflexes EDMS 01/22 18:31 Order name: CBC with Automated Diff EDMS 01/22 18:31 Order name: CBC with Automated Diff EDMS 01/22 18:31 Order name: Comprehensive Metabolic Panel EDMS 01/22 18:31 Order name: Comprehensive Metabolic Panel EDMS 01/22 16:01 Order name: Chest Pa And Lat (2 Views) XRAY barry Administered Medications: 16:04 Drug: DuoNeb Nebulize (2.5 mg - 0.5 mg) 3 ml Nebulizer once Route: Nebulizer; cm10 17:30 Follow up: Response: Wheezing diminished kb3 16:16 Drug: Rocephin IV 1 grams IV at per protocol once; Given slow IV push per pharmacy cm10 instructions Route: IV; Rate: per protocol; Site: right forearm; 19:00 Follow up: Response: No adverse reaction; IV Status: Completed infusion; IV Intake: kb3 100ml 16:17 Drug: NS 0.9% IV 1000 ml IV at 1 bolus Per protocol; 1000 mL bolus Route: IV; Rate: 1 cm10 bolus; Site: right forearm; 19:00 Follow up: Response: No adverse reaction; IV Status: Completed infusion; IV Intake: kb3 1000ml 16:17 Drug: Magnesium Sulfate IVPB 2 grams IVPB once over 2 hrs Route: IVPB; Infused Over: 2 cm10 hrs; Site: right forearm; 19:44 Follow up: IV Status: Completed infusion; IV Intake: 50ml ha1 16:17 Drug: MethylPrednisoLONE IVP 125 mg IVP once Route: IVP; Site: right forearm; cm10 16:57 Follow up: Response: No adverse reaction cm10 16:18 Drug: predniSONE PO 60 mg PO once Route: PO; cm10 16:57 Follow up: Response: No adverse reaction cm10 16:57 CANCELLED (Other Intervention Used): levalbuterol3.75 mg Inhalation once cm10 16:57 CANCELLED (Other Intervention Used): ipratropiumaerosol 0.5 mg Inhalation once cm10 18:15 Drug: Levalbuterol Inhalation 2.5 mg Inhalation once Route: Inhalation; kb3 19:00 Follow up: Response: Wheezing diminished kb3 19:40 Drug: NS 0.9% IV 1000 ml IV at 125 ml/hr continuous Route: IV; Rate: 125 ml/hr; Site: kb3 right forearm; 19:45 Follow up: IV Status: Infusion continued upon admission ha1 Disposition Summary: 01/23/24 17:49 Hospitalization Ordered Notes: Hospitalization Status: Observation barry Provider: Fede Gatica cha Location: Telemetry/MedSurg (observation) barry Condition: Fair barry Problem: new barry Symptoms: have improved barry Bed/Room Type: Standard [facility] Room Assignment: 210(01/23/24 18:47) dw Diagnosis - Hypoxemia barry - Moderate persistent asthma with (acute) exacerbation barry Forms: - Medication Reconciliation Form barry - SBAR form barry - Leadership Thank You Letter barry Signatures: Dispatcher [employer] EDJudit Sheriff RN David Huff MD MD cha Bradberry, Kelly RN RN kb3 Yola Springer RN RN cm10 Aubrie Andrea RN ha1 Corrections: (The following items were deleted from the chart) 16:02 16:02 CBC+H.LAB.BRZ ordered. EDMS EDMS 16:02 16:02 COMPREHENSIVE METABOLIC PANEL+C.LAB.BRZ ordered. EDMS EDMS 16:02 16:02 Influenza Screen (A \T\ B)+BA.LAB.BRZ ordered. EDMS EDMS 16:02 16:02 SARS-COV-2 Antigen Rapid+I.LAB.BRZ ordered. EDMS EDMS 16:02 16:02 Chest Pa And Lat (2 Views)+RAD.RAD.BRZ ordered. EDOR EDMS 16:57 16:01 Levalbuterol Inhalation 3.75 mg Inhalation once ordered. [facility] cm10 16:57 16:01 Ipratropium Inhalation Aerosol 0.5 mg Inhalation once ordered. [facility] cm10 18:47 17:49 barry dw
--- NOTE | 2024-01-23 17:50 | ER ---
Nurse's Notes [facility] Name: Reggie Calvo Age: 28 yrs Sex: Male : 1995 Arrival Date: 01/23/2024 Time: 15:26 Bed 12 Private MD: Diagnosis: Hypoxemia;Moderate persistent asthma with (acute) exacerbation Presentation: 01/22 15:52 Chief complaint: Patient states: "I am having an asthma attack. I have been doing cm10 breathing treatments with no relief.". Coronavirus screen: Client denies travel out of the [place] in the last 14 days. At this time, the client does not indicate any symptoms associated with coronavirus-19. Ebola Screen: Patient denies travel to an Ebola-affected area in the 21 days before illness onset. No symptoms or risks identified at this time. Initial Sepsis Screen: Does the patient meet any 2 criteria? No. Patient's initial sepsis screen is negative. Does the patient have a suspected source of infection? No. Patient's initial sepsis screen is negative. Risk Assessment: Do you want to hurt yourself or someone else? Patient reports no desire to harm self or others. Onset of symptoms was January 23, 2024. 15:52 Method Of Arrival: Ambulatory cm10 15:52 Acuity: LINDA 2 cm10 Triage Assessment: 15:55 General: Appears uncomfortable, Behavior is calm, cooperative. Pain: Denies pain. cm10 Respiratory: Reports shortness of breath Airway is patent Respiratory effort is labored, Respiratory pattern is tachypnea Breath sounds with wheezes bilaterally. Onset: The symptoms/episode began/occurred just prior to arrival, the patient has moderate shortness of breath. Historical: - Allergies: 15:53 cats and dogs; cm10 - PMHx: 15:53 Asthma; cm10 - Immunization history:: Adult Immunizations up to date. - Infectious Disease History:: Denies. - Social history:: Smoking status: Patient denies any tobacco usage or history of. Screenin:26 [facility] ED Fall Risk Assessment (Adult) History of falling in the last 3 months, cm10 including since admission No falls in past 3 months (0 pts) Confusion or Disorientation No (0 pts) Intoxicated or Sedated No (0 pts) Impaired Gait No (0 pts) Mobility Assist Device Used No (0 pt) Altered Elimination No (0 pt) Score/Fall Risk Level 0 - 2 = Low Risk Oriented to surroundings, Maintained a safe environment, Hourly rounding (assess needs \\T\\ fall precautionary measures) done. Abuse screen: Denies threats or abuse. Denies injuries from another. Nutritional screening: No deficits noted. Tuberculosis screening: No symptoms or risk factors identified. Assessment: 16:05 General: Appears distressed, Behavior is calm, cooperative. Pain: Denies pain. Neuro: hb Level of Consciousness is awake, alert, obeys commands, Oriented to person, place, time, situation. Cardiovascular: Patient's skin is warm and dry. Rhythm is regular. Respiratory: Respiratory effort is labored, Respiratory pattern is tachypnea. GI: No signs and/or symptoms were reported involving the gastrointestinal system. : No signs and/or symptoms were reported regarding the genitourinary system. EENT: No signs and/or symptoms were reported regarding the EENT system. Derm: Skin is pink, warm \\T\\ dry. Musculoskeletal: No signs and/or symptoms reported regarding the musculoskeletal system. 17:00 Reassessment: Patient appears in no apparent distress at this time. Patient and/or hb family updated on plan of care and expected duration. Pain level reassessed. Patient is alert, oriented x 3, equal unlabored respirations, skin warm/dry/pink. Patient states symptoms have improved. 18:00 Reassessment: Patient appears in no apparent distress at this time. Patient and/or hb family updated on plan of care and expected duration. Pain level reassessed. Patient is alert, oriented x 3, equal unlabored respirations, skin warm/dry/pink. Vital Signs: 15:52 BP 147 / 68; Pulse 84; Resp 28; Temp 98.1; Pulse Ox 92% on R/A; Weight 56.7 kg; Height cm10 5 ft. 5 in. ; Pain 0/10; 16:30 BP 115 / 68; Pulse 68; Resp 17; Pulse Ox 95% on R/A; hb 18:30 Pulse Ox 93% on R/A; hb 18:55 BP 113 / 66; Pulse 71; Resp 18; Pulse Ox 99% on 2 lpm NC; hb 15:52 Body Mass Index 20.80 (56.70 kg, 165.1 cm) cm10 15:52 Pain Scale: Adult cm10 ED Course: 15:28 Patient arrived in ED. ra3 15:53 Triage completed. cm10 15:54 Arm band placed on Patient placed in an exam room, on a stretcher. cm10 15:55 David Reyes MD is Attending Physician. barry 15:55 Chloe Roberts PA-C is PHCP. sb4 16:03 Initial lab(s) drawn, by me, held in ED. Inserted saline lock: 18 gauge in right cm10 forearm, using aseptic technique. Blood collected. Flushed with 10 mL NS. 16:17 Comprehensive Metabolic Panel Sent. cm10 16:17 CBC with Diff Sent. cm10 16:25 Yola Springer, EVELINA is Primary Nurse. cm10 16:26 Patient has correct armband on for positive identification. Placed in gown. Bed in low cm10 position. Provided Education on: ER process and procedures.. Pulse ox on. NIBP on. 16:27 Initial Neb Treatment Given as ordered Patient was instructed and evaluated on cm10 procedure Patient tolerated procedure well without adverse effect. 16:44 SARS RAPID Sent. bc6 16:44 Flu Sent. bc6 17:42 Chest Pa And Lat (2 Views) XRAY In Process Unspecified. EDMS 17:46 Fede Gatica MD is Hospitalizing Provider. barry 19:45 No provider procedures requiring assistance completed. Patient admitted, IV remains in ha1 place. Administered Medications: 16:04 Drug: DuoNeb Nebulize (2.5 mg - 0.5 mg) 3 ml Nebulizer once Route: Nebulizer; cm10 17:30 Follow up: Response: Wheezing diminished kb3 16:16 Drug: Rocephin IV 1 grams IV at per protocol once; Given slow IV push per pharmacy cm10 instructions Route: IV; Rate: per protocol; Site: right forearm; 19:00 Follow up: Response: No adverse reaction; IV Status: Completed infusion; IV Intake: kb3 100ml 16:17 Drug: NS 0.9% IV 1000 ml IV at 1 bolus Per protocol; 1000 mL bolus Route: IV; Rate: 1 cm10 bolus; Site: right forearm; 19:00 Follow up: Response: No adverse reaction; IV Status: Completed infusion; IV Intake: kb3 1000ml 16:17 Drug: Magnesium Sulfate IVPB 2 grams IVPB once over 2 hrs Route: IVPB; Infused Over: 2 cm10 hrs; Site: right forearm; 19:44 Follow up: IV Status: Completed infusion; IV Intake: 50ml ha1 16:17 Drug: MethylPrednisoLONE IVP 125 mg IVP once Route: IVP; Site: right forearm; cm10 16:57 Follow up: Response: No adverse reaction cm10 16:18 Drug: predniSONE PO 60 mg PO once Route: PO; cm10 16:57 Follow up: Response: No adverse reaction cm10 16:57 CANCELLED (Other Intervention Used): levalbuterol3.75 mg Inhalation once cm10 16:57 CANCELLED (Other Intervention Used): ipratropiumaerosol 0.5 mg Inhalation once cm10 18:15 Drug: Levalbuterol Inhalation 2.5 mg Inhalation once Route: Inhalation; 3 19:00 Follow up: Response: Wheezing diminished kb3 19:40 Drug: NS 0.9% IV 1000 ml IV at 125 ml/hr continuous Route: IV; Rate: 125 ml/hr; Site: kb3 right forearm; 19:45 Follow up: IV Status: Infusion continued upon admission ha1 Medication: 16:26 VIS not applicable for this client. cm10 Intake: 19:00 IV: 1000ml; Total: 1000ml. kb3 19:00 IV: 100ml; Total: 1100ml. kb3 19:44 IV: 50ml; Total: 1150ml. 1 Outcome: 17:49 Decision to Hospitalize by Provider. barry 19:45 Admitted to Med/surg accompanied by nurse, via wheelchair, room 210, 1 19:45 Condition: good 19:45 Instructed on the need for admit, 19:45 Patient left the ED. 1 Signatures: Dispatcher [employer] EDMS David Reyes MD MD cha Baxter, Heather, RN RN hb Aubrie Andrea RN RN ha1 Tala Cochran RN RN kb3 Chloe Roberts PA-C PANelia Horvath Clarissa, RN RN cm10 Christine Oseguera ra3 Corrections: (The following items were deleted from the chart) 18:58 18:55 BP 113 / 66; Pulse 18bpm; Resp 71bpm; Pulse Ox 99% 2 lpm Nasal Cannula; hb hb
--- NOTE | 2024-01-23 18:17 | RAD REPORT ---
EXAM DESCRIPTION: Jaron Marie And Katy (2 Views)01/23/2024 5:40 pm CLINICAL HISTORY: sob COMPARISON: 2021 FINDINGS: Lungs are markedly hyperaerated The lungs appear clear of acute infiltrate. The heart is normal size IMPRESSION: Hyperaerated lungs compatible with reactive airway disease
--- NOTE | 2024-01-23 18:25 | P.HP ---
Certification for Inpatient Patient admitted to: Inpatient With expected LOS: >2 Midnights Practitioner: I am a practitioner with admitting privileges, knowledge of patient current condition, hospital course, and medical plan of care. Services: Services provided to patient in accordance with Admission requirements found in Title 42 Section 412.3 of the Code of Federal Regulations Patient History Date of Service: 01/23/24 Reason for admission: SOB History of Present Illness: 28 yrs old Male with a past medical history of asthma on albuterol inhalers and nebulizers brought to ER with shortness of breath which has been going on for the last 2 days and has been progressively worsening. Denies any chest pain or shortness of breath. Denies any fever or chills. Associated with cough with mucoid expectoration. No nausea vomiting or diarrhea. No sick contacts. Patient denies any exposure to COVID . Patient states that shortness of breath worsens with light activity. The patient's shortness of breath is aggravated by coughing, exertion, light activity, talking. The patient has experienced similar episodes in the past, multiple times. Patient was assessed in the ER and was admitted for further management of asthma exacerbation Allergies No Known Allergies Allergy (Unverified 01/19/19 14:18) Home medications list reviewed: Yes Home Medications: Albuterol Sulfate [Albuterol Sulfate Hfa] 2 inh PO Q4HP PRN #1 hfa.aer.ad 01/20/19 Budesonide/Formoterol Fumarate [Symbicort 160-4.5 Mcg Inhaler] 2 puff IH BID #1 hfa.aer.ad 01/20/19 Loratadine [Claritin] 10 mg PO DAILY 01/23/24 - Past Medical/Surgical History Diabetic: No Past Medical History: Reviewed- Non-Contributory -: asthma Past Surgical History: Reviewed- Non-Contributory - Family History Family History: Reviewed- Non-Contributory - Social History Smoking Status: Never smoker Review of Systems 10-point ROS is otherwise unremarkable Physical Examination - Vital Signs Temperature: 98.1 F Blood Pressure: 146/68 Pulse: 84 Respirations: 18 Pulse Ox (%): 94 - Physical Exam General: Alert, Oriented x3, Mild distress HEENT: Atraumatic, Normocephalic Neck: Supple, 2+ carotid pulse no bruit Respiratory: Diminished, Expiratory wheezes Cardiovascular: Normal pulses, Regular rate/rhythm, Normal S1 S2 Capillary refill: <2 Seconds Gastrointestinal: Soft and benign, W/out hepatosplenomegaly Musculoskeletal: No clubbing, No swelling Integumentary: No rashes, No tenderness/swelling, No erythema Neurological: Normal speech, Normal strength at 5/5 x4 extr Lymphatics: No axilla or inguinal lymphadenopathy - Studies Laboratory Data (last 24 hrs) 01/23/24 01/23/24 16:17 16:17 WBC 7.50 Hgb 15.1 Hct 46.0 Plt Count 227 Sodium 139 Potassium 4.5 BUN 14 Creatinine 0.91 Glucose 104 Total Bilirubin 0.8 AST 21 ALT 28 Alkaline Phosphatase 39 L Microbiology Data (last 24 hrs): 01/23/24 16:40 Nasopharnyx Influenza Type A Antigen Screen - Final 01/23/24 16:40 Nasopharnyx Influenza Type B Antigen Screen - Final Assessment and Plan - Plan Asthma exacerbation Monitor closely on telemetry Bronchodilators started Started on steroids Bronchodilators as needed Oxygen supplementation Wean down oxygen requirement GI/DVT prophylaxis Advanced directive full code Discharge Plan: Home Plan to discharge in: 48 Hours - Advance Directives Does patient have a Living Will: No Does patient have a Durable POA for Healthcare: No - Code Status/Comfort Care Code Status: Full Code Time Spent Managing Pts Care (In Minutes): 48
[2024-01-23] MEDS ORDERED: ALBUTEROL 2.5 MG/3 ML NEB SOL NEB PRN (18:26)
[2024-01-23] MEDS ORDERED: ACETAMINOPHEN 325 MG TABLET PO PRN (18:26)
[2024-01-23] MEDS ORDERED: ONDANSETRON 4 MG/2 ML VIAL IV PRN (18:26)
[2024-01-23] MEDS: IPRATROPIUM BROM 0.5MG/2.5ML NEB SCH (19:00)
[2024-01-23] MEDS: ALBUTEROL 2.5 MG/3 ML NEB SOL NEB SCH (19:00)
[2024-01-23 21:55] VITALS: BMI 21.9
[2024-01-24 03:50] LABS: Specific Gravity 1.011 (1.005-1.030); Sqamous Epithelial None Seen /HPF (None Seen); Urine Bacteria None Seen /HPF (<20); Urine Bilirubin NEGATIVE (Negative); Urine Blood Negative (Negative); Urine Clarity Clear (Clear); Urine Color Colorless (Yellow); Urine Culture Reflex Order NOT NEEDED; Urine Glucose 4+ (Over) (Negative); Urine Ketones NEGATIVE (Negative); Urine Microscopic Reflex YN ORDER UMIC; Urine Mucus Slight /HPF (None Seen); Urine Nitrite NEGATIVE (Negative); Urine Protein NEGATIVE (Negative); Urine RBC <5 /HPF (None Seen); Urine Urobilinogen Normal (Normal); Urine WBC <5 /HPF (<5)
[2024-01-24 06:10] LABS: Absolute Lymphocytes (CBC) 0.8 K/uL (0.7-4.9); Absolute Monocytes 0.5 K/uL (0.1-1.3); Basophils % 0.2 % (0-1.3); Eosinophils % 0.1 % (0-4.4); Hematocrit 40.3 % (39.6-49.0); Hemoglobin 13.8 g/dL (13.6-17.9); Lymphocytes % 6.6 % (15.3-44.8); MCH 31.9 pg (27.0-35.0); MCHC 34.2 g/dL (32.0-36.0); MCV 93.5 fL (80-100); MPV 8.9 fL (7.6-11.3); Monocytes % 4.1 % (3.3-12.3); Nucleated Red Blood Cells % 0.1 % (0-0); Platelets 223 thou/uL (152-406); RBC Red Blood Cell Count 4.31 M/uL (4.33-5.43); Red Cell Distribution Width 13.8 % (12.1-15.2)
[2024-01-24 06:19] LABS: Albumin/Globulin Ratio 1.2 (1.1-1.8); Anion Gap 9.4 mEq/L (5.0-15.0); Bilirubin Total 0.6 mg/dL (0.2-1.0); Globulin 3.4 g/dL (2.3-3.5); Potassium 4.4 mEq/L (3.5-5.1); Protein, Total 7.4 g/dL (6.4-8.2)
[2024-01-24 08:40] LABS: Blood Morphology Comment NOT SEEN (NOT SEEN); Platelet Estimate ADEQ; White Blood Cell Scan OK (OK)
--- NOTE | 2024-01-24 08:48 | P.PN ---
Date of Service: 01/24/24 subjective Prior to seeing patient patient left AMA Review of Systems na Assessment and Plan Asthma exacerbation
--- NOTE | 2024-01-24 08:50 | P.DS ---
Admission Date: 01/23/24 Discharge Date: 01/24/24 Disposition: ROUTINE DISCHARGE Reason for Admission: SOB Brief History of Present Illness: 28 yrs old Male with a past medical history of asthma on albuterol inhalers and nebulizers brought to ER with shortness of breath which has been going on for the last 2 days and has been progressively worsening. Denies any chest pain or shortness of breath. Denies any fever or chills. Associated with cough with mucoid expectoration. No nausea vomiting or diarrhea. No sick contacts. Patient denies any exposure to COVID . Patient states that shortness of breath worsens with light activity. The patient's shortness of breath is aggravated by coughing, exertion, light activity, talking. The patient has experienced similar episodes in the past, multiple times. Patient was assessed in the ER and was admitted for further management of asthma exacerbation - Physical Exam General: Alert, Oriented x3, no acute distress HEENT: Atraumatic, Normocephalic Neck: Supple, 2+ carotid pulse no bruit Respiratory: Diminished, Expiratory wheezes Cardiovascular: Normal pulses, Regular rate/rhythm, Normal S1 S2 Capillary refill: <2 Seconds Gastrointestinal: Soft and benign, W/out hepatosplenomegaly Musculoskeletal: No clubbing, No swelling Integumentary: No rashes, No tenderness/swelling, No erythema Neurological: Normal speech, Normal strength at 5/5 x4 extr Lymphatics: No axilla or inguinal lymphadenopathy Hospital Course: 28 yrs old Male with a past medical history of asthma on albuterol inhalers and nebulizers brought to ER with shortness of breath which has been going on for the last 2 days and has been progressively worsening. Denies any chest pain or shortness of breath. Denies any fever or chills. Associated with cough with mucoid expectoration. Treated with steroids, oxygen, nebulizers. Condition improved with treatment plan, discharged home on steroids, refill home inhalers, tolerating diet, follow-up with primary care in 1 week. Assessment Asthma exacerbation improved with nebs, oxygen, steroids, Discharged home on p.o. steroids, nebulizers, inhalers, Continue home medicines as previously prescribed GOAL: Clear understanding of disease process INSTRUCTIONS: Physician Discharge Instructions: -Follow-up with PCP in 1 to 2 weeks -Please call Dr. Yi at [phone] if any questions regarding hospital stay -Please call nursing station at [phone] if any nursing or medication questions -Return to the emergency room if symptoms worsen Diet: ADA, low sodium Activity: Fall precautions Vital Signs/Physical Exam: Temp Pulse Resp BP Pulse Ox 98.3 F 71 16 123/58 L 96 01/24/24 04:00 01/24/24 04:00 01/24/24 04:00 01/24/24 04:00 01/24/24 04:00 Laboratory Data at Discharge: WBC 12.40 thou/uL (4.3-10.9) H 01/24/24 05:34 Hgb 13.8 g/dL (13.6-17.9) D 01/24/24 05:34 Hct 40.3 % (39.6-49.0) 01/24/24 05:34 Plt Count 223 thou/uL (152-406) 01/24/24 05:34 Sodium 138 mEq/L (136-145) 01/24/24 05:34 Potassium 4.4 mEq/L (3.5-5.1) 01/24/24 05:34 BUN 13 mg/dL (7-18) 01/24/24 05:34 Creatinine 0.75 mg/dL (0.70-1.30) 01/24/24 05:34 Glucose 138 mg/dL (74-106) H 01/24/24 05:34 Total Bilirubin 0.6 mg/dL (0.2-1.0) 01/24/24 05:34 AST 14 U/L (15-37) L 01/24/24 05:34 ALT 25 U/L (16-61) 01/24/24 05:34 Alkaline Phosphatase 38 U/L (45-117) L 01/24/24 05:34 Home Medications: Albuterol Sulfate [Albuterol Sulfate Hfa] 2 inh PO Q4HP PRN #1 hfa.aer.ad 01/20/19 Budesonide/Formoterol Fumarate [Symbicort 160-4.5 Mcg Inhaler] 2 puff IH BID #1 hfa.aer.ad 01/20/19 Loratadine [Claritin] 10 mg PO DAILY 01/23/24 Diet: AHA Activity: Fall precautions Followup: NONE,NONE [Primary Care Provider] - Time spent managing pt's care (in minutes): 35
[2024-01-24 08:51] VITALS: O2SAT 99
[2024-01-24] MEDS ORDERED: ENOXAPARIN 40 MG/0.4 ML SQ SCH (09:00)
[2024-01-24 09:09] VITALS: BP 135/62; TEMP 98.8
== END 2024-01-24 09:41 | disposition left against medical advice (07) | DRG 203 ==
LOC: ER 15:26 → ERHOLD 18:26 → 2ND 19:34
PROVIDERS: ADMIT Family Medicine; ATTEND Hospitalist
DX: J45.41 Moderate persistent asthma with (acute) exacerbation (principal); Z91.09 Other allergy status, other than to drugs and biological substances; Z53.29 Procedure and treatment not carried out because of patient's decision for other reasons; Z79.899 Other long term (current) drug therapy
CPT/HCPCS: 36415; 71046; 80053; 81001; 85025; 87804; 87811; 94640; 94760; 96365; 96366; 96375; 99285; J0696; J2919; J3475; J7030; J7512; J7613; J7644

== ENCOUNTER 2024-04-19 08:30 | Emergency (ER) | payer SELFPAY ==
--- OUTSIDE RECORDS SUMMARY | 2024-04-19 08:34 | XMS REPORT | Continuity of Care Document ---
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 Livestock Name Role Phone Unavailable Unavailable Unavailable Problems Condition Name Condition Details Condition Category Status Onset Date Resolution Date Last Treatment Date Treating Clinician Comments Source Costochond ral chest pain Costochond ral chest pain Problem Active [facility] Allergic rhinitis, unspecifie d Allergic rhinitis, unspecifie d Problem Active [facility] Asthma Asthma Problem Active [facility] Allergies, Adverse Reactions, Alerts Allergy Name Allergy Type Status Severity Reaction(s) Onset Date Inactive Date Treating Clinician Comments Source Pet dander Adverse Reaction Active shortness of breath [facility] Medications Ordered Medication Name Filled Medication Name Start Date Stop Date Current Medication? Ordering Clinician Indication Dosage Frequency Signature (SIG) Comments Components Source Symbicort Symbicort 07-08 00:00: 00 11-05 00:00 :00 No Cydney Horry 2 puffs Commo n [facility] Albuterol Sulfate HFA Albuterol Sulfate HFA Yes Cydney Horry 2 puffs a s needed [facility] Encounters Start Date/Time End Date/Time Encounter Type Admission Type Attending Clinicians Care Facility Care Department Encounter ID Source 2018-10-01 10:30:00 2018-10-01 10:30:00 Outpatient [facility] [id number] [facility] 2018-08-09 11:30:00 2018-08-09 11:30:00 Outpatient [facility] [id number] [facility] 2018-07-12 14:13:00 2018-07-12 14:13:00 Outpatient [facility] [id number] [facility] 2018-07-08 09:30:00 2018-07-08 09:30:00 Outpatient [facility] [id number] [facility]
[2024-04-19] MEDS ORDERED: ALBUTEROL 2.5 MG/3 ML NEB SOL ONE ×2 (09:02→09:48)
[2024-04-19] MEDS ORDERED: IPRATROPIUM BROM 0.5MG/2.5ML ONE (09:02)
--- NOTE | 2024-04-19 09:22 | RAD REPORT ---
Procedure: Chest Single View HISTORY: Shortness of breath COMPARISON: January 2024 FINDINGS: The lungs appear clear of acute infiltrate.. Lungs are markedly hyperaerated. No significant pleural effusion noted. The heart is normal size. IMPRESSION: Markedly hyperaerated lungs consistent with reactive airway disease
[2024-04-19] MEDS ORDERED: METHYLPREDNISOLONE 125 MG INJ ONE (09:34)
[2024-04-19 09:56] LABS: Absolute Basophils 0.1 K/uL (0-0.5); Absolute Eosinophils 0.6 K/uL (0-0.5); Absolute Lymphocytes (CBC) 2.2 K/uL (0.7-4.9); Absolute Monocytes 0.7 K/uL (0.1-1.3); Absolute Neutrophil 3.1 K/uL (1.8-8.0); Basophils % 0.9 % (0-1.3); Eosinophils % 8.7 % (0-4.4); Lymphocytes % 32.5 % (15.3-44.8); MCH 31.8 pg (27.0-35.0); MCHC 34.1 g/dL (32.0-36.0); MPV 7.9 fL (7.6-11.3); Monocytes % 10.5 % (3.3-12.3); Neutrophils % 47.4 % (41.7-73.7); Nucleated Red Blood Cells % 0.1 % (0-0); Platelets 266 thou/uL (152-406); RBC Red Blood Cell Count 4.73 M/uL (4.33-5.43)
[2024-04-19 10:02] LABS: SARS-CoV-2 Antigen CONTROL BLUE LINE VIS/BG OK; SARS-CoV-2 Antigen Rapid Res Negative (Negative)
[2024-04-19 10:14] LABS: Albumin 3.9 g/dL (3.4-5.0); Anion Gap 6.9 mEq/L (5.0-15.0); Bilirubin Total 0.6 mg/dL (0.2-1.0); Globulin 3.8 g/dL (2.3-3.5); Potassium 3.9 mEq/L (3.5-5.1); Protein, Total 7.7 g/dL (6.4-8.2)
--- NOTE | 2024-04-19 11:27 | EDPHYS ---
Physician Documentation [facility] Name: Reggie Calvo Age: 29 yrs Sex: Male : 1995 Arrival Date: 04/19/2024 Time: 08:30 Bed 8 Private MD: ED Physician Pradeep Pettit HPI: 04/19 15:49 This 29 yrs old Male presents to ER via Ambulatory with complaints of Breathing rt Difficulty. 15:49 Patient presents to the ED with dyspnea for the past 3 days. Does report a history of rt asthma, states that his symptoms have not been adequately improved with nebulizer treatments. Reports a tightness to his chest and a cough but denies other acute complaints at this time, symptoms are moderate in severity, no other aggravating alleviating factors.. Historical: - Allergies: 08: cats and dogs; ss - PMHx: :57 Asthma; ss - Immunization history:: Adult Immunizations unknown. 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 - Social history:: Smoking status: Patient denies any tobacco usage or history of. - Family history:: not pertinent. ROS: 15:49 Constitutional: Negative for fever, chills, and weight loss, Cardiovascular: Negative rt for chest pain, palpitations, and edema, Abdomen/GI: Negative for abdominal pain, nausea, vomiting, diarrhea, and constipation, MS/Extremity: Negative for injury and deformity, Skin: Negative for injury, rash, and discoloration, Neuro: Negative for headache, weakness, numbness, tingling, and seizure, 15:49 Respiratory: Positive for cough, shortness of breath, wheezing, Exam: 15:49 Constitutional: This is a well developed, well nourished patient who is awake, alert, rt and in no acute distress. Head/Face: Normocephalic, atraumatic. Chest/axilla: Normal chest wall appearance and motion. Nontender with no deformity. No lesions are appreciated. Cardiovascular: Regular rate and rhythm with a normal S1 and S2. No gallops, murmurs, or rubs. Normal PMI, no JVD. No pulse deficits. Abdomen/GI: Soft, non-tender, with normal bowel sounds. No distension or tympany. No guarding or rebound. No evidence of tenderness throughout. Skin: Warm, dry with normal turgor. Normal color with no rashes, no lesions, and no evidence of cellulitis. MS/ Extremity: Pulses equal, no cyanosis. Neurovascular intact. Full, normal range of motion. Neuro: Awake and alert, GCS 15, oriented to person, place, time, and situation. Cranial nerves II-XII grossly intact. Motor strength 5/5 in all extremities. Sensory grossly intact. Cerebellar exam normal. Normal gait. 15:49 Respiratory: Diminished breath sounds with wheezes heard in all lung serrano, moderate respiratory distress, Vital Signs: 08:56 BP 152 / 85; Pulse 83; Resp 30; Pulse Ox 96% on R/A; Weight 54.43 kg; Height 5 ft. 5 ss in. ; Pain 0/10; 09:00 BP 120 / 75; Pulse 78; Resp 19; Pulse Ox 99% ; ko1 09:08 Temp 98.1(TE); ss 12:09 BP 124 / 78; Pulse 72; Resp 16; Pulse Ox 99% ; ko1 08:56 Body Mass Index 19.97 (54.43 kg, 165.1 cm) ss 08:56 Pain Scale: Adult ss MDM: 08:55 Medical Screening Exam initiated rt 15:49 Differential diagnosis: Asthma, pneumonia. Data reviewed: vital signs, nurses notes, rt lab test result(s), radiologic studies. Consideration of Admission/Observation Escalation of care including admission/observation considered. Symptoms have significantly improved, lungs are clear at the time of discharge. Patient feels much better, return for worsening symptoms.. I considered the following discharge prescriptions or medication management in the emergency department Medications were administered in the Emergency Department. See MAR. Independent interpretation of the following test(s) in the Emergency Department X-Ray: My interpretation is Hyperinflated lungs without infiltrate seen on interpretation of x-ray images. Test considered but Not performed: CT: Low suspicion for pulmonary embolus, CT angiogram not indicated. Counseling: I had a detailed discussion with the patient and/or guardian regarding the historical points, exam findings, and any diagnostic results supporting the discharge/admit diagnosis, lab results, radiology results, the need for outpatient follow up, to return to the emergency department if symptoms worsen or persist or if there are any questions or concerns that arise at home. Response to treatment: the patient's symptoms have markedly improved after treatment. 04/19 09:39 Order name: SARS-COV-2 Antigen Rapid; Complete Time: 10:45 EDMS 11 09:39 Order name: Influenza Screen (A ; Complete Time: 10:45 EDMS 04/19 09:52 Order name: Comprehensive Metabolic Panel; Complete Time: 10:45 EDMS 11 09:52 Order name: CBC with Automated Diff; Complete Time: 10:45 EDMS 11 09:13 Order name: Chest Single View; Complete Time: 09:30 EDMS Administered Medications: 09:05 Drug: DuoNeb Nebulize (3:1) (2.5 mg - 0.5 mg) 3 ml Nebulizer once Route: Nebulizer; kb3 09:35 Follow up: Response: No adverse reaction ko1 10:10 Drug: MethylPrednisoLONE IVP 125 mg IVP once Route: IVP; Site: right antecubital; ko1 10:25 Follow up: Response: No adverse reaction ko1 Disposition Summary: 04/19/24 11:26 Discharge Ordered Notes: Location: Home rt Problem: new rt Symptoms: have improved rt Condition: Stable rt Diagnosis - Asthma exacerbation rt Followup: rt - With: Private Physician - When: 2 - 3 days - Reason: Discharge Instructions: - Discharge Summary Sheet rt - Asthma Attack rt Forms: - Medication Reconciliation Form rt - Antibiotic Education rt - Prescription Opioid Use rt - Patient Portal Instructions rt - Leadership Thank You Letter rt Prescriptions: - Symbicort 80-4.5 mcg/actuation Inhalation HFA Aerosol Inhaler - inhale 2 puff INHALATION route every 12 hours; 1 Each; Refills: 0, Product rt Selection Permitted - albuterol sulfate 2.5 mg /3 mL (0.083 %) Inhalation Solution for Nebulization - nebulize 3 milliliter INHALATION route every 4 hours as needed for shortness of rt breath or wheezing; 120 milliliter; Refills: 0, Product Selection Permitted - albuterol sulfate 90 mcg/actuation Inhalation HFA Aerosol Inhaler - inhale 2 puff INHALATION route every 4 hours as needed for shortness of breath rt or wheezing; 2 Each; Refills: 0, Product Selection Permitted - Prednisone 20 mg Oral Tablet - take 2 tablets ORAL route once daily for 5 days; 10 tablet; Refills: 0, Product rt Selection Permitted Signatures: Dispatcher [employer] EDSC Kate Lynch RN RN ss Tala Cochran RN RN kb3 Maria L Blair, RN RN ko1 Pradeep Pettit MD MD rt Corrections: (The following items were deleted from the chart) 10:55 10:52 SARS-COV-2 Antigen Rapid+I.LAB.BRZ ordered. EDMS EDMS 11:04 10:52 Chest Single View+RAD.RAD.BRZ ordered. EDMS EDMS 11:40 10:52 CBC+H.LAB.BRZ ordered. EDMS EDMS 11:41 10:52 COMPREHENSIVE METABOLIC PANEL+C.LAB.BRZ ordered. EDMS EDMS 11:41 10:52 Influenza Screen (A \T\ B)+BA.LAB.BRZ ordered. EDMS EDMS
--- NOTE | 2024-04-19 11:27 | ER ---
Nurse's Notes [facility] Name: Reggie Calvo Age: 29 yrs Sex: Male : 1995 Arrival Date: 04/19/2024 Time: 08:30 Bed 8 Private MD: Diagnosis: Asthma exacerbation Presentation: 04/19 08:56 Chief complaint: Patient states: ASTHMA EXACERBATION x 2-3 days that has been ss unrelieved by nebulizer treatments at home. Coronavirus screen: Client denies travel out of the [place] in the last 14 days. Ebola Screen: Patient denies exposure to infectious person. Patient denies travel to an Ebola-affected area in the 21 days before illness onset. Initial Sepsis Screen: Does the patient meet any 2 criteria? No. Patient's initial sepsis screen is negative. Does the patient have a suspected source of infection? No. Patient's initial sepsis screen is negative. Risk Assessment: Do you want to hurt yourself or someone else? Patient reports no desire to harm self or others. Onset of symptoms was April 16, 2024. 08:56 Method Of Arrival: Ambulatory ss 08:56 Acuity: LINDA 2 ss Triage Assessment: 10:30 General: Appears uncomfortable. Respiratory: Reports shortness of breath at rest the ko1 patient has moderate shortness of breath. 12:10 Respiratory: Onset: The symptoms/episode began/occurred. ko1 Historical: - Allergies: 08:57 cats and dogs; ss - PMHx: 08:57 Asthma; ss - Immunization history:: Adult Immunizations unknown. 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 - Social history:: Smoking status: Patient denies any tobacco usage or history of. - Family history:: not pertinent. Screenin:[address] [facility] ED Fall Risk Assessment (Adult) History of falling in the last 3 months, ko1 including since admission No falls in past 3 months (0 pts) Confusion or Disorientation No (0 pts) Intoxicated or Sedated No (0 pts) Impaired Gait No (0 pts) Mobility Assist Device Used No (0 pt) Altered Elimination No (0 pt) Score/Fall Risk Level 0 - 2 = Low Risk Oriented to surroundings, Maintained a safe environment, Educated pt \T\ family on fall prevention, incl call for assistance when getting out of bed, Assessed \T\ reinforced patient's understanding of fall precautions, Hourly rounding (assess needs \T\ fall precautionary measures) done. Abuse screen: Denies threats or abuse. Denies injuries from another. Nutritional screening: No deficits noted. Tuberculosis screening: No symptoms or risk factors identified. Assessment: 09:00 General: Appears uncomfortable, Behavior is calm, cooperative, appropriate for age. ko1 Pain: Denies pain. Neuro: No deficits noted. Cardiovascular: Rhythm is regular. Respiratory: Airway is patent Respiratory effort is even, Breath sounds with wheezes bilaterally. GI: No deficits noted. : No deficits noted. EENT: No deficits noted. Derm: No deficits noted. Musculoskeletal: No deficits noted. Vital Signs: 08:56 BP 152 / 85; Pulse 83; Resp 30; Pulse Ox 96% on R/A; Weight 54.43 kg; Height 5 ft. 5 ss in. ; Pain 0/10; 09:00 BP 120 / 75; Pulse 78; Resp 19; Pulse Ox 99% ; ko1 09:08 Temp 98.1(TE); ss 12:09 BP 124 / 78; Pulse 72; Resp 16; Pulse Ox 99% ; ko1 08:56 Body Mass Index 19.97 (54.43 kg, 165.1 cm) ss 08:56 Pain Scale: Adult ss ED Course: 08:32 Patient arrived in ED. mg5 08:55 Pradeep Pettit MD is Attending Physician. rt 08:57 Triage completed. ss 08:57 Arm band placed on right wrist. ss 09:00 Patient has correct armband on for positive identification. Bed in low position. Call ko1 light in reach. Side rails up X 1. Provided Education on: meds. Pulse ox on. NIBP on. Door closed. Noise minimized. Lights dimmed. Warm blanket given. Pillow given. 09:00 No provider procedures requiring assistance completed. ko1 09:13 Chest Single View In Process Unspecified. EDMS 10:00 Initial lab(s) drawn, by ED staff, sent to lab. COVID swab sent to lab. Flu and/or RSV ko1 swab sent to lab. 10:10 Maria L Blair, EVELINA is Primary Nurse. ko1 11:33 Inserted saline lock: 20 gauge in right antecubital area, using aseptic technique. ko1 Blood collected. Flushed with 10 mL NS. 12:09 IV discontinued, intact, bleeding controlled, No redness/swelling at site. Pressure ko1 dressing applied. Administered Medications: 09:05 Drug: DuoNeb Nebulize (3:1) (2.5 mg - 0.5 mg) 3 ml Nebulizer once Route: Nebulizer; kb3 09:35 Follow up: Response: No adverse reaction ko1 10:10 Drug: MethylPrednisoLONE IVP 125 mg IVP once Route: IVP; Site: right antecubital; ko1 10:25 Follow up: Response: No adverse reaction ko1 Medication: 09:00 VIS not applicable for this client. ko1 Outcome: 11:26 Discharge ordered by . rt 12:09 Discharged to home ambulatory, ko1 12:09 Condition: stable 12:09 Discharge instructions given to patient, Instructed on discharge instructions, follow up and referral plans. medication usage, Demonstrated understanding of instructions, follow-up care, medications, Prescriptions given X 4, 12:27 Patient left the ED. ko1 Signatures: Dispatcher [employer] EDMS Kate Lynch RN RN Tala Cochran RN RN kb3 Maria L Blair, EVELINA RN ko1 Pradeep Pettit MD MD rt Liliya Wall mg5
[2024-04-19 12:46] VITALS: O2SAT 99
[2024-04-19 12:52] VITALS: TEMP 98.1
[2024-04-19 12:53] VITALS: BP 124/78
== END 2024-04-19 12:27 | disposition home or self-care (01) ==
LOC: ER 08:30
DX: J45.901 Unspecified asthma with (acute) exacerbation (principal)
CPT/HCPCS: 36415; 71045; 80053; 85025; 87804; 87811; J2919; J7613; J7644

== ENCOUNTER 2024-05-28 23:42 | Emergency (ER) | payer SELFPAY ==
--- OUTSIDE RECORDS SUMMARY | 2024-05-28 23:45 | XMS REPORT | Continuity of Care Document ---
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 Allergic rhinitis, unspecifie d Allergic rhinitis, unspecifie d Problem Active [facility] Asthma Asthma Problem Active [facility] Allergies, Adverse Reactions, Alerts Allergy Name Allergy Type Status Severity Reaction(s) Onset Date Inactive Date Treating Clinician Comments Source Pet dander Adverse Reaction Active shortness of breath [facility] Medications Ordered Medication Name Filled Medication Name Start Date Stop Date Current Medication? Ordering Clinician Indication Dosage Frequency Signature (SIG) Comments Components Source Symbicort Symbicort 07-08 00:00: 00 11-05 00:00 :00 No Cydney Cordova 2 puffs Commo n [facility] Albuterol Sulfate HFA Albuterol Sulfate HFA Yes Cydney Cordova [address] [facility] Encounters Start Date/Time End Date/Time Encounter Type Admission Type Attending Clinicians Care Facility Care Department Encounter ID Source 2018-10-01 10:30:00 2018-10-01 10:30:00 Outpatient [facility] [id number] [facility] 2018-08-09 11:30:00 2018-08-09 11:30:00 Outpatient [facility] [id number] [facility] 2018-07-12 14:13:00 2018-07-12 14:13:00 Outpatient [facility] [id number] [facility] 2018-07-08 09:30:00 2018-07-08 09:30:00 Outpatient [facility] [id number] [facility]
[2024-05-29] MEDS ORDERED: IPRATROPIUM BROM 0.5MG/2.5ML ONE (00:10)
[2024-05-29] MEDS ORDERED: ALBUTEROL 2.5 MG/3 ML NEB SOL ONE (00:10)
[2024-05-29] MEDS ORDERED: MAGNESIUM SULFATE 1 gm IVPB 1 GM/100 ML BAG IV ONE (00:11)
[2024-05-29] MEDS ORDERED: METHYLPREDNISOLONE 125 MG INJ ONE (00:11)
--- NOTE | 2024-05-29 02:00 | ER ---
Nurse's Notes [facility] Name: Reggie Calvo Age: 29 yrs Sex: Male : 1995 Arrival Date: 05/28/2024 Time: 23:42 Bed 18 Private MD: Diagnosis: Unspecified asthma with (acute) exacerbation Presentation: 05/29 00:00 Chief complaint: Patient states: asthma exacerbation X2 days and worsening. no relief lg3 with home treatments. Coronavirus screen: Client denies travel out of the [place] in the last 14 days. At this time, the client does not indicate any symptoms associated with coronavirus-19. Ebola Screen: No symptoms or risks identified at this time. Initial Sepsis Screen: Does the patient meet any 2 criteria? No. Patient's initial sepsis screen is negative. Does the patient have a suspected source of infection? No. Patient's initial sepsis screen is negative. Risk Assessment: Do you want to hurt yourself or someone else? Patient reports no desire to harm self or others. Onset of symptoms was May 27, 2024. 00:00 Method Of Arrival: Ambulatory lg3 00:00 Acuity: LINDA 4 lg3 Triage Assessment: 00:02 General: Appears in no apparent distress. uncomfortable, Behavior is calm, cooperative. lg3 Pain: Denies pain. EENT: No deficits noted. No signs and/or symptoms were reported regarding the EENT system. Neuro: No deficits noted. Calero Agitation-Sedation Scale (RASS): 0 - Alert and Calm Level of Consciousness is awake, alert, obeys commands, Oriented to person, place, time, situation. Cardiovascular: No deficits noted. Denies chest pain, Capillary refill < 3 seconds Clubbing of nail beds is absent JVD is absent Patient's skin is warm and dry. Respiratory: Reports shortness of breath Airway is patent Respiratory effort is pursed lip, Onset: The symptoms/episode began/occurred yesterday, the patient has moderate shortness of breath. GI: No deficits noted. No signs and/or symptoms were reported involving the gastrointestinal system. : No signs and/or symptoms were reported regarding the genitourinary system. Derm: No deficits noted. No signs and/or symptoms reported regarding the dermatologic system. Skin is intact, is healthy with good turgor, Skin is dry, Skin is normal, Skin temperature is warm. Musculoskeletal: No deficits noted. No signs and/or symptoms reported regarding the musculoskeletal system. Circulation, motion, and sensation intact. Range of motion: intact in all extremities. Historical: - Allergies: 00:02 cats and dogs; lg3 - PMHx: 00:02 Asthma; lg3 - PSHx: 00:02 None; lg3 - Immunization history:: Adult Immunizations up to date. - Infectious Disease History:: Denies. - Social history:: Smoking status: Patient denies any tobacco usage or history of. Patient uses alcohol, every other day. street drugs, marijuana. Screenin:[address] [facility] ED Fall Risk Assessment (Adult) History of falling in the last 3 months, br2 including since admission No falls in past 3 months (0 pts) Confusion or Disorientation No (0 pts) Intoxicated or Sedated No (0 pts) Impaired Gait No (0 pts) Mobility Assist Device Used No (0 pt) Altered Elimination No (0 pt) Score/Fall Risk Level 0 - 2 = Low Risk Oriented to surroundings. Nutritional screening: No deficits noted. Tuberculosis screening: No symptoms or risk factors identified. 00:25 Abuse screen:. br2 Assessment: 00:23 Reassessment: Patient and/or family updated on plan of care and expected duration. Pain br2 level reassessed. Patient is alert, oriented x 3, equal unlabored respirations, skin warm/dry/pink. General: Appears uncomfortable, Behavior is calm, cooperative, anxious. Pain: Denies pain. Neuro: Calero Agitation-Sedation Scale (RASS): 0 - Alert and Calm Level of Consciousness is awake, alert, obeys commands, Oriented to person, place, time, situation. Cardiovascular: Rhythm is regular. Respiratory: Airway is patent Respiratory effort is even, pursed lip, Respiratory pattern is regular, symmetrical, Breath sounds with wheezes bilaterally. in left posterior upper lobe, right posterior upper lobe, left posterior lower lobe, right posterior middle lobe and right posterior lower lobe. GI: No signs and/or symptoms were reported involving the gastrointestinal system. : No signs and/or symptoms were reported regarding the genitourinary system. EENT: No signs and/or symptoms were reported regarding the EENT system. Derm: No signs and/or symptoms reported regarding the dermatologic system. 01:26 Reassessment: Patient and/or family updated on plan of care and expected duration. Pain br2 level reassessed. Patient is alert, oriented x 3, equal unlabored respirations, skin warm/dry/pink. Patient states feeling better. Patient states symptoms have improved. Vital Signs: 00:00 BP 130 / 92; Pulse 82; Resp 19 S; Temp 97.7(O); Pulse Ox 96% on R/A; Weight 56.7 kg lg3 (R); Height 5 ft. 6 in. (R); Pain 0/10; 01:26 BP 132 / 83; Pulse 72; Resp 18; Pulse Ox 94% ; br2 02:20 BP 123 / 75; Pulse 70; Resp 18 S; Pulse Ox 95% on R/A; br2 00:00 Body Mass Index 20.18 (56.70 kg, 167.64 cm) lg3 00:00 Pain Scale: Adult lg3 ED Course: 05/28 23:44 Patient arrived in ED. mr 05/29 00:00 Guillermina Kim FNP-C is PHCP. kb 00:00 David Reyes MD is Attending Physician. kb 00:02 Triage completed. lg3 00:02 Arm band placed on right wrist. lg3 00:05 Jessika Pride, EVELINA is Primary Nurse. br2 00:23 Patient has correct armband on for positive identification. Bed in low position. Call br2 light in reach. Side rails up X 1. Provided Education on: plan of care. 00:23 Inserted saline lock: 22 gauge in right antecubital area, using aseptic technique. br2 Blood collected. Flushed with 10 mL NS. 00:42 PHCP role handed off by Guillermina Kim FNP-C cp 00:42 David Snider PA is PHCP. cp 02:01 XRAY Chest (1 view) In Process Unspecified. EDMS 02:21 No provider procedures requiring assistance completed. IV discontinued, intact, br2 bleeding controlled, No redness/swelling at site. Pressure dressing applied. Administered Medications: 00:22 Drug: MethylPrednisoLONE IVP 125 mg IVP once Route: IVP; Site: right antecubital; br2 01:00 Follow up: Response: No adverse reaction br2 00:22 Drug: Magnesium Sulfate IVPB 1 grams IVPB once over 30 mins Route: IVPB; Infused Over: br2 30 mins; Site: right antecubital; 01:00 Follow up: Response: No adverse reaction; IV Status: Completed infusion; IV Intake: br2 100ml 00:23 Drug: DuoNeb Nebulize (3:1) (2.5 mg - 0.5 mg) 3 ml Nebulizer once Route: Nebulizer; br2 01:00 Follow up: Response: No adverse reaction br2 Medication: 02:22 VIS not applicable for this client. br2 Intake: 01:00 IV: 100ml; Total: 100ml. br2 Outcome: 01:59 Discharge ordered by . hayes 02:21 Discharged to home ambulatory, br2 02:21 Condition: good 02:21 Condition: improved 02:21 Discharge instructions given to patient, Instructed on discharge instructions, follow up and referral plans. medication usage, Demonstrated understanding of instructions, follow-up care, medications, Prescriptions given X 2, 02:22 Patient left the ED. br2 Signatures: Dispatcher [employer] EDMS Guillermina Kim, GABE-C FRONT END ENGINEER-CkAlma Olmedo, Reg Reg mr David Snider, PA PA Riana Aj, RN RN lg3 Jessika Pride, RN RN br2
--- NOTE | 2024-05-29 02:00 | EDPHYS ---
Physician Documentation [facility] Name: Reggie Calvo Age: 29 yrs Sex: Male : 1995 Arrival Date: 05/28/2024 Time: 23:42 Bed 18 Private MD: ED Physician David Reyes HPI: 05/29 00:03 This 29 yrs old Male presents to ER via Ambulatory with complaints of Breathing kb Difficulty. 00:03 Pt is a 29 year old male who presents for cough and wheezing that started 3-4 days ago. kb States he has been using his nebulizer without relief. Today wheezing has been worse. Reports he has been around dogs and cats which normally triggers his asthma.. Historical: - Allergies: 00:02 cats and dogs; lg3 - PMHx: 00:02 Asthma; lg3 - PSHx: 00:02 None; lg3 - Immunization history:: Adult Immunizations up to date. - Infectious Disease History:: Denies. - Social history:: Smoking status: Patient denies any tobacco usage or history of. Patient uses alcohol, every other day. street drugs, marijuana. ROS: 00:03 Constitutional: As per HPI kb Exam: 00:03 Constitutional: This is a well developed, well nourished patient who is awake, alert, kb and in no acute distress. Head/Face: Normocephalic, atraumatic. ENT: Moist Mucous membranes Cardiovascular: Regular rate Skin: Warm, dry with normal turgor. Normal color. MS/ Extremity: Pulses equal, no cyanosis. Neurovascular intact. Full, normal range of motion. Neuro: Awake and alert, GCS 15, oriented to person, place, time, and situation. 00:03 Respiratory: mild respiratory distress is noted, Respirations: labored breathing, that is mild, Breath sounds: wheezing: expiratory that is moderate, is heard diffusely, Vital Signs: 00:00 BP 130 / 92; Pulse 82; Resp 19 S; Temp 97.7(O); Pulse Ox 96% on R/A; Weight 56.7 kg lg3 (R); Height 5 ft. 6 in. (R); Pain 0/10; 01:26 BP 132 / 83; Pulse 72; Resp 18; Pulse Ox 94% ; br2 02:20 BP 123 / 75; Pulse 70; Resp 18 S; Pulse Ox 95% on R/A; br2 00:00 Body Mass Index 20.18 (56.70 kg, 167.64 cm) lg3 00:00 Pain Scale: Adult lg3 MDM: 00:00 Medical Screening Exam initiated kb 00:40 Differential diagnosis: asthma, Bronchitis. Data reviewed: vital signs, nurses notes. kb 01:57 Independent interpretation of the following test(s) in the Emergency Department X-Ray: cp My interpretation is image of chest negative for focal pneumonia. Care significantly affected by the following chronic conditions: asthma. Counseling: I had a detailed discussion with the patient and/or guardian regarding the historical points, exam findings, and any diagnostic results supporting the discharge/admit diagnosis, radiology results, to return to the emergency department if symptoms worsen or persist or if there are any questions or concerns that arise at home. Response to treatment: the patient's symptoms have markedly improved after treatment, and as a result, I will discharge patient. 05/29 00:43 Order name: XRAY Chest (1 view) cp 05/29 00:02 Order name: IV Start; Complete Time: 00:23 kb Administered Medications: 00:22 Drug: MethylPrednisoLONE IVP 125 mg IVP once Route: IVP; Site: right antecubital; br2 01:00 Follow up: Response: No adverse reaction br2 00:22 Drug: Magnesium Sulfate IVPB 1 grams IVPB once over 30 mins Route: IVPB; Infused Over: br2 30 mins; Site: right antecubital; 01:00 Follow up: Response: No adverse reaction; IV Status: Completed infusion; IV Intake: br2 100ml 00:23 Drug: DuoNeb Nebulize (3:1) (2.5 mg - 0.5 mg) 3 ml Nebulizer once Route: Nebulizer; br2 01:00 Follow up: Response: No adverse reaction br2 Disposition Summary: 05/29/24 01:59 Discharge Ordered Notes: Location: Home cp Problem: an acute exacerbation cp Symptoms: have improved cp Condition: Stable cp Diagnosis - Unspecified asthma with (acute) exacerbation cp Followup: cp - With: Private Physician - When: 2 - 3 days - Reason: Recheck today's complaints Discharge Instructions: - Discharge Summary Sheet cp - Asthma, Adult cp Forms: - Medication Reconciliation Form cp - Antibiotic Education cp - Prescription Opioid Use cp - Patient Portal Instructions cp - Leadership Thank You Letter cp Prescriptions: - albuterol sulfate 90 mcg/actuation Inhalation HFA Aerosol Inhaler - inhale 1 puff INHALATION route every 4 to 6 hours as needed for bronchospasm; cp administer via ventilator; 1 unit; Refills: 0, Product Selection Permitted - Prednisone 20 mg Oral Tablet - take 3 tablets ORAL route once daily for 5 days; 15 tablet; Refills: 0, Product cp Selection Permitted Signatures: Dispatcher [employer] EDGuillermina Bui FNP-C FNP-David Nichols PA PA cp Able, Lacie, RN RN lg3 Jessika Pride RN RN br2 Corrections: (The following items were deleted from the chart) 00:43 00:40 Test considered but Not performed: X-ray: CXR considered but wheezing is diffuse, kb pt afebrile with history of asthma. This episode feels similar to previous. kb 00:43 00:43 Chest Single View+RAD.RAD.BRZ ordered. EDMS EDMS
[2024-05-29 02:27] VITALS: TEMP 97.7
[2024-05-29 02:30] VITALS: BP 123/75; O2SAT 95
--- NOTE | 2024-05-29 06:31 | RAD REPORT ---
EXAM: XR Chest, 1 View CLINICAL HISTORY: The patient is 29 years old and is Male; wheezing TECHNIQUE: Frontal view of the chest. COMPARISON: XR Chest dated April 19 2024 FINDINGS: LUNGS: Unremarkable. No consolidation. PLEURAL SPACE: Unremarkable. No pneumothorax. HEART: Unremarkable. No cardiomegaly. MEDIASTINUM: Unremarkable. Normal mediastinal contour. BONES/JOINTS: Unremarkable. No acute fracture. UPPER ABDOMEN: Unremarkable as visualized. IMPRESSION: No acute cardiopulmonary process. Electronically signed by: Monica Disla MD 05/29/2024 02:24 AM [facility] Due to temporary technical issues with the PACS/[employer] reporting system, reports are being maria isabel d by the in-house radiologist without review as a courtesy to ensure prompt reporting the interpreting radiologist is fully responsible for the content of the report. Transcribed Date/Time: 05/29/2024 6:31 AM
== END 2024-05-29 02:22 | disposition home or self-care (01) ==
LOC: ER 23:42
DX: J45.901 Unspecified asthma with (acute) exacerbation (principal)
CPT/HCPCS: 71045; 96365; 96375; 99285; J2919; J3475; J7613; J7644

== ENCOUNTER 2024-06-06 07:32 | Emergency (ER) | payer SELFPAY ==
--- OUTSIDE RECORDS SUMMARY | 2024-06-06 07:34 | XMS REPORT | Continuity of Care Document ---
Author Name Unknown Address [address] [facility] Address [address] [address] [address] [place] [address] Care Team Providers Care Pediatric Nephrologist Name Role Phone Unavailable Unavailable Unavailable Problems Condition Name Condition Details Condition Category Status Onset Date Resolution Date Last Treatment Date Treating Clinician Comments Source Costochond ral chest pain Costochond ral chest pain Problem Active [facility] Allergic rhinitis, unspecifie d Allergic rhinitis, unspecifie d Problem Active [facility] Asthma Asthma Problem Active [facility] Allergies, Adverse Reactions, Alerts Allergy Name Allergy Type Status Severity Reaction(s) Onset Date Inactive Date Treating Clinician Comments Source Pet dander Adverse Reaction Active shortness of breath [facility] Medications Ordered Medication Name Filled Medication Name Start Date Stop Date Current Medication? Ordering Clinician Indication Dosage Frequency Signature (SIG) Comments Components Source Symbicort Symbicort 07-08 00:00: 00 11-05 00:00 :00 No Cydney Conway 2 puffs Commo n [facility] Albuterol Sulfate HFA Albuterol Sulfate HFA Yes Cydney Conway 2 puffs a s needed [facility] Encounters Start Date/Time End Date/Time Encounter Type Admission Type Attending Clinicians Care Facility Care Department Encounter ID Source 2018-10-01 10:30:00 2018-10-01 10:30:00 Outpatient [facility] [id number] [facility] 2018-08-09 11:30:00 2018-08-09 11:30:00 Outpatient [facility] [id number] [facility] 2018-07-12 14:13:00 2018-07-12 14:13:00 Outpatient [facility] [id number] [facility] 2018-07-08 09:30:00 2018-07-08 09:30:00 Outpatient [facility] [id number] [facility]
[2024-06-06] MEDS ORDERED: IPRATROPIUM BROM 0.5MG/2.5ML ONE ×2 (07:41→08:26)
[2024-06-06] MEDS ORDERED: METHYLPREDNISOLONE 125 MG INJ ONE (07:41)
[2024-06-06] MEDS ORDERED: LEVALBUTEROL 1.25 MG/3 ML NEB ONE (07:41)
[2024-06-06] MEDS ORDERED: ALBUTEROL 2.5 MG/3 ML NEB SOL ONE (08:26)
--- NOTE | 2024-06-06 08:46 | RAD REPORT ---
EXAMINATION: ONE VIEW CHEST XR CLINICAL INDICATION: Male, 29 years old.,SOB TECHNIQUE: Frontal chest projection is submitted. Examination is limited by patient positioning and t echnique. COMPARISON: 05/29/2024 FINDINGS: The lungs are well inflated and clear. No pneumothorax or sizable effusion. The heart is normal in s ize. Mediastinal contours are unremarkable. IMPRESSION: No acute intrathoracic abnormalities.
--- NOTE | 2024-06-06 09:23 | ER ---
Nurse's Notes [facility] Name: Reggie Calvo Age: 29 yrs Sex: Male : 1995 Arrival Date: 06/06/2024 Time: 07:32 Bed 13 Private MD: Diagnosis: Moderate persistent asthma with (acute) exacerbation Presentation: 06/06 07:39 Chief complaint: Patient states: ASTHMA ATTACK SINCE LAST PM. Coronavirus screen: At bp this time, the client does not indicate any symptoms associated with coronavirus-19. Ebola Screen: No symptoms or risks identified at this time. Initial Sepsis Screen: Does the patient meet any 2 criteria? No. Patient's initial sepsis screen is negative. Does the patient have a suspected source of infection? No. Patient's initial sepsis screen is negative. Risk Assessment: Do you want to hurt yourself or someone else? Patient reports no desire to harm self or others. Onset of symptoms is unknown. 07:39 Method Of Arrival: Ambulatory bp 07:39 Acuity: LINDA 3 bp Triage Assessment: 07:40 General: Appears distressed, Behavior is cooperative, appropriate for age, anxious. bp Pain: Denies pain. EENT: No deficits noted. Neuro: No deficits noted. Cardiovascular: Rhythm is sinus rhythm. Respiratory: Reports shortness of breath at rest Breath sounds with wheezes bilaterally. GI: No signs and/or symptoms were reported involving the gastrointestinal system. : No signs and/or symptoms were reported regarding the genitourinary system. Derm: No deficits noted. Musculoskeletal: No deficits noted. Historical: - Allergies: 07:40 cats and dogs; bp - Home Meds: 07:40 Albuterol Inhl [Active]; Symbicort inhalation [Active]; bp - PMHx: 07:40 Asthma; bp - Immunization history:: Adult Immunizations up to date. - Infectious Disease History:: Denies. - Social history:: Smoking status: Patient denies any tobacco usage or history of. Screenin:38 [facility] ED Fall Risk Assessment (Adult) History of falling in the last 3 months, kc6 including since admission No falls in past 3 months (0 pts) Confusion or Disorientation No (0 pts) Intoxicated or Sedated No (0 pts) Impaired Gait No (0 pts) Mobility Assist Device Used No (0 pt) Altered Elimination No (0 pt) Score/Fall Risk Level 0 - 2 = Low Risk Oriented to surroundings, Maintained a safe environment, Educated pt \T\ family on fall prevention, incl call for assistance when getting out of bed. Abuse screen: Denies threats or abuse. Denies injuries from another. Nutritional screening: No deficits noted. Tuberculosis screening: No symptoms or risk factors identified. Assessment: 07:38 General: Appears distressed, uncomfortable, well groomed, well developed, Behavior is kc6 cooperative, appropriate for age, anxious. Pain: Complains of pain in chest. Neuro: Level of Consciousness is awake, alert, obeys commands, Oriented to person, place, time, situation, Appropriate for age. GI: No signs and/or symptoms were reported involving the gastrointestinal system. : No signs and/or symptoms were reported regarding the genitourinary system. EENT: No signs and/or symptoms were reported regarding the EENT system. Derm: No signs and/or symptoms reported regarding the dermatologic system. Skin is intact, is healthy with good turgor, Skin is pink, warm \T\ dry. Musculoskeletal: No signs and/or symptoms reported regarding the musculoskeletal system. Circulation, motion, and sensation intact. Capillary refill < 3 seconds, Range of motion: intact in all extremities. 07:38 Cardiovascular: Reports chest pain, shortness of breath, Capillary refill < 3 seconds kc Rhythm is regular. Respiratory: Reports shortness of breath at rest on exertion pain with respiration Airway is patent Trachea midline Respiratory effort is even, gasping, with nasal flaring, pursed lip, with retractions, using tripod position, Respiratory pattern is symmetrical, tachypnea Breath sounds with wheezes bilaterally. Onset: The symptoms/episode began/occurred suddenly, the patient has severe shortness of breath. 08:04 Reassessment: Patient states feeling better. Patient states symptoms have improved. [facility] 08:49 Reassessment: Patient appears in no apparent distress at this time. No changes from kc6 previously documented assessment. Patient and/or family updated on plan of care and expected duration. Pain level reassessed. Patient is alert, oriented x 3, equal unlabored respirations, skin warm/dry/pink. 09:38 Reassessment: Patient appears in no apparent distress at this time. No changes from kc6 previously documented assessment. Patient and/or family updated on plan of care and expected duration. Pain level reassessed. Patient is alert, oriented x 3, equal unlabored respirations, skin warm/dry/pink. Vital Signs: 07:39 Pulse 93; Resp 32; Temp 98.1; Pulse Ox 90% on R/A; Weight 58.97 kg; Height 5 ft. 5 in. ;bp 07:51 BP 130 / 72; Pulse 98; Resp 20 S; Pulse Ox 98% on Nebulizer Mask; kc6 07:39 Body Mass Index 21.63 (58.97 kg, 165.1 cm) bp ED Course: 07:32 Patient arrived in ED. mr 07:37 Swathi Galvez, RN is Primary Nurse. kc6 07:38 Patient has correct armband on for positive identification. Bed in low position. Call kc6 light in reach. Side rails up X 1. residential monitor on. Pulse ox on. NIBP on. Door closed. Noise minimized. Pillow given. 07:38 Oxygen administration via nasal cannula \T\ 2L/min. kc6 07:39 Triage completed. bp 07:40 Arm band placed on. bp 07:48 Celestine Rodriguez MD is Attending Physician. bo1 07:51 Initial Neb Treatment Given as ordered Patient was instructed and evaluated on kc6 procedure Patient tolerated procedure well without adverse effect. Inserted saline lock: 18 gauge in right forearm, using aseptic technique. Blood collected. Flushed with 10 mL NS. 08:12 CXR XRAY In Process Unspecified. EDMS 08:49 Subsequent Neb Treatment Given as ordered Patient was instructed and evaluated on kc6 procedure Patient tolerated procedure well without adverse effect. 09:39 No provider procedures requiring assistance completed. IV discontinued, intact, kc6 bleeding controlled, No redness/swelling at site. Pressure dressing applied. Administered Medications: 07:53 Drug: Levalbuterol Inhalation 1.25 mg Inhalation once Route: Inhalation; kc6 08:03 Follow up: Response: No adverse reaction; Wheezing diminished kc6 07:53 Drug: Ipratropium Inhalation Aerosol 0.5 mg Inhalation once Route: Inhalation; kc6 08:04 Follow up: Response: No adverse reaction; Wheezing diminished kc6 07:53 Drug: MethylPrednisoLONE IVP 125 mg IVP once Route: IVP; Site: right forearm; kc6 08:03 Follow up: Response: No adverse reaction kc6 08:28 Drug: DuoNeb Nebulize (2.5 mg - 0.5 mg) 3 ml Nebulizer once Route: Nebulizer; kc6 Medication: 09:39 VIS not applicable for this client. kc6 Outcome: 09:22 Discharge ordered by . bo1 09:39 Discharged to home ambulatory, with significant other, kc6 09:39 Condition: improved 09:39 Discharge instructions given to patient, Instructed on discharge instructions, follow up and referral plans. medication usage, Demonstrated understanding of instructions, follow-up care, medications, Prescriptions given X 4, 09:40 Patient left the ED. kc6 Signatures: Dispatcher [employer] EDTX Amla Mcadams, Reg Reg Rishi Simpson, RN RN Swathi Trinidad RN RN kc6 Jennifer, MD MD db Sprague1
--- NOTE | 2024-06-06 09:23 | EDPHYS ---
Physician Documentation [facility] Name: Reggie Calvo Age: 29 yrs Sex: Male : 1995 Arrival Date: 06/06/2024 Time: 07:32 Bed 13 Private MD: ED Physician Celestine Rodriguez HPI: 06/06 09:12 This 29 yrs old Male presents to ER via Ambulatory with complaints of Asthma bo1 Exacerbation. 09:14 The patient presents to the emergency department with wheezing, Current therapy: Same bo1 sxs previously but not prescribed any steroids or the Symbicort that he uses. Onset: The symptoms/episode began/occurred gradually, 2 day(s) ago. Severity of symptoms: At their worst the symptoms were moderate in the emergency department the symptoms are unchanged. The patient has experienced similar episodes in the past. Allergies to dogs and cats. Historical: - Allergies: 07:40 cats and dogs; bp - Home Meds: 07:40 Albuterol Inhl [Active]; Symbicort inhalation [Active]; bp - PMHx: 07:40 Asthma; bp - Immunization history:: Adult Immunizations up to date. - Infectious Disease History:: Denies. - Social history:: Smoking status: Patient denies any tobacco usage or history of. ROS: 09:17 Constitutional: Negative for fever, chills, and weight loss bo1 09:17 Neck: Negative for pain with movement, pain at rest, 09:17 Cardiovascular: Negative for chest pain, 09:17 Respiratory: Positive for shortness of breath, on exertion. 09:17 Abdomen/GI: Negative for abdominal pain, 09:17 Skin: Negative for rash, 09:17 All other systems are negative, Exam: 09:18 Constitutional: This is a well developed, well nourished patient who is awake, alert, bo1 and in acute distress. 09:18 Constitutional: The patient appears alert, awake, non-toxic, 09:18 Neck: External neck: is normal, no acute changes, 09:18 Cardiovascular: Rate: normal, Rhythm: regular, Pulses: no pulse deficits are appreciated, 09:18 Respiratory: the patient does not display signs of respiratory distress, Respirations: normal, Breath sounds: decreased breath sounds, wheezing: expiratory that is moderate, 09:18 Musculoskeletal/extremity: DVT Exam: no pain, no swelling, no tenderness, 09:18 Skin: Warm and dry. Vital Signs: 07:39 Pulse 93; Resp 32; Temp 98.1; Pulse Ox 90% on R/A; Weight 58.97 kg; Height 5 ft. 5 in. ;bp 07:51 BP 130 / 72; Pulse 98; Resp 20 S; Pulse Ox 98% on Nebulizer Mask; kc6 07:39 Body Mass Index 21.63 (58.97 kg, 165.1 cm) bp MDM: 07:48 Medical Screening Exam initiated bo1 09:19 Differential diagnosis: acute asthma, reactive airway. Data reviewed: vital signs, bo1 radiologic studies, plain films. Response to treatment: the patient's symptoms have markedly improved after treatment, the patient's condition has returned to base line. ED course: Pt has responded to ER treatments and will be discharged to be managed as an OP. 09:34 Response to treatment: Pt has marked improved to no longer wheezing or SOB. bo1 06/06 07:38 Order name: CXR XRAY; Complete Time: 09:11 bp Administered Medications: 07:53 Drug: Levalbuterol Inhalation 1.25 mg Inhalation once Route: Inhalation; kc6 08:03 Follow up: Response: No adverse reaction; Wheezing diminished kc6 07:53 Drug: Ipratropium Inhalation Aerosol 0.5 mg Inhalation once Route: Inhalation; kc6 08:04 Follow up: Response: No adverse reaction; Wheezing diminished kc6 07:53 Drug: MethylPrednisoLONE IVP 125 mg IVP once Route: IVP; Site: right forearm; kc6 08:03 Follow up: Response: No adverse reaction kc6 08:28 Drug: DuoNeb Nebulize (2.5 mg - 0.5 mg) 3 ml Nebulizer once Route: Nebulizer; kc6 Disposition Summary: 06/06/24 09:22 Discharge Ordered Notes: Location: Home bo1 Problem: an acute exacerbation bo1 Symptoms: are resolved bo1 Condition: Stable bo1 Diagnosis - Moderate persistent asthma with (acute) exacerbation bo1 Followup: bo1 - With: Private Physician - When: Upon discharge from the Emergency Department - Reason: Recheck today's complaints, Continuance of care Discharge Instructions: - Discharge Summary Sheet bo1 - Asthma, Adult bo1 - Asthma Attack bo1 Forms: - Medication Reconciliation Form bo1 - Antibiotic Education bo1 - Prescription Opioid Use bo1 - Patient Portal Instructions bo1 - Leadership Thank You Letter bo1 Prescriptions: - Symbicort 80-4.5 mcg/actuation Inhalation HFA Aerosol Inhaler - inhale 2 puff INHALATION route 2 times per day; 1 unit; Refills: 0, Product bo1 Selection Permitted - budesonide 0.5 mg/2 mL Inhalation Suspension for Nebulization - nebulize 2 milliliter INHALATION route 2 times per day; 25 milliliter; Refills: bo1 0, Product Selection Permitted - Albuterol Sulfate 2.5 mg /3 mL (0.083 %) Inhalation Solution for Nebulization - inhale 1 unit NEBULIZATION route every 8 hours As needed; 25 unit; Refills: 0, bo1 Product Selection Permitted - Prednisone 20 mg Oral Tablet - take 2 tablets ORAL route once daily for 5 days; 10 tablet; Refills: 0, Product bo1 Selection Permitted Signatures: Dispatcher [employer] EDRishi Bagley RN RN bp Campbell, Kaitlyn, RN RN kc6 Celestine Rodriguez MD MD bo1 Corrections: (The following items were deleted from the chart) 07:39 07:39 Chest Single View+[id number].[email or web address] ordered. EDMS EDMS
[2024-06-06 09:44] VITALS: TEMP 98.1
[2024-06-06 09:45] VITALS: BP 130/72; O2SAT 98
== END 2024-06-06 09:40 | disposition home or self-care (01) ==
LOC: ER 07:32
DX: J45.41 Moderate persistent asthma with (acute) exacerbation (principal)
CPT/HCPCS: 71045; 94640; 96374; 99285; J2919; J7613; J7614; J7644

== ENCOUNTER 2024-06-06 11:40 | Emergency (ER) | payer SELFPAY ==
--- OUTSIDE RECORDS SUMMARY | 2024-06-06 11:42 | XMS REPORT | Continuity of Care Document ---
Author Name Unknown Address [address] [place] [address] [facility] Address [address] [place] [address] Care Team Providers Care Android Ui Developer Name Role Phone Unavailable Unavailable Unavailable Problems Condition Name Condition Details Condition Category Status Onset Date Resolution Date Last Treatment Date Treating Clinician Comments Source Costochond ral chest pain Costochond ral chest pain Problem Active [facility] Allergic rhinitis, unspecifie d Allergic rhinitis, unspecifie d Problem Active [facility] Asthma Asthma Problem Active [facility] Allergies, Adverse Reactions, Alerts Allergy Name Allergy Type Status Severity Reaction(s) Onset Date Inactive Date Treating Clinician Comments Source Pet dander Adverse Reaction Active shortness of breath [facility] Medications Ordered Medication Name Filled Medication Name Start Date Stop Date Current Medication? Ordering Clinician Indication Dosage Frequency Signature (SIG) Comments Components Source Symbicort Symbicort 07-08 00:00: 00 11-05 00:00 :00 No Cydney [place] [address] [facility] Albuterol Sulfate HFA Albuterol Sulfate HFA Yes Cydney [place] 2 puffs a s needed [facility] Encounters Start Date/Time End Date/Time Encounter Type Admission Type Attending Clinicians Care Facility Care Department Encounter ID Source 2018-10-01 10:30:00 2018-10-01 10:30:00 Outpatient [facility] [id number] [facility] 2018-08-09 11:30:00 2018-08-09 11:30:00 Outpatient [facility] [id number] [facility] 2018-07-12 14:13:00 2018-07-12 14:13:00 Outpatient [facility] [id number] [facility] 2018-07-08 09:30:00 2018-07-08 09:30:00 Outpatient [facility] [id number] [facility]
[2024-06-06] MEDS ORDERED: CEFTRIAXONE 1000 MG/VIAL ONE (12:47)
[2024-06-06] MEDS ORDERED: LEVALBUTEROL 1.25 MG/3 ML NEB ONE ×2 (12:48→14:01)
[2024-06-06] MEDS ORDERED: IPRATROPIUM BROM 0.5MG/2.5ML ONE (12:48)
[2024-06-06] MEDS ORDERED: METHYLPREDNISOLONE 125 MG INJ ONE (12:48)
[2024-06-06] MEDS ORDERED: predniSONE 20 MG TAB ONE (12:49)
[2024-06-06] MEDS ORDERED: Magnesium Sulfate 2gm IVPB 2 G/50 ML BAG IV ONE (12:49)
[2024-06-06] MEDS ORDERED: AZITHROMYCIN 250 MG TAB ONE (12:49)
[2024-06-06] MEDS ORDERED: NA CHLORIDE 0.9% 1,000 ML ONE ×2 (12:49→14:01)
--- NOTE | 2024-06-06 13:16 | RAD REPORT ---
Procedure: Chest Pa And Lat (2 Views) HISTORY: Cough COMPARISON: June 06, 2023 FINDINGS: The lungs appear clear of acute infiltrate.. Lungs are hyperaerated. No significant pleural effusion noted. The heart is normal size. IMPRESSION: Hyperaerated lungs consistent with reactive airway disease. No acute abnormality is displayed
[2024-06-06 13:18] LABS: Absolute Lymphocytes (CBC) 0.9 K/uL (0.7-4.9); Absolute Monocytes 0.1 K/uL (0.1-1.3); Absolute Neutrophil 8.9 K/uL (1.8-8.0); Basophils % 0.4 % (0-1.3); Eosinophils % 0.4 % (0-4.4); Hematocrit 47.2 % (39.6-49.0); Hemoglobin 15.6 g/dL (13.6-17.9); Lymphocytes % 9.2 % (15.3-44.8); MCH 31.7 pg (27.0-35.0); MCHC 32.9 g/dL (32.0-36.0); MCV 96.1 fL (80-100); MPV 8.5 fL (7.6-11.3); Monocytes % 1.4 % (3.3-12.3); Neutrophils % 88.6 % (41.7-73.7); Platelets 283 thou/uL (152-406); RBC Red Blood Cell Count 4.91 M/uL (4.33-5.43); Red Cell Distribution Width 13.7 % (12.1-15.2)
[2024-06-06 13:27] LABS: SARS-CoV-2 Antigen CONTROL BLUE LINE VIS/BG OK; SARS-CoV-2 Antigen Rapid Res Negative (Negative)
--- NOTE | 2024-06-06 13:31 | ER ---
Nurse's Notes [facility] Name: Reggie Calvo Age: 29 yrs Sex: Male : 1995 Arrival Date: 06/06/2024 Time: 11:40 Bed 12 Private MD: Diagnosis: Moderate persistent asthma with (acute) exacerbation Presentation: 06/06 12:03 Chief complaint: Patient states: BROUGHT BACK BY SPOUSE 2/2 MEDS NOT READY UNTIL 1400. bp Coronavirus screen: At this time, the client does not indicate any symptoms associated with coronavirus-19. Ebola Screen: No symptoms or risks identified at this time. Initial Sepsis Screen: Does the patient meet any 2 criteria? No. Patient's initial sepsis screen is negative. Does the patient have a suspected source of infection? No. Patient's initial sepsis screen is negative. Risk Assessment: Do you want to hurt yourself or someone else? Patient reports no desire to harm self or others. Onset of symptoms is unknown. 12:03 Method Of Arrival: Ambulatory bp 12:03 Acuity: LINDA 4 bp Triage Assessment: 12:04 General: Appears distressed, comfortable, Behavior is appropriate for age. Pain: bp Complains of pain in chest. EENT: No deficits noted. Neuro: No deficits noted. Cardiovascular: No deficits noted. Respiratory: Breath sounds with wheezes bilaterally. GI: No signs and/or symptoms were reported involving the gastrointestinal system. : No signs and/or symptoms were reported regarding the genitourinary system. Derm: No deficits noted. Musculoskeletal: No deficits noted. Historical: - Allergies: 12:04 cats and dogs; bp - PMHx: 12:04 Asthma; bp - Immunization history:: Adult Immunizations up to date. - Infectious Disease History:: Denies. - Social history:: Smoking status: Patient denies any tobacco usage or history of. Screenin:15 [facility] ED Fall Risk Assessment (Adult) History of falling in the last 3 months, rs5 including since admission No falls in past 3 months (0 pts) Confusion or Disorientation No (0 pts) Intoxicated or Sedated No (0 pts) Impaired Gait No (0 pts) Mobility Assist Device Used No (0 pt) Altered Elimination No (0 pt) Score/Fall Risk Level 0 - 2 = Low Risk Oriented to surroundings, Maintained a safe environment. Abuse screen: Denies threats or abuse. Nutritional screening: No deficits noted. Tuberculosis screening: No symptoms or risk factors identified. Assessment: 12:15 General: Appears in no apparent distress. uncomfortable, Behavior is cooperative. Pain: rs5 Denies pain. Neuro: Level of Consciousness is awake, alert, obeys commands, Oriented to person, place, time, situation. Cardiovascular: Patient's skin is warm and dry. Respiratory: Reports shortness of breath cough that is Airway is patent Respiratory effort is even, unlabored, Respiratory pattern is regular, symmetrical. GI: Abdomen is round non-distended, Abd is soft and non tender X 4 quads. : No signs and/or symptoms were reported regarding the genitourinary system. EENT: No signs and/or symptoms were reported regarding the EENT system. Derm: Skin is intact, Skin is pink, warm \T\ dry. Musculoskeletal: Range of motion: intact in all extremities. 13:45 Reassessment: Patient and/or family updated on plan of care and expected duration. Pain rs5 level reassessed. Patient is alert, oriented x 3, equal unlabored respirations, skin warm/dry/pink. 13:46 Reassessment: pt up for discharge, awaiting magnesium to finish, charge nurse notified .rs5 14:20 Reassessment: provider at bedside, decision to adm meds to patient prior to discharge rs5 by provider.. 14:21 Reassessment: to bedside for med adm. rs5 14:21 Reassessment: Patient and/or family updated on plan of care and expected duration. Pain rs5 level reassessed. Patient is alert, oriented x 3, equal unlabored respirations, skin warm/dry/pink. 15:00 Reassessment: Patient and/or family updated on plan of care and expected duration. Pain rs5 level reassessed. Patient is alert, oriented x 3, equal unlabored respirations, skin warm/dry/pink. Patient denies pain at this time. Patient states feeling better. Patient states symptoms have improved. Vital Signs: 12:03 BP 151 / 99; Pulse 113; Resp 24; Temp 98; Pulse Ox 97% ; Weight 59.42 kg; Height 5 ft. bp 5 in. ; 13:43 BP 128 / 88; Pulse 110; Resp 18; Pulse Ox 98% on R/A; rs5 14:20 BP 137 / 89; Pulse 112; Resp 19; Pulse Ox 96% on R/A; rs5 14:50 BP 122 / 79; Pulse 81; Resp 17; Pulse Ox 98% on R/A; rs5 12:03 Body Mass Index 21.80 (59.42 kg, 165.1 cm) bp ED Course: 11:41 Patient arrived in ED. im 11:42 David Reyes MD is Attending Physician. barry 12:04 Triage completed. bp 12:04 Arm band placed on. bp 12:15 Patient has correct armband on for positive identification. Placed in gown. Bed in low rs5 position. Call light in reach. Side rails up X2. 12:15 No provider procedures requiring assistance completed. rs5 12:20 Inserted saline lock: 20 gauge in right forearm, using aseptic technique. rs5 12:33 Joey Jean RN is Primary Nurse. rs5 12:45 Chest Pa And Lat (2 Views) XRAY In Process Unspecified. EDMS 13:30 Isidro [place] MD is Referral Physician. [facility] 15:00 Provided Education on: discharge instructions . rs5 15:00 IV discontinued, intact, bleeding controlled, No redness/swelling at site. Pressure rs5 dressing applied. Administered Medications: 12:10 Drug: Levalbuterol Inhalation 3.75 mg Inhalation once Route: Inhalation; rs5 12:30 Follow up: \T\1230 rs5 12:10 Drug: Ipratropium Inhalation Aerosol 0.5 mg Inhalation once Route: Inhalation; rs5 13:00 Follow up: Response: No adverse reaction; \T\1230 rs5 13:30 Follow up: Response: No adverse reaction; \T\1230 rs5 12:20 Drug: NS 0.9% IV 1000 ml IV at 1000 ml once; to be given as a bolus over 60 minutes rs5 Route: IV; Rate: 1000 ml; Site: right forearm; 13:31 Follow up: Response: No adverse reaction; IV Status: Completed infusion; IV Intake: rs5 999ml 16:45 Follow up: Response: No adverse reaction; COMPLETED \T\1330 rs5 18:05 Follow up: Response: No adverse reaction; COMPLETED \T\1330 rs5 12:20 Drug: Magnesium Sulfate IVPB 2 grams IVPB once over 1 hrs Route: IVPB; Infused Over: 1 rs5 hrs; Site: right forearm; 16:45 Follow up: Response: No adverse reaction; IV Status: Completed infusion; IV Intake: rs5 50ml ; COMPLETED AT 1\T\330 12:20 Drug: MethylPrednisoLONE IVP 125 mg IVP once Route: IVP; Site: right forearm; rs5 12:40 Follow up: Response: No adverse reaction rs5 12:20 Drug: predniSONE PO 60 mg PO once Route: PO; rs5 15:00 Follow up: Response: No adverse reaction; \T\1330 rs5 16:45 Follow up: Response: No adverse reaction; \T\1330 rs5 12:20 Drug: Rocephin IV 1 grams IV at per protocol once; Given slow IV push per pharmacy rs5 instructions Route: IV; Rate: per protocol; Site: right forearm; 12:45 Follow up: Response: No adverse reaction rs5 12:20 Drug: AZITHromycin PO 500 mg PO once Route: PO; rs5 13:30 Follow up: Response: No adverse reaction; NO ADVERSE REACTION AT 1330 rs5 13:57 Not Given (Physician Discretion): levalbuterol1.25 mg Inhalation once rs5 13:57 CANCELLED (Duplicate Order): levalbuterol1.25 mg Inhalation once barry 13:58 CANCELLED (Duplicate Order): ns 0.9% 1000 ml IV at 1000 ml once; to be given as a bolus barry over 60 minutes 14:10 Drug: NS 0.9% IV 1000 ml IV at 1 bolus Per protocol; to be given as a bolus over 60 rs5 minutes Route: IV; Rate: 1 bolus; Site: right antecubital; 15:00 Follow up: Response: No adverse reaction; IV Status: Completed infusion; IV Intake: rs5 1000ml 14:10 Drug: Levalbuterol Inhalation 3.75 mg Inhalation once Route: Inhalation; rs5 15:00 Follow up: Response: No adverse reaction rs5 14:40 Drug: Levalbuterol Inhalation 1.25 mg Inhalation once Route: Inhalation; rs5 15:00 Follow up: Response: No adverse reaction rs5 Medication: 13:46 VIS not applicable for this client. rs5 Intake: 13:31 IV: 999ml; Total: 999ml. rs5 15:00 IV: 1000ml; Total: 1999ml. rs5 16:45 IV: 50ml; Total: 2049ml. rs5 Outcome: 13:30 Discharge ordered by . barry 15:00 Patient left the ED. rs5 15:00 Discharged to home ambulatory, rs5 15:00 Condition: stable 15:00 Discharge instructions given to patient, family, Instructed on discharge instructions, follow up and referral plans. medication usage, Demonstrated understanding of instructions, follow-up care, medications, Prescriptions given X 2, Signatures: Dispatcher [employer] EDTX David Reyes MD MD cha Peltier, Brian RN RN Joey Dill RN RN rs5 Pratima Nolasco Corrections: (The following items were deleted from the chart) 16:40 15:32 Patient left the ED. rs5 rs5 16:41 15:00 Response: No adverse reaction; IV Status: Completed infusion; IV Intake: 1000ml rs5 rs5 16:41 14:30 Response: No adverse reaction rs5 rs5 16:41 15:00 Response: No adverse reaction rs5 rs5 16:44 15:00 Response: No adverse reaction; IV Status: Completed infusion; IV Intake: 1000ml rs5 rs5 16:45 13:35 Response: No adverse reaction; IV Status: Completed infusion; IV Intake: 50ml rs5 rs5 16:45 13:33 Response: No adverse reaction rs5 rs5 18:05 16:45 Response: No adverse reaction; COMPLETED \T\1330 rs5 rs5 18:05 15:22 Reassessment: Patient and/or family updated on plan of care and expected rs5 duration. Pain level reassessed. Patient is alert, oriented x 3, equal unlabored respirations, skin warm/dry/pink. Patient denies pain at this time. Patient states feeling better. Patient states symptoms have improved. rs5 18:06 14:55 Response: No adverse reaction; IV Status: Completed infusion; IV Intake: 1000ml rs5 rs5 18:06 16:45 Response: No adverse reaction; \T\1330 rs5 rs5 18:06 13:30 Response: No adverse reaction; \T\1230 rs5 rs5
--- NOTE | 2024-06-06 13:31 | EDPHYS ---
Physician Documentation [facility] Name: Reggie Calvo Age: 29 yrs Sex: Male : 1995 Arrival Date: 06/06/2024 Time: 11:40 Bed 12 Private MD: ED Physician David Reyes HPI: 06/06 12:38 This 29 yrs old Male presents to ER via Ambulatory with complaints of Asthma barry Exacerbation. 12:38 The patient presents to the emergency department with wheezing, Current therapy: barry albuterol nebs, that began without any particular precipitating event. Onset: The symptoms/episode began/occurred 2 day(s) ago. Modifying factors: The symptoms are alleviated by nothing, the symptoms are aggravated by nothing. Associated signs and symptoms: The patient has no apparent associated signs or symptoms. Severity of symptoms: At their worst the symptoms were moderate in the emergency department the symptoms are unchanged. The patient has not experienced similar symptoms in the past. Historical: - Allergies: 12:04 cats and dogs; bp - PMHx: 12:04 Asthma; bp - Immunization history:: Adult Immunizations up to date. - Infectious Disease History:: Denies. - Social history:: Smoking status: Patient denies any tobacco usage or history of. ROS: 12:39 Constitutional: Negative for fever, chills, and weight loss, Eyes: Negative for injury, barry pain, redness, and discharge, ENT: Negative for injury, pain, and discharge, Neck: Negative for injury, pain, and swelling, Abdomen/GI: Negative for abdominal pain, nausea, vomiting, diarrhea, and constipation, Back: Negative for injury and pain, : Negative for injury, bleeding, discharge, and swelling, MS/Extremity: Negative for injury and deformity, Skin: Negative for injury, rash, and discoloration, Neuro: Negative for headache, weakness, numbness, tingling, and seizure, Psych: Negative for depression, anxiety, suicide ideation, homicidal ideation, and hallucinations, Allergy/Immunology: Negative for hives, rash, and allergies, Endocrine: Negative for neck swelling, polydipsia, polyuria, polyphagia, and marked weight changes, Hematologic/Lymphatic: Negative for swollen nodes, abnormal bleeding, and unusual bruising, 12:39 Cardiovascular: Positive for palpitations, 12:39 Respiratory: Positive for cough, wheezing, inspiratory, expiratory, Exam: 12:39 Constitutional: This is a well developed, well nourished patient who is awake, alert, barry and in no acute distress. Head/Face: Normocephalic, atraumatic. Eyes: Pupils equal round and reactive to light, extra-ocular motions intact. Lids and lashes normal. Conjunctiva and sclera are non-icteric and not injected. Cornea within normal limits. Periorbital areas with no swelling, redness, or edema. ENT: Nares patent. No nasal discharge, no septal abnormalities noted. Tympanic membranes are normal and external auditory canals are clear. Oropharynx with no redness, swelling, or masses, exudates, or evidence of obstruction, uvula midline. Mucous membranes moist. Neck: Trachea midline, no thyromegaly or masses palpated, and no cervical lymphadenopathy. Supple, full range of motion without nuchal rigidity, or vertebral point tenderness. No Meningismus. Chest/axilla: Normal chest wall appearance and motion. Nontender with no deformity. No lesions are appreciated. Cardiovascular: Regular rate and rhythm with a normal S1 and S2. No gallops, murmurs, or rubs. Normal PMI, no JVD. No pulse deficits. Abdomen/GI: Soft, non-tender, with normal bowel sounds. No distension or tympany. No guarding or rebound. No evidence of tenderness throughout. Back: No spinal tenderness. No costovertebral tenderness. Full range of motion. Male : Normal genitalia with no discharge or lesions. Skin: Warm, dry with normal turgor. Normal color with no rashes, no lesions, and no evidence of cellulitis. MS/ Extremity: Pulses equal, no cyanosis. Neurovascular intact. Full, normal range of motion., bilateral aka Neuro: Awake and alert, GCS 15, oriented to person, place, time, and situation. Cranial nerves II-XII grossly intact. Motor strength 5/5 in all extremities. Sensory grossly intact. Cerebellar exam normal. Normal gait. Psych: Awake, alert, with orientation to person, place and time. Behavior, mood, and affect are within normal limits. 12:39 Respiratory: mild respiratory distress is noted, Respirations: normal, Breath sounds: are clear throughout, rhonchi, that are moderate, are scattered, stridor, is not appreciated, + upper airway congestion. wheezing: inspiratory expiratory Vital Signs: 12:03 BP 151 / 99; Pulse 113; Resp 24; Temp 98; Pulse Ox 97% ; Weight 59.42 kg; Height 5 ft. bp 5 in. ; 13:43 BP 128 / 88; Pulse 110; Resp 18; Pulse Ox 98% on R/A; rs5 14:20 BP 137 / 89; Pulse 112; Resp 19; Pulse Ox 96% on R/A; rs5 14:50 BP 122 / 79; Pulse 81; Resp 17; Pulse Ox 98% on R/A; rs5 12:03 Body Mass Index 21.80 (59.42 kg, 165.1 cm) bp MDM: 11:42 Medical Screening Exam initiated [facility] 12:42 Differential diagnosis: acute asthma, exercise-induced asthma, reactive airway, barry anaphylaxis, foreign body. Antibiotic administration: The patient is discharged and will get outpatient antibiotics, Zithromax. Differential Diagnosis: Obstructed Airway Bronchitis Influenza Upper Respiratory Infection Sinusitis Pharyngitis Otitis Media Allergic Rhinitis Asthma Exacerbation Viral Syndrome Pneumonia Tracheal Injury. Data reviewed: vital signs, nurses notes, lab test result(s), radiologic studies, plain films. Consideration of Admission/Observation Escalation of care including admission/observation considered. I considered the following discharge prescriptions or medication management in the emergency department Medications were administered in the Emergency Department. See MAR. Independent interpretation of the following test(s) in the Emergency Department X-Ray: My interpretation is cxr. Test considered but Not performed: EKG: no ekg. 06/06 11:44 Order name: CBC with Diff [facility] 06/06 11:44 Order name: Comprehensive Metabolic Panel; Complete Time: 13:38 [facility] 06/06 11:44 Order name: Flu [facility] 06/06 11:44 Order name: SARS RAPID; Complete Time: 13:30 [facility] 06/06 13:45 Order name: CBC Smear Scan EDMS 06/06 11:44 Order name: Chest Pa And Lat (2 Views) XRAY; Complete Time: 13:30 [facility] Administered Medications: 12:10 Drug: Levalbuterol Inhalation 3.75 mg Inhalation once Route: Inhalation; rs5 12:30 Follow up: \T\1230 rs5 12:10 Drug: Ipratropium Inhalation Aerosol 0.5 mg Inhalation once Route: Inhalation; rs5 13:00 Follow up: Response: No adverse reaction; \T\1230 rs5 13:30 Follow up: Response: No adverse reaction; \T\1230 rs5 12:20 Drug: NS 0.9% IV 1000 ml IV at 1000 ml once; to be given as a bolus over 60 minutes rs5 Route: IV; Rate: 1000 ml; Site: right forearm; 13:31 Follow up: Response: No adverse reaction; IV Status: Completed infusion; IV Intake: rs5 999ml 16:45 Follow up: Response: No adverse reaction; COMPLETED \T\1330 rs5 18:05 Follow up: Response: No adverse reaction; COMPLETED \T\1330 rs5 12:20 Drug: Magnesium Sulfate IVPB 2 grams IVPB once over 1 hrs Route: IVPB; Infused Over: 1 rs5 hrs; Site: right forearm; 16:45 Follow up: Response: No adverse reaction; IV Status: Completed infusion; IV Intake: rs5 50ml ; COMPLETED AT 1\T\330 12:20 Drug: MethylPrednisoLONE IVP 125 mg IVP once Route: IVP; Site: right forearm; rs5 12:40 Follow up: Response: No adverse reaction rs5 12:20 Drug: predniSONE PO 60 mg PO once Route: PO; rs5 15:00 Follow up: Response: No adverse reaction; \T\1330 rs5 16:45 Follow up: Response: No adverse reaction; \T\1330 rs5 12:20 Drug: Rocephin IV 1 grams IV at per protocol once; Given slow IV push per pharmacy rs5 instructions Route: IV; Rate: per protocol; Site: right forearm; 12:45 Follow up: Response: No adverse reaction rs5 12:20 Drug: AZITHromycin PO 500 mg PO once Route: PO; rs5 13:30 Follow up: Response: No adverse reaction; NO ADVERSE REACTION AT 1330 rs5 13:57 Not Given (Physician Discretion): levalbuterol1.25 mg Inhalation once rs5 13:57 CANCELLED (Duplicate Order): levalbuterol1.25 mg Inhalation once barry 13:58 CANCELLED (Duplicate Order): ns 0.9% 1000 ml IV at 1000 ml once; to be given as a bolus barry over 60 minutes 14:10 Drug: NS 0.9% IV 1000 ml IV at 1 bolus Per protocol; to be given as a bolus over 60 rs5 minutes Route: IV; Rate: 1 bolus; Site: right antecubital; 15:00 Follow up: Response: No adverse reaction; IV Status: Completed infusion; IV Intake: rs5 1000ml 14:10 Drug: Levalbuterol Inhalation 3.75 mg Inhalation once Route: Inhalation; rs5 15:00 Follow up: Response: No adverse reaction rs5 14:40 Drug: Levalbuterol Inhalation 1.25 mg Inhalation once Route: Inhalation; rs5 15:00 Follow up: Response: No adverse reaction rs5 Disposition Summary: 06/06/24 13:30 Discharge Ordered Notes: Location: Home [facility] Problem: new barry Symptoms: have improved barry Condition: Stable barry Diagnosis - Moderate persistent asthma with (acute) exacerbation barry Followup: barry - With: Private Physician - When: 2 - 3 days - Reason: Recheck today's complaints, Continuance of care, Re-evaluation by your physician Followup: barry - With: Isidro Colorado MD - When: 2 - 3 days - Reason: Recheck today's complaints, Re-evaluation by your physician Discharge Instructions: - Discharge Summary Sheet [facility] - Asthma, Adult [facility] - How to Use a Metered Dose Inhaler [facility] - Asthma Attack [facility] - Asthma, Adult, [id number] [facility] Forms: - Medication Reconciliation Form [facility] - Antibiotic Education barry - Prescription Opioid Use [facility] - Patient Portal Instructions [facility] - Leadership Thank You Letter [facility] Prescriptions: - albuterol sulfate 90 mcg/actuation Inhalation Aerosol Powder, Breath Activated - administer 2 Inhaler INHALATION route every 4 to 6 hours prn; 2 unit; Refills: barry 0, Product Selection Permitted - Prednisone 20 mg Oral Tablet - take 3 tablets ORAL route once daily for 5 days; 15 tablet; Refills: 0, Product [facility] Selection Permitted - Albuterol Sulfate 2.5 mg /3 mL (0.083 %) Inhalation Solution for Nebulization - inhale 1 unit NEBULIZATION route every 4-6 hours As needed; 36 unit; Refills: barry 0, Product Selection Permitted - Zithromax 500 mg Oral Tablet - take 1 tablet ORAL route once daily for 5 days; 5 tablet; Refills: 0, Product [facility] Selection Permitted Signatures: Dispatcher [employer] David Patel MD MD cha Peltier, Brian, RN RN bp Sotelo, Ricky, RN RN rs5 Corrections: (The following items were deleted from the chart) 11:44 11:44 CBC+H.LAB.BRZ ordered. EDMS EDMS 11:44 11:44 COMPREHENSIVE METABOLIC PANEL+C.LAB.BRZ ordered. EDMS EDMS :44 11:44 Influenza Screen (A \T\ B)+BA.LAB.BRZ ordered. EDMS EDMS 11: 11:44 SARS-COV-2 Antigen Rapid+I.LAB.BRZ ordered. EDMS EDMS 11:44 11:44 Chest Pa And Lat (2 Views)+RAD.RAD.BRZ ordered. EDMS EDMS 13:57 13:57 Levalbuterol Inhalation 1.25 mg Inhalation once ordered. rs5 barry 13:58 13:57 NS 0.9% IV 1000 ml IV at 1000 ml once; to be given as a bolus over 60 minutes barry ordered. barry
[2024-06-06 13:33] LABS: Albumin 4.2 g/dL (3.4-5.0); Albumin/Globulin Ratio 1.1 (1.1-1.8); Bilirubin Total 0.6 mg/dL (0.2-1.0); Protein, Total 8.2 g/dL (6.4-8.2)
[2024-06-06 13:45] LABS: Blood Morphology Comment NOT SEEN (NOT SEEN); Platelet Estimate ADEQ; White Blood Cell Scan OK (OK)
[2024-06-06 15:44] VITALS: TEMP 98
[2024-06-06 15:50] VITALS: BP 128/88; O2SAT 98
== END 2024-06-06 15:32 | disposition home or self-care (01) ==
LOC: ER 11:40
DX: J45.41 Moderate persistent asthma with (acute) exacerbation (principal); Z11.52 Encounter for screening for COVID-19
CPT/HCPCS: 36415; 71046; 80053; 85025; 87804; 87811; 96365; 96366; 96375; 99285; J0696; J2919; J3475; J7030; J7512; J7614; J7644

== ENCOUNTER 2025-01-18 03:44 | Emergency (ER) | payer SELFPAY ==
--- OUTSIDE RECORDS SUMMARY | 2025-01-18 03:47 | XMS REPORT | Continuity of Care Document ---
Author Name Unknown Address [address] [address] [address] [place] [address] [facility] Address [address] [address] [address] [place] [address] Care Team Providers Care Stamp Pad Maker Name Role Phone Unavailable Unavailable Unavailable Problems Condition Name Condition Details Condition Category Status Onset Date Resolution Date Last Treatment Date Treating Clinician Comments Source Costochond ral chest pain Costochond ral chest pain Problem Active [facility] Allergic rhinitis, unspecifie d Allergic rhinitis, unspecifie d Problem Active [facility] Asthma Asthma Problem Active [facility] Allergies, Adverse Reactions, Alerts Allergy Name Allergy Type Status Severity Reaction(s) Onset Date Inactive Date Treating Clinician Comments Source Pet dander Adverse Reaction Active shortness of breath [facility] Medications Ordered Medication Name Filled Medication Name Start Date Stop Date Current Medication? Ordering Clinician Indication Dosage Frequency Signature (SIG) Comments Components Source Symbicort Symbicort 07-08 00:00: 00 11-05 00:00 :00 No [facility] [employer] [facility] 2 puffs Commo n [facility] Albuterol Sulfate HFA Albuterol Sulfate HFA Yes [facility] [employer] 2 puffs a s needed [facility] Encounters Start Date/Time End Date/Time Encounter Type Admission Type Attending Clinicians Care Facility Care Department Encounter ID Source 2018-10-01 10:30:00 2018-10-01 10:30:00 [place] [facility] [place] [id number] [facility] 2018-08-09 11:30:00 2018-08-09 11:30:00 [place] [facility] [place] [id number] [facility] 2018-07-12 14:13:00 2018-07-12 14:13:00 [place] [facility] [place] [id number] [facility] 2018-07-08 09:30:00 2018-07-08 09:30:00 [place] [facility] [place] [id number] [facility]
[2025-01-18] MEDS ORDERED: METHYLPREDNISOLONE 125 MG INJ ONE (03:49)
[2025-01-18] MEDS ORDERED: MAGNESIUM SULFATE 1 gm IVPB 1 GM/100 ML BAG IV ONE ×2 (03:49→04:59)
[2025-01-18] MEDS ORDERED: IPRATROPIUM BROM 0.5MG/2.5ML ONE (04:25)
[2025-01-18] MEDS ORDERED: ALBUTEROL 2.5 MG/3 ML NEB SOL ONE ×2 (04:25→04:54)
--- NOTE | 2025-01-18 06:02 | EDPHYS ---
Physician Documentation [facility] Name: Reggie Calvo Age: 29 yrs Sex: Male : 1995 Arrival Date: 01/18/2025 Time: 03:44 Bed 4 Private MD: ED Physician Kai Goodwin HPI: 01/18 04:07 This 29 yrs old Male presents to ER via Ambulatory with complaints of sob. rn 04:07 The patient has shortness of breath at rest, with light activity. Onset: The rn symptoms/episode began/occurred yesterday. Duration: The symptoms are continuous. The patient's shortness of breath is aggravated by light activity. Severity of symptoms: At their worst the symptoms were severe in the emergency department the symptoms are unchanged. The patient has experienced similar episodes in the past. Patient reports has history of asthma and is having a severe asthma attack. Difficulty breathing started yesterday. No fever or chills. Feels identical to other asthma attacks. No trauma.. Historical: - Allergies: 03:57 cats and dogs; br2 - PMHx: 03:57 Asthma; br2 - Immunization history:: Adult Immunizations up to date. - Infectious Disease History:: Denies. - Social history:: Smoking status: Patient denies any tobacco usage or history of. Patient/guardian denies using alcohol, street drugs. - Family history:: not pertinent. - Hospitalizations: : No recent hospitalization is reported. ROS: 04:07 Constitutional: Negative for fever, chills, and weight loss, Cardiovascular: Negative rn for chest pain, palpitations, and edema, Respiratory: Positive for shortness of breath and wheezing Abdomen/GI: Negative for abdominal pain, nausea, vomiting, diarrhea, and constipation, MS/Extremity: Negative for injury and deformity, Skin: Negative for injury, rash, and discoloration, Neuro: Negative for headache, weakness, numbness, tingling, and seizure, Exam: 04:07 Constitutional: This is a well developed, well nourished patient who is awake, alert, rn moderate tachypnea and speaking 2 or 3 word sentences ENT: No stridor Cardiovascular: Regular rate and rhythm. No pulse deficits. Respiratory: Moderate tachypnea, 2 or 3 word sentences, retractions present Skin: No cyanosis MS/ Extremity: Pulses equal, no cyanosis. Neurovascular intact. Full, normal range of motion. Equal circumference. Vital Signs: 03:55 BP 154 / 117; Pulse 90; Resp 28; Temp 97.2(TE); Pulse Ox 88% on R/A; Weight 56.7 kg; br2 Height 5 ft. 5 in. ; Pain 0/10; 04:27 BP 157 / 99; Pulse 111; Resp 20; Temp 97.2; Pulse Ox 100% on 10 lpm Nebulizer Mask; bm8 Pain 0/10; 04:48 BP 147 / 85; Pulse 119; Resp 20; Temp 97.2; Pulse Ox 95% on R/A; Pain 0/10; bm8 05:46 BP 144 / 72; Pulse 91; Resp 18; Temp 97.2; Pulse Ox 99% on R/A; Pain 0/10; bm8 03:55 Body Mass Index 20.80 (56.70 kg, 165.1 cm) br2 03:55 Pain Scale: Adult br2 04:27 Pain Scale: Adult bm8 04:48 Pain Scale: Adult bm8 05:46 Pain Scale: Adult bm8 Santos Coma Score: 03:58 Eye Response: spontaneous(4). Motor Response: obeys commands(6). Verbal Response: bm8 oriented(5). Total: 15. 04:27 Eye Response: spontaneous(4). Motor Response: obeys commands(6). Verbal Response: bm8 oriented(5). Total: 15. 04:48 Eye Response: spontaneous(4). Motor Response: obeys commands(6). Verbal Response: bm8 oriented(5). Total: 15. 05:46 Eye Response: spontaneous(4). Motor Response: obeys commands(6). Verbal Response: bm8 oriented(5). Total: 15. MDM: 03:47 Medical Screening Exam initiated rn 05:08 ED course: Patient much better but still tachypneic. Recommended admission to the hospital given numerous breathing treatments and still not in any shape to go home. Patient states he is in a tough situation right now, lost his job recently and today is his first shift at his new job. He is concerned that if he does not make his shift he will not be able to pay rent. He states he cannot under any circumstance stay or be admitted to the hospital. I explained to him how dangerous this could be going home in his respiratory state. He states he has to and does not have a choice. Patient understands risks and benefits to both going home and admission to hospital. Will continue nebulizer treatments and continue to observe him in the emergency room and hopefully get him good enough to go to work today as he pleases.. 06:00 Differential diagnosis: asthma, Pneumothorax. Data reviewed: vital signs, nurses notes, rn radiologic studies, plain films. Independent interpretation of the following test(s) in the Emergency Department X-Ray: My interpretation is Chest x-ray images negative for pneumonia or pneumothorax per my interpretation. Care significantly affected by the following chronic conditions: Asthma. Counseling: I had a detailed discussion with the patient and/or guardian regarding the historical points, exam findings, and any diagnostic results supporting the discharge/admit diagnosis, radiology results, the need for outpatient follow up, to return to the emergency department if symptoms worsen or persist or if there are any questions or concerns that arise at home. Response to treatment: the patient's symptoms have markedly improved after treatment, and as a result, I will discharge patient. ED course: Patient feels much better, still insistent on going home. States cannot take a full breath and feels better. Will discharge home with maintenance therapy and patient states has multiple rescue inhalers already. Return precautions given and understood.. 01/18 03:48 Order name: XRAY Chest (1 view) rn 01/18 03:48 Order name: IV Start; Complete Time: 03:58 rn Administered Medications: 03:57 Drug: Levalbuterol Inhalation 1.25 mg Inhalation once Route: Inhalation; bm8 04:29 Follow up: Response: No adverse reaction bm8 03:57 Drug: Levalbuterol Inhalation 1.25 mg Inhalation once Route: Inhalation; bm8 04:29 Follow up: Response: No adverse reaction bm8 03:57 Drug: Levalbuterol Inhalation 1.25 mg Inhalation once Route: Inhalation; bm8 04:29 Follow up: Response: No adverse reaction bm8 03:57 Drug: Ipratropium Inhalation Aerosol 0.5 mg Inhalation once Route: Inhalation; bm8 04:29 Follow up: Response: No adverse reaction bm8 03:57 Drug: Magnesium Sulfate IVPB 1 grams IVPB once over 1 hrs Route: IVPB; Infused Over: 1 bm8 hrs; Site: left forearm; 06:11 Follow up: Response: No adverse reaction; IV Status: Completed infusion bm8 03:57 Drug: MethylPrednisoLONE IVP 125 mg IVP once Route: IVP; Site: left forearm; bm8 04:29 Follow up: Response: No adverse reaction bm8 04:27 Drug: Albuterol Inhalation 2.5 mg Inhalation once Route: Inhalation; bm8 04:50 Follow up: Response: No adverse reaction bm8 04:27 Drug: Ipratropium Inhalation Aerosol 0.5 mg Inhalation once Route: Inhalation; bm8 04:50 Follow up: Response: No adverse reaction bm8 04:58 Drug: Albuterol Inhalation 2.5 mg Inhalation every 20 minutes x3 Route: Inhalation; bm8 05:01 Drug: Magnesium Sulfate IVPB 1 grams IVPB once over 1 hrs Route: IVPB; Infused Over: 1 bm8 hrs; Site: left forearm; 05:48 Follow up: Response: No adverse reaction; IV Status: Completed infusion bm8 05:20 Drug: Albuterol Inhalation 2.5 mg Inhalation every 20 minutes x3 Route: Inhalation; bm8 05:40 Drug: Albuterol Inhalation 2.5 mg Inhalation every 20 minutes x3 Route: Inhalation; bm8 05:48 Follow up: Response: No adverse reaction bm8 Disposition: 06:01 Critical Care:. rn Disposition Summary: 01/18/25 06:01 Discharge Ordered Notes: Location: Home rn Problem: an acute exacerbation rn Symptoms: have improved rn Condition: Stable rn Diagnosis - Unspecified asthma with (acute) exacerbation rn Followup: rn - With: Private Physician - When: As needed - Reason: Recheck today's complaints, Re-evaluation by your physician Discharge Instructions: - Discharge Summary Sheet rn - Asthma Attack rn - Asthma Attack Prevention, Adult rn Forms: - Medication Reconciliation Form rn - Antibiotic telemetry rn - Prescription Opioid Use rn - Patient Portal Instructions rn - Leadership Thank You Letter rn Prescriptions: - budesonide-formoterol 160-4.5 mcg/actuation Inhalation HFA Aerosol Inhaler - inhale 2 puff INHALATION route every 12 hours; 1 unit; Refills: 0, Product rn Selection Permitted - Prednisone 20 mg Oral Tablet - take 3 tablets ORAL route once daily for 5 days; 15 tablet; Refills: 0, Product rn Selection Permitted Critical care time excluding procedures: 06:01 Critical care time: Bedside Care: 35 minutes. Total time: 35 minutes rn Signatures: Dispatcher [employer] Kai Wright MD MD rn McDonald, Brad RN RN bm8 Jessika Pride RN RN br2
--- NOTE | 2025-01-18 06:02 | ER ---
Nurse's Notes [facility] Name: Reggie Calvo Age: 29 yrs Sex: Male : 1995 Arrival Date: 01/18/2025 Time: 03:44 Bed 4 Private MD: Diagnosis: Unspecified asthma with (acute) exacerbation Presentation: 01/18 03:53 Chief complaint: Patient states: PT C/O ASTHMA ATTACK. br2 03:55 Coronavirus screen: Client denies travel out of the [place] in the last 14 days. Ebola br2 Screen: Patient denies exposure to infectious person. Initial Sepsis Screen: Does the patient meet any 2 criteria? RR > 20 per min. HR > 90 bpm. Does the patient have a suspected source of infection? No. Patient's initial sepsis screen is negative. Risk Assessment: Do you want to hurt yourself or someone else? Patient reports no desire to harm self or others. Onset of symptoms is unknown. 03:55 Method Of Arrival: Ambulatory br2 03:55 Acuity: LINDA 3 br2 Triage Assessment: 03:57 General: Appears uncomfortable, slender, Behavior is anxious, restless. Pain: Denies br2 pain. Historical: - Allergies: 03:57 cats and dogs; br2 - PMHx: 03:57 Asthma; br2 - Immunization history:: Adult Immunizations up to date. - Infectious Disease History:: Denies. - Social history:: Smoking status: Patient denies any tobacco usage or history of. Patient/guardian denies using alcohol, street drugs. - Family history:: not pertinent. - Hospitalizations: : No recent hospitalization is reported. Screenin:58 [facility] ED Fall Risk Assessment (Adult) History of falling in the last 3 months, bm8 including since admission No falls in past 3 months (0 pts) Confusion or Disorientation No (0 pts) Intoxicated or Sedated No (0 pts) Impaired Gait No (0 pts) Mobility Assist Device Used No (0 pt) Altered Elimination No (0 pt) Score/Fall Risk Level 0 - 2 = Low Risk Oriented to surroundings, Maintained a safe environment, Educated pt \T\ family on fall prevention, incl call for assistance when getting out of bed, Assessed \T\ reinforced patient's understanding of fall precautions, Hourly rounding (assess needs \T\ fall precautionary measures) done, Used ambulatory aids as needed (educated on \T\ assisted with), Used gait belt as appropriate. Abuse screen: Denies threats or abuse. Nutritional screening: No deficits noted. Tuberculosis screening: No symptoms or risk factors identified. Assessment: 03:58 General: Appears distressed, uncomfortable, Behavior is calm, cooperative, appropriate bm8 for age. Pain: Complains of pain in chest Pain currently is 4 out of 10 on a pain scale. Quality of pain is described as tight. Neuro: Level of Consciousness is awake, alert, obeys commands, Oriented to person, place, time, situation, Appropriate for age. Cardiovascular: Reports chest pain, shortness of breath, Heart tones S1 S2 present Capillary refill < 3 seconds in bilateral fingers Patient's skin is warm and dry. Rhythm is sinus rhythm. Respiratory: Airway is patent Respiratory effort is labored, pursed lip, Respiratory pattern is hypoventilation Breath sounds with wheezes bilaterally. the patient has severe shortness of breath. GI: No signs and/or symptoms were reported involving the gastrointestinal system. : No signs and/or symptoms were reported regarding the genitourinary system. EENT: No signs and/or symptoms were reported regarding the EENT system. Derm: No signs and/or symptoms reported regarding the dermatologic system. Musculoskeletal: No signs and/or symptoms reported regarding the musculoskeletal system. 04:27 Reassessment: Patient appears in no apparent distress at this time. Patient and/or bm8 family updated on plan of care and expected duration. Pain level reassessed. Patient is alert, oriented x 3, equal unlabored respirations, skin warm/dry/pink. Patient states symptoms have improved. General: Appears in no apparent distress. comfortable, Behavior is calm, cooperative, appropriate for age. Respiratory: Airway is patent Respiratory effort is even, labored, Respiratory pattern is regular, symmetrical, Breath sounds with wheezes bilaterally. the patient has mild shortness of breath. 04:48 Reassessment: Patient appears in no apparent distress at this time. Patient and/or bm8 family updated on plan of care and expected duration. Pain level reassessed. Patient is alert, oriented x 3, equal unlabored respirations, skin warm/dry/pink. pt showing signs of improvement, however he is still has expiratory wheezing bilaterally,provider updated on Pts condition Patient states symptoms have improved. 05:46 Reassessment: Patient appears in no apparent distress at this time. Patient and/or bm8 family updated on plan of care and expected duration. Pain level reassessed. Patient is alert, oriented x 3, equal unlabored respirations, skin warm/dry/pink. Patient denies pain at this time. Patient states feeling better. Patient states symptoms have improved. Respiratory: Airway is patent Respiratory effort is even, unlabored, Respiratory pattern is regular, symmetrical, Breath sounds are clear bilaterally. the patient reports symptoms have resolved. Vital Signs: 03:55 BP 154 / 117; Pulse 90; Resp 28; Temp 97.2(TE); Pulse Ox 88% on R/A; Weight 56.7 kg; br2 Height 5 ft. 5 in. ; Pain 0/10; 04:27 BP 157 / 99; Pulse 111; Resp 20; Temp 97.2; Pulse Ox 100% on 10 lpm Nebulizer Mask; bm8 Pain 0/10; 04:48 BP 147 / 85; Pulse 119; Resp 20; Temp 97.2; Pulse Ox 95% on R/A; Pain 0/10; bm8 05:46 BP 144 / 72; Pulse 91; Resp 18; Temp 97.2; Pulse Ox 99% on R/A; Pain 0/10; bm8 03:55 Body Mass Index 20.80 (56.70 kg, 165.1 cm) br2 03:55 Pain Scale: Adult br2 04:27 Pain Scale: Adult bm8 04:48 Pain Scale: Adult bm8 05:46 Pain Scale: Adult bm8 Santos Coma Score: 03:58 Eye Response: spontaneous(4). Motor Response: obeys commands(6). Verbal Response: bm8 oriented(5). Total: 15. 04:27 Eye Response: spontaneous(4). Motor Response: obeys commands(6). Verbal Response: bm8 oriented(5). Total: 15. 04:48 Eye Response: spontaneous(4). Motor Response: obeys commands(6). Verbal Response: bm8 oriented(5). Total: 15. 05:46 Eye Response: spontaneous(4). Motor Response: obeys commands(6). Verbal Response: bm8 oriented(5). Total: 15. ED Course: 03:46 Patient arrived in ED. rn 03:47 Kai Goodwin MD is Attending Physician. rn 03:57 Triage completed. br2 03:57 Luan Styles, EVELINA is Primary Nurse. bm8 03:57 Arm band placed on right wrist. br2 03:58 Patient has correct armband on for positive identification. Bed in low position. Call bm8 light in reach. Side rails up X 1. Client placed on continuous cardiac and pulse oximetry monitoring. NIBP monitoring applied. Pulse ox on. NIBP on. Door closed. Noise minimized. Verbal reassurance given. Head of bed elevated. 03:58 No provider procedures requiring assistance completed. Inserted saline lock: 18 gauge bm8 in left forearm, using aseptic technique. Blood collected. Flushed with 10 mL NS. Oxygen administered via a nebulizer mask. Response to oxygen therapy: symptoms improved. 04:27 XRAY Chest (1 view) In Process Unspecified. EDMS 06:10 Provided Education on: post er care. bm8 06:10 IV discontinued, intact, bleeding controlled, No redness/swelling at site. Pressure bm8 dressing applied. Administered Medications: 03:57 Drug: Levalbuterol Inhalation 1.25 mg Inhalation once Route: Inhalation; bm8 04:29 Follow up: Response: No adverse reaction bm8 03:57 Drug: Levalbuterol Inhalation 1.25 mg Inhalation once Route: Inhalation; bm8 04:29 Follow up: Response: No adverse reaction bm8 03:57 Drug: Levalbuterol Inhalation 1.25 mg Inhalation once Route: Inhalation; bm8 04:29 Follow up: Response: No adverse reaction bm8 03:57 Drug: Ipratropium Inhalation Aerosol 0.5 mg Inhalation once Route: Inhalation; bm8 04:29 Follow up: Response: No adverse reaction bm8 03:57 Drug: Magnesium Sulfate IVPB 1 grams IVPB once over 1 hrs Route: IVPB; Infused Over: 1 bm8 hrs; Site: left forearm; 06:11 Follow up: Response: No adverse reaction; IV Status: Completed infusion bm8 03:57 Drug: MethylPrednisoLONE IVP 125 mg IVP once Route: IVP; Site: left forearm; bm8 04:29 Follow up: Response: No adverse reaction bm8 04:27 Drug: Albuterol Inhalation 2.5 mg Inhalation once Route: Inhalation; bm8 04:50 Follow up: Response: No adverse reaction bm8 04:27 Drug: Ipratropium Inhalation Aerosol 0.5 mg Inhalation once Route: Inhalation; bm8 04:50 Follow up: Response: No adverse reaction bm8 04:58 Drug: Albuterol Inhalation 2.5 mg Inhalation every 20 minutes x3 Route: Inhalation; bm8 05:01 Drug: Magnesium Sulfate IVPB 1 grams IVPB once over 1 hrs Route: IVPB; Infused Over: 1 bm8 hrs; Site: left forearm; 05:48 Follow up: Response: No adverse reaction; IV Status: Completed infusion bm8 05:20 Drug: Albuterol Inhalation 2.5 mg Inhalation every 20 minutes x3 Route: Inhalation; bm8 05:40 Drug: Albuterol Inhalation 2.5 mg Inhalation every 20 minutes x3 Route: Inhalation; bm8 05:48 Follow up: Response: No adverse reaction bm8 Medication: 03:58 VIS not applicable for this client. bm8 Outcome: 06:01 Discharge ordered by . rn 06:10 Discharged to home ambulatory, bm8 06:10 Condition: stable 06:10 Discharge instructions given to patient, family, Instructed on discharge instructions, follow up and referral plans. no drinking with medication, no driving heavy equipment, medication usage, safety practices, Demonstrated understanding of instructions, follow-up care, medications, Prescriptions given X 2, 06:12 Patient left the ED. bm8 Signatures: Dispatcher [employer] EDKai Dewitt MD MD rn McDonald, Brad RN RN bm8 Jessika Pride RN RN br2
--- NOTE | 2025-01-18 06:04 | RAD REPORT ---
INDICATION: DYSPNEA COMPARISON: Chest radiograph January 09, 2025 FINDINGS: Two frontal views of the chest were obtained. SUPPORT DEVICES: None HEART/MEDIASTINUM: Cardiomediastinal contours are normal. LUNGS/PLEURA: Lungs are clear. No pleural effusion or pneumothorax. OTHER: No other significant findings. IMPRESSION: No acute findings. Electronically signed by: Edson Javier DO 01/18/2025 04:45 AM CDT RP NR Due to temporary technical issues with the PACS/[employer] reporting system, reports are being maria isabel d by the in-house radiologist without review as a courtesy to ensure prompt reporting the interpreting radiologist is fully responsible for the content of the report. Transcribed Date/Time: 01/18/2025 6:04 AM
[2025-01-18 06:20] VITALS: TEMP 97.2
[2025-01-18 06:29] VITALS: BP 144/72; O2SAT 99
== END 2025-01-18 06:12 | disposition home or self-care (01) ==
LOC: ER 03:44
DX: J45.901 Unspecified asthma with (acute) exacerbation (principal)
CPT/HCPCS: 71045; 96365; 96366; 96375; 99285; J2919; J3475; J7613; J7644